=== PATIENT | male | born 1965 | race Caucasian/White ===

== ENCOUNTER 2017-02-10 15:34 | Emergency (ER) | payer OTHER ==
[~2017-02-10] VITALS: Ht 170.2 cm; Wt 117.3 kg
[2017-02-10] MEDS ORDERED: ALOG25TA PO (15:52)
[2017-02-10] MEDS ORDERED: CITA20TA4 PO (15:52)
[2017-02-10] MEDS ORDERED: ATOR80TA59 PO (15:52)
[2017-02-10] MEDS ORDERED: METF10004 PO (15:52)
[2017-02-10] MEDS ORDERED: GLYB5TA PO (15:52)
[2017-02-10] MEDS ORDERED: METO1TAB32 PO (15:52)
[2017-02-10] MEDS ORDERED: D 50CAP PO (15:52)
[2017-02-10] MEDS ORDERED: TOUJ1.2I SQ (15:52)
[2017-02-10] MEDS ORDERED: ROLLMIS2 XX (16:56)
[2017-02-10 17:21] VITALS: BP 147/85
--- NOTE | 2017-02-11 07:48 | REP ---
REASON: Right hip pain. COMPARISON: 01/26/2012. FINDINGS: The joint space is symmetric and relatively well maintained. There is no acute fracture or dislocation. No change from the prior exam. AP PELVIS: REASON: Pain. A single AP view of the pelvis was performed. The hip joint spaces are symmetric and relatively well maintained. There is no acute fracture or destructive osseous lesion. Signed by Leobardo Cruz DO 02/11/2017 08:56 A
--- NOTE | 2017-02-11 07:49 | REP ---
REASON: Knee pain. FINDINGS: The compartments are symmetric and relatively well maintained. There is no acute fracture or destructive osseous lesion. No significant change from 02/04/2010. Signed by Leobardo Cruz DO 02/11/2017 08:56 A
== END 2017-02-10 17:23 | disposition home or self-care (01) ==
LOC: M ED 15:34 → EDBD 15:34 → M ED 17:23
DX: S80.01XA Contusion of right knee, initial encounter (principal); S70.01XA Contusion of right hip, initial encounter; R26.9 Unspecified abnormalities of gait and mobility; W00.0XXA Fall on same level due to ice and snow, initial encounter; Y92.009 Unspecified place in unspecified non-institutional (private) residence as the place of occurrence of the external cause; Y93.01 Activity, walking, marching and hiking; Y99.8 Other external cause status; E11.9 Type 2 diabetes mellitus without complications; I10 Essential (primary) hypertension; M54.9 Dorsalgia, unspecified; G89.29 Other chronic pain; F17.210 Nicotine dependence, cigarettes, uncomplicated; M19.90 Unspecified osteoarthritis, unspecified site; Z79.4 Long term (current) use of insulin; Z79.899 Other long term (current) drug therapy; Z79.84 Long term (current) use of oral hypoglycemic drugs

== ENCOUNTER → 2018-12-17 | Outpatient (REF) | payer OTHER, MEDICAID ==
[~2018-12-17] MED LIST: ALOG25TA PO; ATOR80TA59 PO; CITA20TA6 PO; D 50CAP PO; GLYB5TA PO; METF10004 PO; METO1TAB32 PO; ROLLMIS2 XX; TOUJ1.2I SQ
[2018-12-17 17:58] LABS: BASO # 0.1 10^3/uL (0.0-0.2); BASO % 0.9 % (0.0-1.0); EOS # 0.2 10^3/uL (0.0-0.5); EOS % 2.9 % (0.0-3.0); HEMATOCRIT 45.3 % (42.0-52.0); HEMOGLOBIN 15.2 g/dl (13.5-17.5); LYMPH # 2.6 10^3/uL (1.5-5.0); LYMPH % 34.8 % (24.0-44.0); MEAN CORPUSCULAR HEMOGLOBIN 29.5 pg (27.0-33.0); MEAN CORPUSCULAR HGB CONC 33.6 g/dl (32.0-36.5); MONO # 0.7 10^3/uL (0.0-0.8); MONO % 9.6 % (0.0-5.0); NEUTROPHILS # 3.9 10^3/uL (1.5-8.5); NEUTROPHILS % 51.4 % (36.0-66.0); PLATELET COUNT, AUTOMATED 191 10^3/uL (150-450); RED BLOOD COUNT 5.15 10^6/uL (4.30-6.10); WHITE BLOOD COUNT 7.6 10^3/uL (4.0-10.0)
[2018-12-17 18:04] LABS: ALBUMIN 4.1 GM/DL (3.2-5.2); ALT/SGPT 44 U/L (12-78); BILIRUBIN,TOTAL 0.6 MG/DL (0.2-1.0); BLOOD UREA NITROGEN 17 MG/DL (7-18); CALCIUM LEVEL 9.8 MG/DL (8.5-10.1); CARBON DIOXIDE LEVEL 28 MEQ/L (21-32); CHLORIDE LEVEL 99 MEQ/L (98-107); CHOLESTEROL LEVEL 155 MG/DL (<200); CHOLESTEROL RISK RATIO 3.974 (<5); CREATININE FOR GFR 0.99 MG/DL (0.70-1.30); FREE T4 1.08 NG/DL (0.76-1.46); GLOMERULAR FILTRATION RATE > 60.0 (>56); GLUCOSE, FASTING 314 MG/DL (70-100); HDL CHOLESTEROL 39 MG/DL (>40); LDL CHOLESTEROL 70 MG/DL (<100); NON-HDL-C 116 MG/DL; POTASSIUM SERUM 4.3 MEQ/L (3.5-5.1); SODIUM LEVEL 136 MEQ/L (136-145); TOTAL 25(OH) VITAMIN D 30.2 NG/ML (30.0-100.0); TOTAL PROTEIN 7.8 GM/DL (6.4-8.2); TRIGLYCERIDES LEVEL 232 MG/DL (<150)
[2018-12-17 18:05] LABS: HEMOGLOBIN A1c 10.8 %
== END ==
LOC: M LAB REF 16:35
PROVIDERS: ATTEND Nurse Practitioner Family
DX: Z00.01 Encounter for general adult medical examination with abnormal findings (principal)

== ENCOUNTER → 2019-04-08 | Outpatient (REF) | payer OTHER, MEDICAID ==
[2019-04-08 19:09] LABS: ALBUMIN 4.7 GM/DL (3.2-5.2); ALT/SGPT 37 U/L (12-78); BLOOD UREA NITROGEN 15 MG/DL (7-18); CALCIUM LEVEL 9.4 MG/DL (8.5-10.1); CARBON DIOXIDE LEVEL 30 MEQ/L (21-32); CHLORIDE LEVEL 102 MEQ/L (98-107); CHOLESTEROL LEVEL 87 MG/DL (<200); CHOLESTEROL RISK RATIO 2.718 (<5); GLOMERULAR FILTRATION RATE > 60.0 (>56); GLUCOSE, FASTING 81 MG/DL (70-100); HDL CHOLESTEROL 32 MG/DL (>40); LDL CHOLESTEROL 35 MG/DL (<100); NON-HDL-C 55 MG/DL; POTASSIUM SERUM 4.1 MEQ/L (3.5-5.1); SODIUM LEVEL 140 MEQ/L (136-145); TOTAL PROTEIN 8.2 GM/DL (6.4-8.2); TRIGLYCERIDES LEVEL 101 MG/DL (<150)
[2019-04-08 19:27] LABS: HEMOGLOBIN A1c 10.7 %
== END ==
LOC: M LAB REF 17:49
PROVIDERS: ATTEND Family Medicine
DX: E11.9 Type 2 diabetes mellitus without complications (principal)

== ENCOUNTER → 2019-05-12 | Outpatient (CLI) | payer OTHER, MEDICAID ==
--- NOTE | 2019-05-12 19:12 | REPPI ---
Lumbar spine seven views including lateral views were in flexion and extension: Comparison is 08/29/2010. There are anterior osteophytes at every lumbar level. These osteophytes bridging at L2-3, L3-4 and L5 S1. This has progressed. Findings are compatible with multilevel degenerative disc disease. There is no spondylolysis. There is no spondylolisthesis. There is no listhesis on the flexion or extension views. The pedicles and facets are unremarkable. The sacroiliac articulations are unremarkable. Impression: Multilevel degenerative disc disease. No spondylolysis or spondylolisthesis including flexion and extension views. Electronically Signed by Ford Esquivel MD 05/12/2019 07:03 P
== END ==
LOC: M PLAIMG 10:17
PROVIDERS: ATTEND Family Medicine
DX: M54.5 Low back pain (principal)

== ENCOUNTER → 2019-08-21 | Outpatient (REF) | payer OTHER, MEDICAID ==
[2019-08-21 12:02] LABS: BASO # 0.1 10^3/uL (0.0-0.2); BASO % 0.6 % (0.0-1.0); EOS # 0.2 10^3/uL (0.0-0.5); EOS % 1.7 % (0.0-3.0); HEMATOCRIT 47.5 % (42.0-52.0); HEMOGLOBIN 15.2 g/dl (13.5-17.5); LYMPH # 4.4 10^3/uL (1.5-5.0); LYMPH % 32.9 % (24.0-44.0); MEAN CORPUSCULAR HEMOGLOBIN 28.2 pg (27.0-33.0); MEAN CORPUSCULAR VOLUME 88.1 fl (80.0-96.0); MONO # 1.1 10^3/uL (0.0-0.8); MONO % 8.4 % (0.0-5.0); NEUTROPHILS # 7.5 10^3/uL (1.5-8.5); NEUTROPHILS % 55.9 % (36.0-66.0); PLATELET COUNT, AUTOMATED 246 10^3/uL (150-450); RED BLOOD COUNT 5.39 10^6/uL (4.30-6.10); WHITE BLOOD COUNT 13.5 10^3/uL (4.0-10.0)
[2019-08-21 12:56] LABS: HEMOGLOBIN A1c 9.1 %
[2019-08-21 13:17] LABS: ALBUMIN 4.2 GM/DL (3.2-5.2); ALT/SGPT 39 U/L (12-78); BILIRUBIN,TOTAL 0.8 MG/DL (0.2-1.0); BLOOD UREA NITROGEN 23 MG/DL (7-18); CALCIUM LEVEL 9.4 MG/DL (8.5-10.1); CARBON DIOXIDE LEVEL 28 MEQ/L (21-32); CHLORIDE LEVEL 102 MEQ/L (98-107); CHOLESTEROL LEVEL 178 MG/DL (<200); CHOLESTEROL RISK RATIO 3.787 (<5); CREATININE FOR GFR 0.96 MG/DL (0.70-1.30); GLOMERULAR FILTRATION RATE > 60.0 (>56); GLUCOSE, FASTING 61 MG/DL (70-100); HDL CHOLESTEROL 47 MG/DL (>40); LDL CHOLESTEROL 101 MG/DL (<100); NON-HDL-C 131 MG/DL; POTASSIUM SERUM 3.7 MEQ/L (3.5-5.1); SODIUM LEVEL 138 MEQ/L (136-145); TOTAL PROTEIN 7.7 GM/DL (6.4-8.2); TRIGLYCERIDES LEVEL 152 MG/DL (<150)
[2019-08-22 18:23] LABS: TOTAL 25(OH) VITAMIN D 32.3 NG/ML (30.0-100.0)
== END ==
LOC: M LAB REF 11:15
PROVIDERS: ATTEND Family Medicine
DX: E11.65 Type 2 diabetes mellitus with hyperglycemia (principal)

== ENCOUNTER → 2019-11-21 | Outpatient (CLI) | payer OTHER, MEDICAID ==
[~2019-11-21] MED LIST changes: +ASPI81TA26 PO; +BASA100I SQ; +CHOL50003 PO; +CYCL-707 PO; +FLOM0.4C39 PO; +LEVO750T13 PO; +LISI40TA PO; +MELO15TA28 PO; +METO1TAB33 PO; +PERCOCET PO; +TRAM50TA2 PO; +TRUL0.5I SQ
[2019-11-21 13:57] LABS: ALBUMIN 4.2 GM/DL (3.2-5.2); ALT/SGPT 39 U/L (12-78); BILIRUBIN,TOTAL 0.8 MG/DL (0.2-1.0); BLOOD UREA NITROGEN 19 MG/DL (7-18); CALCIUM LEVEL 9.4 MG/DL (8.5-10.1); CARBON DIOXIDE LEVEL 29 MEQ/L (21-32); CHLORIDE LEVEL 102 MEQ/L (98-107); CHOLESTEROL LEVEL 101 MG/DL (<200); CHOLESTEROL RISK RATIO 2.463 (<5); GLOMERULAR FILTRATION RATE > 60.0 (>56); GLUCOSE, FASTING 138 MG/DL (70-100); HDL CHOLESTEROL 41 MG/DL (>40); LDL CHOLESTEROL 41 MG/DL (<100); NON-HDL-C 60 MG/DL; POTASSIUM SERUM 4.4 MEQ/L (3.5-5.1); SODIUM LEVEL 139 MEQ/L (136-145); TOTAL 25(OH) VITAMIN D 41.3 NG/ML (30.0-100.0); TOTAL PROTEIN 7.5 GM/DL (6.4-8.2); TRIGLYCERIDES LEVEL 97 MG/DL (<150)
[2019-11-21 15:47] LABS: HEMOGLOBIN A1c 9.9 %
== END ==
LOC: M PLALAB 10:32
PROVIDERS: ATTEND Family Medicine Addiction Medicine
DX: E11.65 Type 2 diabetes mellitus with hyperglycemia (principal); E78.5 Hyperlipidemia, unspecified

== ENCOUNTER 2019-12-22 18:14 | Inpatient (IN) | payer OTHER, MEDICAID ==
[~2019-12-22] VITALS: Ht 170.2 cm; Wt 115.0 kg
[~2019-12-22 18:14] MED LIST changes: -ASPI81TA26 PO; -BASA100I SQ; -CHOL50003 PO; -CYCL-707 PO; -FLOM0.4C39 PO; -LEVO750T13 PO; -LISI40TA PO; -MELO15TA28 PO; -METO1TAB33 PO; -PERCOCET PO; -TRAM50TA2 PO; -TRUL0.5I SQ
[2019-12-22] MEDS ORDERED: LISI40TA PO ×2 (18:31→21:33)
[2019-12-22] MEDS ORDERED: CYCL-707 PO ×2 (18:31→21:33)
[2019-12-22] MEDS ORDERED: MELO15TA28 PO ×2 (18:31→21:33)
[2019-12-22] MEDS ORDERED: METO1TAB33 PO ×2 (18:31→21:33)
[2019-12-22] MEDS ORDERED: ASPI81TA26 PO (18:31)
[2019-12-22] MEDS ORDERED: TRAM50TA2 PO ×2 (18:31→21:33)
[2019-12-22] MEDS ORDERED: BASA100I SQ (18:31)
[2019-12-22] MEDS ORDERED: TRUL0.5I SQ (18:31)
[2019-12-22] MEDS ORDERED: ACETAMINOPHEN TAB 650MG DOSE (2X325MG) PO ONE (18:45)
[2019-12-22 19:10] LABS: BASO # 0.1 10^3/uL (0.0-0.2); BASO % 0.5 % (0.0-1.0); EOS % 0.2 % (0.0-3.0); HEMATOCRIT 40.5 % (42.0-52.0); HEMOGLOBIN 13.2 g/dl (13.5-17.5); LYMPH # 1.4 10^3/uL (1.5-5.0); LYMPH % 5.2 % (24.0-44.0); MEAN CORPUSCULAR HEMOGLOBIN 27.7 pg (27.0-33.0); MEAN CORPUSCULAR HGB CONC 32.6 g/dl (32.0-36.5); MEAN CORPUSCULAR VOLUME 84.9 fl (80.0-96.0); MONO # 1.9 10^3/uL (0.0-0.8); MONO % 7.1 % (0.0-5.0); NEUTROPHILS # 22.6 10^3/uL (1.5-8.5); NEUTROPHILS % 85.3 % (36.0-66.0); PLATELET COUNT, AUTOMATED 267 10^3/uL (150-450); RED BLOOD COUNT 4.77 10^6/uL (4.30-6.10); WHITE BLOOD COUNT 26.5 10^3/uL (4.0-10.0)
[2019-12-22 19:47] LABS: ERYTHROCYTE SEDIMENTATION RATE 66 mm/hr (0-20)
--- NOTE | 2019-12-22 20:20 | REPVR ---
PROCEDURE INFORMATION: Exam: XR Chest, 1 View Exam date and time: 12/22/2019 7:14 PM Age: 54 years old Clinical indication: Fever TECHNIQUE: Imaging protocol: XR of the chest Views: 1 view. COMPARISON: No relevant prior studies available. FINDINGS: Lungs: There is severe elevation of the right hemidiaphragm to the level of the infrahilar region. This may be secondary to paralysis of the right hemidiaphragm. Surgical clips are noted right upper quadrant probably at the gallbladder fossa. There is no evidence of localized infiltrate. AP and lateral view of the chest should be considered to better evaluate the right lung base. Pleural space: Unremarkable. No pleural effusion. No pneumothorax. Heart/Mediastinum: The heart is normal in size. Bones/joints: There is osteophyte formation of the thoracic spine. IMPRESSION: 1. Clear appearing lungs. 2. Severe elevation of the right hemidiaphragm possibly chronic. Suggest PA and lateral view of the chest for clarification. Electronically signed by: Stanford Hughes On 12/22/2019 20:20:37 PM
--- NOTE | 2019-12-22 20:25 | REPVR ---
PROCEDURE INFORMATION: Exam: XR Right Foot Exam date and time: 12/22/2019 7:14 PM Age: 54 years old Clinical indication: Pain; Foot; Right; Additional info: Fever TECHNIQUE: Imaging protocol: XR Right foot. Views: 1 or 2 views. COMPARISON: No relevant prior studies available. FINDINGS: Bones/joints: There is no evidence of fracture or bone loss. Moderate calcaneal spurs are identified. Soft tissues: There is severe soft tissue swelling dorsal aspect of the foot with a large amount of subcutaneous air. The subcutaneous air would be suspicious for infection with gas-forming organism. Prominent vascular calcification is identified. IMPRESSION: Severe soft tissue swelling and subcutaneous air at the dorsal aspect of the foot especially at the 4th and 5th metatarsals. This is highly suspicious for infection with gas-forming organism. Electronically signed by: Stanford Hughes On 12/22/2019 20:25:05 PM
[2019-12-22] MEDS ORDERED: ERTAPENEM SODIUM 1 GM in NS MINI-BAG PLUS 50 ML IV ONE (20:45)
[2019-12-22] MEDS ORDERED: CHOL50003 PO (21:33)
[2019-12-22] MEDS ORDERED: CYCLOBENZAPRINE 10MG TABLET PO PRN (23:15)
[2019-12-22] MEDS ORDERED: DEXTROSE 50% 50 ML SYRINGE IV PRN (23:15)
[2019-12-22] MEDS ORDERED: GLUCAGON INJ 1MG VIAL SC PRN (23:15)
[2019-12-22] MEDS ORDERED: GLUCOSE 4GM CHEW TABLET PO PRN (23:15)
--- NOTE | 2019-12-22 23:19 | HPEPDOC ---
General Date of Admission 12/22/19 Date of Service: Dec 22, 2019 Chief Complaint The patient is a 54-year-old male admitted with a reason for visit of Right Foot Pain. History of Present Illness Patient is 54 years old male with past history of type 2 diabetes, hypertension presented to the hospital with right foot pain. Patient stated that for past 5-6 days he has been having swollen right foot with increased redness and pain. Patient stated that he hit his right foot against the door around 6 days ago and after that he started having these symptoms. In ER patient was found to have leukocytosis of 26.5, hemoglobin 13.2, lactic acid 2.2, CRP 28.9, sedimentation rate 66. Foot x-ray showed Severe soft tissue swelling and subcutaneous air at the dorsal aspect of the foot especially at the 4th and 5th metatarsals. This is highly suspicious for infection with gas-forming organism Home Medications Scheduled Alogliptin Benzoate (Alogliptin) 25 Mg Tab, 25 MG PO DAILY, (Reported) Aspirin (Aspirin EC) 81 Mg Tablet.dr, 1 TAB PO DAILY, (Reported) Atorvastatin Calcium (Atorvastatin Calcium) 80 Mg Tab, 80 MG PO DAILY, (Reported) Cholecalciferol (Vitamin D3) (Vitamin D3) 125 Mcg Capsule, 125 MCG PO DAILY, (Reported) Citalopram Hydrobromide (Citalopram HBr) 20 Mg Tab, 20 MG PO DAILY, (Reported) Dulaglutide (Trulicity) 1.5 Mg/0.5 Ml Pen.injctr, 1.5 MG SQ 1XWK, (Reported) TAKES ON SUNDAY Insulin Glargine,Hum.rec.anlog (Basaglar Kwikpen U-100) 100 Unit/1 Ml Insuln.pen, 100 UNITS SQ DAILY, (Reported) Lisinopril (Lisinopril) 40 Mg Tablet, 40 MG PO DAILY, (Reported) Meloxicam (Meloxicam) 15 Mg Tablet, 15 MG PO DAILY, (Reported) Metformin HCl (Metformin HCl) 1,000 Mg Tab, 1,000 MG PO BID, (Reported) Metoprolol Succinate (Metoprolol Succinate) 100 Mg Tab.er.24h, 100 MG PO DAILY, (Reported) Scheduled PRN Cyclobenzaprine HCl (Cyclobenzaprine HCl) 10 Mg Tablet, 10 MG PO TID PRN for MUSCLE SPASMS, (Reported) Tramadol HCl (Tramadol HCl) 50 Mg Tablet, 50 MG PO Q4H PRN for PAIN, (Reported) Allergies Coded Allergies: No Known Allergies (Unverified , 02/10/17) Past Medical History Medical History Hypertension, type 2 diabetes Family History Father from colon cancer, mother from brain cancer Social History * Smoker: Denies Alcohol: Denies Drugs: denies A-FIB/CHADSVASC A-FIB History Current/History of A-Fib/PAF?: No Current PO Anticoag Therapy: No Review of Systems Constitutional: Denies: Chills, Fever Eyes: Denies: Pain ENT: Denies: Head Aches, Ear Pain Skin: Reports: Lesions, Breakdown Pulmonary: Denies: Dyspnea, Cough Gastrointestinal: Denies: Nausea, Vomiting Genitourinary: Denies: Dysuria, Frequency Hematologic: Denies: Bruising Endocrine: Denies: Polydipsia, Polyphagia Musculoskeletal: Denies: Neck Pain Neurological: Denies: Weakness Psych: Reports: Mood Normal Physical Examination General Exam: Positive: Alert, Cooperative Eye Exam: Positive: PERRLA ENT Exam: Positive: Atraumatic, Other ENT Neck Exam: Positive: Supple; Negative: JVD Chest Exam: Positive: Clear to auscultation Heart Exam: Positive: Rate Normal Telemetry: Positive: No significant arrhythmia Abdomen Exam: Positive: Normal bowel sounds Extremity Exam: Positive: Tenderness (right foot), Swelling (right foot), Other (there is small noninfected wound on the lateral plantar surface of the right foot around 1-2 cm. On the dorsal part of the right foot skin abrasion around 5- 7 cm. Right foot swollen with erythema) Skin Exam: Positive: Breakdown Neuro Exam: Positive: Normal Gait, Cranial Nerves 3-12 NL Psych Exam: Positive: Mental status NL Vital Signs Vital Signs Date Time Temp Pulse Resp B/P (MAP) Pulse Ox O2 Delivery O2 Flow Rate FiO2 12/22/19 21:23 99.6 100 20 131/71 (91) 96 Room Air Laboratory Data Labs 24H Laboratory Tests 2 12/22/19 18:37: Immature Granulocyte % (Auto) 1.7, Neutrophils (%) (Auto) 85.3H, Lymphocytes (%) (Auto) 5.2L, Monocytes (%) (Auto) 7.1H, Eosinophils (%) (Auto) 0.2, Basophils (%) (Auto) 0.5, Neutrophils # (Auto) 22.6H, Lymphocytes # (Auto) 1.4L, Monocytes # (Auto) 1.9H, Eosinophils # (Auto) 0.0, Basophils # (Auto) 0.1, Nucleated Red Blood Cells % (auto) 0.0, Erythrocyte Sedimentation Rate 66H, Lactic Acid Level 2.2*H, C-Reactive Protein, Quantitative 28.90H 12/22/19 18:58: POC Glucose (Misc Panel) 160H, POC Sodium (Misc Panel) 132L, POC Potassium (Misc Panel) 3.6, POC Chloride (Misc Panel) 92L, POC Total CO2 (Misc Panel) 25.0, POC Blood Urea Nitrogen (Misc Panel 33H, POC Ionized Calcium (Misc Panel) 4.3L, POC Creatinine (Misc Panel) 1.4H, POC Hematocrit (Misc Panel) 44.0 CBC/BMP Laboratory Tests 12/22/19 18:37 Microbiology Microbiology 12/22/19 Blood Culture, Received Pending 12/22/19 Blood Culture, Received Pending Assessment/Plan Patient is 54 years old male with past history of type 2 diabetes, hypertension presented to the hospital with right foot pain. Patient stated that for past 5-6 days he has been having swollen right foot with increased redness and pain. Patient stated that he hit his right foot against the door around 6 days ago and after that he started having these symptoms. In ER patient was found to have leukocytosis of 26.5, hemoglobin 13.2, lactic acid 2.2, CRP 28.9, sedimentation rate 66. Foot x-ray showed Severe soft tissue swelling and subcutaneous air at the dorsal aspect of the foot especially at the 4th and 5th metatarsals. 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
[2019-12-22] MEDS ORDERED: VANCOMYCIN HCL 1,000 MG, VIAL MATE ADAPTER 1 EACH in D5W 250 ML IV ONE (23:30)
[2019-12-22] MEDS: HumaLOG INSULIN (NovoLOG) PER UNIT SC SCH (23:48)
[2019-12-23] VITALS (13 sets, daily range): BP systolic 94–155; BP diastolic 50–87
[2019-12-23] MEDS: NS 1,000 ML IV SCH ×3 (01:33→19:50)
[2019-12-23] MEDS: LEVEMIR (INSULIN DETEMIR) 1 UNITS/0.01ML SC SCH ×2 (01:33→08:04)
[2019-12-23] MEDS: ACETAMINOPHEN TAB 650MG DOSE (2X325MG) PO PRN (01:39)
[2019-12-23] MEDS: traMADol 50 MG TAB PO PRN (01:40)
[2019-12-23] MEDS ORDERED: VANCOMYCIN HCL 1,000 MG, VIAL MATE ADAPTER 1 EACH in D5W 250 ML IV SCH (02:00)
[2019-12-23] MEDS: CEFEPIME HCL 2 GM in D5W 50 ML IV SCH ×2 (05:55→19:50)
[2019-12-23 06:17] LABS: HEMATOCRIT 35.6 % (42.0-52.0); HEMOGLOBIN 11.9 g/dl (13.5-17.5); MEAN CORPUSCULAR HEMOGLOBIN 27.9 pg (27.0-33.0); MEAN CORPUSCULAR HGB CONC 33.4 g/dl (32.0-36.5); MEAN CORPUSCULAR VOLUME 83.4 fl (80.0-96.0); PLATELET COUNT, AUTOMATED 243 10^3/uL (150-450); RED BLOOD COUNT 4.27 10^6/uL (4.30-6.10); WHITE BLOOD COUNT 20.8 10^3/uL (4.0-10.0)
[2019-12-23 06:34] LABS: BLOOD UREA NITROGEN 38 MG/DL (7-18); CALCIUM LEVEL 8.9 MG/DL (8.5-10.1); CARBON DIOXIDE LEVEL 27 MEQ/L (21-32); CHLORIDE LEVEL 95 MEQ/L (98-107); CREATININE FOR GFR 1.17 MG/DL (0.70-1.30); GLOMERULAR FILTRATION RATE > 60.0 (>56); GLUCOSE, FASTING 158 MG/DL (70-100); MAGNESIUM LEVEL 1.4 MG/DL (1.8-2.4); POTASSIUM SERUM 3.1 MEQ/L (3.5-5.1); SODIUM LEVEL 129 MEQ/L (136-145)
[2019-12-23] MEDS ORDERED: NS 500 ML IV ONE (07:30)
[2019-12-23] MEDS ORDERED: POTASSIUM CHLORIDE 10 MEQ SR TABLET PO ONE (07:45)
[2019-12-23] MEDS: MAG SULF 1GM/100ML (MAG RUN) 1 GM in IV 1 EA IV SCH ×4 (08:18→11:00)
[2019-12-23] MEDS: HumaLOG INSULIN (NovoLOG) PER UNIT SC SCH ×2 (08:18→12:00)
[2019-12-23] MEDS: MELOXICAM (MOBIC) 7.5 MG TAB PO SCH (08:19)
[2019-12-23] MEDS: ATORVASTATIN 20 MG TAB PO SCH (08:19)
[2019-12-23] MEDS: CitaloPRAM (CeleXA) 20 MG TAB PO SCH (08:19)
[2019-12-23] MEDS: ASPIRIN 81 MG ENTERIC TAB PO SCH (08:19)
--- NOTE | 2019-12-23 08:25 | ECGEPIP ---
- ED Test Date: 2019-12-22 Pat Name: NADIA PERDOMO Department: Room: [place] [address] Gender: Male Pan Devulcanizer: BARBARA : 1965 Requested By: Pollo Banks Order Number: [id number] Reading MD: Pollo Jane Measurements Intervals [place] Rate: 106 P: 67 WI: 128 QRS: 13 QRSD: 100 T: 77 QT: 344 QTc: 459 Interpretive Statements SINUS TACHYCARDIA POOR R WAVE PROGRESSION NSTTW ABNORMALITY(S) NO PRIORS FOR COMPARISON Electronically Signed on 12-23-2019 8:25:17 EDT by Pollo Jane
[2019-12-23] MEDS ORDERED: METOPROLOL SUCC (TopROL XL) 100MG *XL* TAB PO SCH (09:00)
[2019-12-23] MEDS ORDERED: lisinopriL 40 MG TAB PO SCH (09:00)
--- NOTE | 2019-12-23 10:59 | REPVR ---
PROCEDURE INFORMATION: Exam: MR Right Lower Extremity Other Than Joint Without Contrast; Foot Exam date and time: 12/23/2019 10:40 AM Age: 54 years old Clinical indication: Pain; Foot and other: Osteomyelitis of right foot TECHNIQUE: Imaging protocol: MR of the Right lower extremity without contrast. Exam focused on the foot. COMPARISON: CR Foot, Ap, Lat RIGHT 12/22/2019 7:08 PM FINDINGS: Limitations: Mild motion on some sequences. Bones and cartilage: There is no significant marrow edema, osseous erosion or cortical destruction to indicate osteomyelitis. There are again 1st through 5th hammertoe deformities. Joint spaces: There are very small effusions of the metatarsophalangeal joints. LIGAMENTS: Lisfranc ligament: Unremarkable. No evidence of tear. TENDONS: Flexor tendons of foot: Small fluid is present in the 5th flexor digitorum tendon sheath at the level of the metatarsal distally. The flexor tendons themselves are intact, and there is no other significant peritendinous fluid. Tibialis posterior tendon: Unremarkable as visualized. Peroneal tendons: Unremarkable as visualized. Extensor tendons of foot: Unremarkable. No evidence of tear. Tibialis anterior tendon: Unremarkable as visualized. Tarsal canal (Sinus tarsi): Unremarkable. Muscles: Moderate edema involves much of the plantar and interosseous musculature of the foot. Soft tissues: Moderate subcutaneous edema is present about much of the foot. There is some thin curvilinear fluid in the deep soft tissues over the plantar aspect of the 1st metatarsal neck and head, potentially a small abscess. There is a plantar soft tissue ulceration at the level of the 5th metatarsal head, extending to the bone. Plantar fascia: Unremarkable as visualized. IMPRESSION: 1. Moderate subcutaneous edema about much of the foot, could reflect cellulitis. 2. Thin curvilinear fluid in the deep soft tissues over the plantar aspect of the 1st metatarsal neck and head, potentially a small abscess. 3. Plantar soft tissue ulceration at the level of the 5th metatarsal head, extending to the bone. 4. Moderate edema of much of the plantar and interosseous musculature of the foot, could be reactive or related to myositis. 5. Small fluid in the 5th flexor digitorum tendon sheath at the level of the metatarsal distally, suggesting mild tenosynovitis. 6. No evidence for osteomyelitis. 7. 1st through 5th hammertoe deformities with very small nonspecific effusions of the metatarsophalangeal joints. Electronically signed by: Dayne Frye On 12/23/2019 10:59:45 AM
[2019-12-23] MEDS: VANCOMYCIN HCL 1,000 MG, VIAL MATE ADAPTER 1 EACH in D5W 250 ML IV SCH ×2 (12:11→21:32)
--- NOTE | 2019-12-23 14:20 | CR ---
DATE OF CONSULTATION: 12/23/2019 REASON FOR CONSULTATION: Right foot infection. HISTORY OF PRESENT ILLNESS: This patient is a pleasant 54-year-old male who was admitted December 21 due to right foot infection. He states this has been present about 5-6 days. He believes he may have stepped on something and has noticed greatly increasing redness and pain. MEDICAL HISTORY: Hypertension, diabetes and hyperlipidemia. FAMILY HISTORY: Includes colon cancer and brain cancer. SOCIAL HISTORY: Denies smoking, alcohol or other drug use. ALLERGIES: NO KNOWN DRUG ALLERGIES. LABORATORY DATA: Reviewed. White blood cell count on admission 26.5, today is 20.8, ESR on admission 66, CRP 28.9, lactic acid 2.2. Wound cultures are pending. Blood cultures positive for gram positive cocci in clusters. IMAGING DATA: X-rays were taken which show soft tissue subcutaneous air around the 4th and 5th metatarsals. MRI was performed which shows subcutaneous edema potentially an abscess around the plantar 1st metatarsal, ulceration extending to the bone around the 5th metatarsal head and general edema along the plantar musculature. REVIEW OF SYSTEMS: Include positive for fever. He denies nausea or vomiting. PHYSICAL EXAMINATION: Vitals are reviewed. Temperature was positive on admission, 101, current temperature 98.7. Lower extremity examination: There is significant erythema, edema and tissue necrosis to the right dorsal foot, pedal pulses are nonpalpable. The 5th toe is fully gangrenous without capillary refill. There is ulceration on the plantar aspect of the 5th metatarsal head with necrotic tissue. 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 PLAN: The patient is to go to the OR today for 5th toe and ray amputation, incision and drainage. He is to be NPO, COVID test ordered, continue empiric antibiotics. Will take additional cultures in the OR. [facility] MED[facility] CENTERIzaiah
[2019-12-23] MEDS ORDERED: LIDOCAINE 1% SDV 30ML VIAL As Ordered ONE (15:16)
[2019-12-23] MEDS ORDERED: BUPIVACAINE HCL 0.5% 30 ML VIAL As Ordered ONE (15:16)
[2019-12-23] MEDS ORDERED: propofoL 500 MG/50 ML VIAL As Ordered ONE (17:05)
[2019-12-23] MEDS ORDERED: MIDAZOLAM INJ 2MG/2ML VIAL (J2250 PER 1MG) As Ordered ONE (17:06)
[2019-12-23] MEDS ORDERED: fentaNYL 100 MCG/2 ML INJECTION (J3010) As Ordered ONE (17:21)
[2019-12-23] MEDS: fentaNYL 100 MCG/2 ML INJECTION (J3010) IV PRN ×4 (17:25→17:40)
[2019-12-23] MEDS ORDERED: PERCOCET 5MG/325MG TAB As Ordered ONE ×2 (17:29→17:59)
[2019-12-23] MEDS: PERCOCET 5MG/325MG TAB PO PRN ×3 (17:30→22:19)
[2019-12-23] MEDS ORDERED: LR 1,000 ML IV SCH (17:45)
[2019-12-23] MEDS ORDERED: ONDANSETRON 4MG/2ML VIAL IV PRN (17:45)
--- NOTE | 2019-12-23 19:13 | IPNPDOC ---
Subjective Date Seen The patient was seen on 12/23/19. Subjective Chief Complaint/HPI Mr. Sanchez is a 54 year old male with DM2 and HTN who presents here for right foot pain found to have right foot cellulitis with gas. Overnight, he had a fever of 100.6. This morning, he was still having pain from the foot. Denies dyspnea, chest pain, abdominal pain, or dysuria. Constitutional: Reports: Fever Pulmonary: Denies: Dyspnea Cardiovascular: Denies: Chest Pain Gastrointestinal: Denies: Abdominal Pain Genitourinary: Denies: Dysuria Musculoskeletal: Reports: Foot Pain (right) Objective Physical Examination General Exam: Positive: Alert, Cooperative Eye Exam: Positive: PERRLA ENT Exam: Positive: Atraumatic, Other ENT Neck Exam: Positive: Supple; Negative: JVD Chest Exam: Positive: Clear to auscultation Heart Exam: Positive: Rate Normal Telemetry: Positive: No significant arrhythmia Abdomen Exam: Positive: Normal bowel sounds Extremity Exam: Positive: Tenderness (right foot), Swelling (right foot), Other (there is small noninfected wound on the lateral plantar surface of the right foot around 1-2 cm. On the dorsal part of the right foot skin abrasion around 5- 7 cm. Right foot swollen with erythema) Skin Exam: Positive: Breakdown Neuro Exam: Positive: Normal Gait, Cranial Nerves 3-12 NL Psych Exam: Positive: Mental status NL Assessment /Plan Assessment Mr. Sanchez is a 54 year old male with DM2 here with sepsis 2/2 right foot cellulitis with gas demonstrated on XR. This morning, podiatry was consulted. Recommendations appreciated. Planning for debridement today. Continue with broad spectrum antibiotics. Pending culture results. Plan/VTE VTE Prophylaxis Ordered?: Yes Plan 1. Sepsis secondary to right foot infection -3/4 SIRS criteria (Fever, leukocytosis, and tachycardia) -On IV fluids and antibiotics 2. Right foot cellulitis with gas -Seen on XR -Podiatry consulted. Recommendations appreciated. -Going to debridement today. 12/23/2019 -Pending cultures -Continue broad spectrum antibiotics 3. DM -Carb consistent diet -Continue with levemir and sliding scale insulin -Levemir was decreased today due to NPO status for surgery. Can increase Levemir tomorrow. 4. HTN -Continue Lisinopril and Toprol XL 5. Dyslipidemia -Continue statin 6. Anxiety/Depression -continue citalopram 7. DVT ppx -Just had right foot surgery. Compression stocking on left foot. Will need to touch base with podiatry when to start chemical prophylaxis. VS, I&O, 24H, Fishbone Vital Signs/I&O Vital Signs Date Time Temp Pulse Resp B/P (MAP) Pulse Ox O2 Delivery O2 Flow Rate FiO2 12/23/19 18:30 98.6 92 18 116/72 (87) 90 Room Air 12/23/19 17:12 100 I&O- Last 24 Hours up to 6 AM 12/23/19 06:00 Intake Total 290 ml Output Total 0 ml Balance 290 ml Laboratory Data 24H LABS Laboratory Tests 2 12/22/19 23:45: Bedside Glucose (Misc Panel) 166H 12/23/19 01:06: Lactic Acid Followup at 4 Hours 1.7 12/23/19 02:08: Methicillin-Resist S.aureus DNA PCR NOT DETECTED 12/23/19 05:41: Nucleated Red Blood Cells % (auto) 0.0, Anion Gap 7L, Glomerular Filtration Rate > 60.0, Calcium Level 8.9, Magnesium Level 1.4L 12/23/19 07:45: Bedside Glucose (Misc Panel) 121H 12/23/19 11:40: Coronavirus (COVID-19)(PCR) NEGATIVE 12/23/19 11:59: Bedside Glucose (Misc Panel) 81 12/23/19 15:19: Bedside Glucose (Misc Panel) 112H 12/23/19 17:17: Bedside Glucose (Misc Panel) 95 CBC/BMP Laboratory Tests 12/23/19 05:41 Microbiology Microbiology 12/23/19 Gram Stain, Received Pending 12/23/19 Wound Culture, Received Pending 12/23/19 Anaerobic Culture, Received Pending 12/23/19 Wound Culture, Received Pending 12/22/19 Blood Culture, Received Pending 12/22/19 Blood Culture - Preliminary, Resulted NARCISA SMITH DO Dec 23, 2019 19:13
[2019-12-23] MEDS: TAMSULOSIN 0.4 MG CAP PO SCH (21:32)
[2019-12-24] VITALS (8 sets, daily range): BP systolic 117–131; BP diastolic 73–87; O2SAT 94–97
[2019-12-24] MEDS ORDERED: MAGNESIUM SULFATE 1GM/100ML D5W BAG (10MG/ML) As Ordered ONE ×2 (00:12→01:19)
[2019-12-24] MEDS: MAG SULF 1GM/100ML (MAG RUN) 1 GM in IV 1 EA IV SCH ×2 (00:16→01:21)
[2019-12-24] MEDS: NS 1,000 ML IV SCH ×2 (01:38→12:15)
[2019-12-24] MEDS: VANCOMYCIN HCL 1,000 MG, VIAL MATE ADAPTER 1 EACH in D5W 250 ML IV SCH (04:52)
[2019-12-24] MEDS: CEFEPIME HCL 2 GM in D5W 50 ML IV SCH ×2 (06:00→17:44)
[2019-12-24 06:13] LABS: HEMATOCRIT 36.9 % (42.0-52.0); HEMOGLOBIN 12.1 g/dl (13.5-17.5); MEAN CORPUSCULAR HEMOGLOBIN 28.1 pg (27.0-33.0); MEAN CORPUSCULAR HGB CONC 32.8 g/dl (32.0-36.5); MEAN CORPUSCULAR VOLUME 85.8 fl (80.0-96.0); PLATELET COUNT, AUTOMATED 249 10^3/uL (150-450); WHITE BLOOD COUNT 17.2 10^3/uL (4.0-10.0)
[2019-12-24 06:41] LABS: BLOOD UREA NITROGEN 26 MG/DL (7-18); CALCIUM LEVEL 8.3 MG/DL (8.5-10.1); CARBON DIOXIDE LEVEL 29 MEQ/L (21-32); CHLORIDE LEVEL 97 MEQ/L (98-107); CREATININE FOR GFR 0.98 MG/DL (0.70-1.30); GLOMERULAR FILTRATION RATE > 60.0 (>56); GLUCOSE, FASTING 219 MG/DL (70-100); POTASSIUM SERUM 3.8 MEQ/L (3.5-5.1); SODIUM LEVEL 133 MEQ/L (136-145)
[2019-12-24] MEDS: PERCOCET 5MG/325MG TAB PO PRN ×2 (06:53→17:44)
--- NOTE | 2019-12-24 09:19 | REPVR ---
PROCEDURE INFORMATION: Exam: US Duplex Lower Extremity Arteries Or Arterial Bypass Grafts Exam date and time: 12/24/2019 8:13 AM Age: 54 years old Clinical indication: Screening exam; Diabetic foot infection; Prior surgery; Surgery date: Post-operative (0-2 days); Surgery type: RT foot surgery; Additional info: Arterial TECHNIQUE: Imaging protocol: Real-time ultrasound scan of the arteries of the bilateral lower extremities with 2-D schmitt scale, color Doppler flow and spectral waveform analysis. Images documented and saved. COMPARISON: MRI FOOT WITHOUT CONTRAST RIGHT 12/23/2019 9:54 AM FINDINGS: Right external iliac artery: 135.7 cm/sec, monophasic. Right common femoral artery: 142.8 cm/sec, monophasic. Right profunda femoris artery: Right proximal profunda femoris artery: 78.3 cm/sec, monophasic/biphasic. Right superficial femoral artery: Proximal SFA 95.2 cm/sec, monophasic. Mid SFA 74.7 cm/sec, monophasic. Distal SFA 71.5 cm/sec, monophasic. Right popliteal artery: Ppopliteal 89.6 cm/sec, monophasic. Right calf/foot arteries: Tibioperoneal trunk 113.2 cm/sec, monophasic. Proximal MIRELLA 41.9 cm/sec, monophasic. Proximal CASH MANAGEMENT ASSOCIATE 44.0 cm/sec, monophasic. Right ankle brachial index could not be obtained. Distal bandaging limits further assessment. Left external iliac artery: 121.6 cm/sec, biphasic/triphasic. Left common femoral artery: 88.6 cm/sec, biphasic/triphasic. Left profunda femoris artery: Left proximal profunda femoris artery: 60.8 cm/sec, triphasic. Left superficial femoral artery: Proximal SFA 108.8 cm/sec, triphasic. Mid SFA 113.2 cm/sec, triphasic. Distal SFA 79.8 cm/sec thick, biphasic. Left popliteal artery: Popliteal 42.1 cm/sec, biphasic. Left calf/foot arteries: Tibioperoneal trunk 70.4 cm/sec, biphasic. Proximal MIRELLA 55.7 cm/sec, biphasic. Distal MIRELLA 68.4 cm/sec, biphasic. Proximal CASH MANAGEMENT ASSOCIATE 32.5 cm/sec, biphasic. Distal CASH MANAGEMENT ASSOCIATE 76.8 cm/sec, biphasic/triphasic. The left ankle brachial index 1.33 (MIRELLA), 1.29 (DPA). IMPRESSION: 1. Monophasic waveforms throughout the right lower extremity, proximal aortoiliac disease not excluded. 2. Accelerated velocity distal left posterior tibial artery, significant stenosis not excluded. Electronically signed by: Kobe Zarate On 12/24/2019 09:19:38 AM
--- NOTE | 2019-12-24 09:27 | RO ---
DATE OF OPERATION: 12/23/2019 PREOPERATIVE DIAGNOSIS: Right foot infection and gangrene. POSTOPERATIVE DIAGNOSIS: Right foot infection and gangrene. PROCEDURE: Right foot fifth toe and metatarsal amputation incision and drainage. SURGEON: Bernardo Rousseau DPM. CITY ADMINISTRATOR: None. ANESTHESIA: Monitored anesthesia care. PREOPERATIVE INJECTION: 20 mL of a one-to-one mixture of 1% lidocaine plain and 0.5% Marcaine plain. ESTIMATED BLOOD LOSS: Minimal. MATERIALS: None. SPECIMENS: Right fifth toe and metatarsal head. COMPLICATIONS: None. CONDITION: Stable. INDICATIONS: Jose L Sanchez is a 54-year-old diabetic male who was admitted to the hospital with a right foot infection. He had x-ray and MRI findings consistent with gas gangrene with necrotic appearance to his foot, particularly the lateral aspect and fifth toe. Decision was made to bring him to the operating room for amputation, incision and drainage. The patient's side and site were identified and marked in the preoperative holding area. Consent was reviewed and obtained. All risks, complications and alternatives to the procedure were explained to the patient in detail and all questions were answered. DESCRIPTION OF PROCEDURE: The patient was brought to the operating room and placed on the operating room table in the supine position. Monitored anesthesia care was delivered by the anesthesia team. Preoperative injection of 20 mL of a one-to-one mixture of 1% lidocaine plain and 0.5% Marcaine plain were injected in the right foot. The right foot was prepped and draped in normal sterile fashion. A tourniquet was applied to the right ankle and inflated at 250 mmHg. The fifth toe was fully gangrenous in appearance. This was disarticulated at the metatarsophalangeal joint. There was significant necrotic tissue surrounding the toe extending past the metatarsal head both dorsally and plantarly with purulent drainage around the plantar wound. Cultures for aerobic and anaerobic were taken of the fluid. Necrotic tissue was debrided and so the fifth metatarsal bone was identified and this was excised along the shaft with a sagittal saw. Further necrotic tissue was debrided, particularly on the dorsal surface where a large skin flap was nonviable. This was removed with a #10 blade in excisional fashion. Once no further significant necrotic tissue was identified, the area was irrigated with normal saline through pulse lavage. Tourniquet was deflated. Hemostasis obtained with pressure. Sterile dressings and gauze were applied. The patient was brought to PACU with vital signs stable and neurovascular status intact. He will be readmitted to the floor for continued antibiotics and we will follow. MINDI
[2019-12-24] MEDS: MELOXICAM (MOBIC) 7.5 MG TAB PO SCH (09:33)
[2019-12-24] MEDS: HumaLOG INSULIN (NovoLOG) PER UNIT SC SCH ×4 (09:33→21:55)
[2019-12-24] MEDS: ASPIRIN 81 MG ENTERIC TAB PO SCH (09:33)
[2019-12-24] MEDS: ATORVASTATIN 20 MG TAB PO SCH (09:34)
[2019-12-24] MEDS: CitaloPRAM (CeleXA) 20 MG TAB PO SCH (09:34)
[2019-12-24] MEDS ORDERED: LIDOCAINE 1% MDV 20ML VIAL As Ordered ONE (10:26)
[2019-12-24] MEDS: MORPHINE 2 MG/ML 1ML VIAL (J2270) IV PRN (12:16)
--- NOTE | 2019-12-24 13:42 | CR.PDOC ---
General Date of Consultation: Dec 24, [address] Kohler REASON FOR CONSULTATION/CHIEF COMPLAINT: PAD HISTORY OF PRESENT ILLNESS: The patient is a 54-year-old male admitted 12/22/19 with right foot pain and swelling with increased redness and pain found to have gangrene of the right fifth toe status post right fifth toe and metatarsal amputation as per Dr. Rousseau 12/23/19. Vascular surgery was consulted regarding PAD. ALLERGIES: Please see below. HOME MEDICATIONS: Please see below. PAST MEDICAL HISTORY: PAST SURGICAL HISTORY: IDDM Hypertension Dyslipidemia FAMILY HISTORY: Father , colon cancer. Mother , brain cancer. SOCIAL HISTORY: Nonsmoker REVIEW OF SYSTEMS: As noted in HPI otherwise 11 point review of system unremarkable. PHYSICAL EXAMINATION: VITAL SIGNS: Please see below. GENERAL APPEARANCE: Sitting up in bed eating lunch, NAD HEENT: MMM RESPIRATORY: CTA CARDIOVASCULAR: RRR ABDOMEN: soft, NT EXTREMITIES: Right foot with surgical bandage intact. NEUROLOGICAL: Alert and oriented PSYCHIATRIC: Pleasant and cooperative Bilateral lower extremity arterial ultrasound Exam date and time: 12/24/2019 8:13 AM Age: 54 years old Clinical indication: Screening exam; Diabetic foot infection; Prior surgery; Surgery date: Post-operative (0-2 days); Surgery type: RT foot surgery; Additional info: Arterial TECHNIQUE: Imaging protocol: Real-time ultrasound scan of the arteries of the bilateral lower extremities with 2-D schmitt scale, color Doppler flow and spectral waveform analysis. Images documented and saved. COMPARISON: MRI FOOT WITHOUT CONTRAST RIGHT 12/23/2019 9:54 AM FINDINGS: Right external iliac artery: 135.7 cm/sec, monophasic. Right common femoral artery: 142.8 cm/sec, monophasic. Right profunda femoris artery: Right proximal profunda femoris artery: 78.3 cm/sec, monophasic/biphasic. Right superficial femoral artery: Proximal SFA 95.2 cm/sec, monophasic. Mid SFA 74.7 cm/sec, monophasic. Distal SFA 71.5 cm/sec, monophasic. Right popliteal artery: Ppopliteal 89.6 cm/sec, monophasic. Right calf/foot arteries: Tibioperoneal trunk 113.2 cm/sec, monophasic. Proximal MIRELLA 41.9 cm/sec, monophasic. Proximal DINING SERVER 44.0 cm/sec, monophasic. Right ankle brachial index could not be obtained. Distal bandaging limits further assessment. Left external iliac artery: 121.6 cm/sec, biphasic/triphasic. Left common femoral artery: 88.6 cm/sec, biphasic/triphasic. Left profunda femoris artery: Left proximal profunda femoris artery: 60.8 cm/sec, triphasic. Left superficial femoral artery: Proximal SFA 108.8 cm/sec, triphasic. Mid SFA 113.2 cm/sec, triphasic. Distal SFA 79.8 cm/sec thick, biphasic. Left popliteal artery: Popliteal 42.1 cm/sec, biphasic. Left calf/foot arteries: Tibioperoneal trunk 70.4 cm/sec, biphasic. Proximal MIRELLA 55.7 cm/sec, biphasic. Distal MIRELLA 68.4 cm/sec, biphasic. Proximal DINING SERVER 32.5 cm/sec, biphasic. Distal DINING SERVER 76.8 cm/sec, biphasic/triphasic. The left ankle brachial index 1.33 (MIRELLA), 1.29 (DPA). IMPRESSION: 1. Monophasic waveforms throughout the right lower extremity, proximal aortoiliac disease not excluded. 2. Accelerated velocity distal left posterior tibial artery, significant stenosis not excluded. Electronically signed by: Kobe Zarate On 12/24/2019 09:19:38 ASSESSMENT/PLAN: Atherosclerosis [place] vessels lower extremity status post right fifth toe and metatarsal amputation. Continue Wound care as per Dr. Rousseau. IV antibiotics as per hospitalist. Pain control as per hospitalist. Continue aspirin 81mg/statin. Arterial ultrasound results are reviewed by Dr. Kohler, right lower extremity with diffusely monophasic flow, suggestive of possible inflow disease. Plan is to proceed with right lower extremity arteriogram as per Dr. Kohler tentatively 12/26/19. The procedure, risks, benefits and alternatives are reviewed and discussed with the patient, all questions are answered. Informed consent is obtained and placed with the chart. Serum creatinine is noted to be 0.98, GFR greater than 60. Vital Signs/I&O Vital Signs Date Time Temp Pulse Resp B/P (MAP) Pulse Ox O2 Delivery O2 Flow Rate FiO2 12/24/19 12:26 17 12/24/19 11:10 90 94 Room Air 12/24/19 10:18 98.6 12/24/19 10:00 130/81 (97) 12/24/19 06:00 3.0 12/23/19 17:12 100 I&O- Last 24 Hours up to 6 AM 12/24/19 06:00 Intake Total 3750 ml Output Total 2055 ml Balance 1695 ml Laboratory Data Labs 24H Laboratory Tests 2 12/23/19 15:19: Bedside Glucose (Misc Panel) 112H 12/23/19 17:17: Bedside Glucose (Misc Panel) 95 12/23/19 20:27: Bedside Glucose (Misc Panel) 144H 12/24/19 05:37: Nucleated Red Blood Cells % (auto) 0.0, Anion Gap 7L, Glomerular Filtration Rate > 60.0, Calcium Level 8.3L, C-Reactive Protein, Quantitative 19.40H 12/24/19 11:33: Bedside Glucose (Misc Panel) 271H 12/24/19 11:41: Vancomycin Level Trough 24.9H CBC/BMP Laboratory Tests 12/24/19 05:37 Microbiology Microbiology 12/23/19 Gram Stain - Final, Resulted 12/23/19 Wound Culture - Preliminary, Resulted Strep Agalactiae Group B 12/23/19 Anaerobic Culture, Resulted Pending 12/23/19 Wound Culture - Preliminary, Resulted Strep Agalactiae Group B 12/22/19 Blood Culture - Preliminary, Resulted No growth after 24 hours . All specim... 12/22/19 Blood Culture - Preliminary, Resulted Allergies Coded Allergies: No Known Allergies (Unverified , 02/10/17) Home Medications Scheduled Alogliptin Benzoate (Alogliptin) 25 Mg Tab, 25 MG PO DAILY, (Reported) Aspirin (Aspirin EC) 81 Mg Tablet.dr, 1 TAB PO DAILY, (Reported) Atorvastatin Calcium (Atorvastatin Calcium) 80 Mg Tab, 80 MG PO DAILY, (Reported) Cholecalciferol (Vitamin D3) (Vitamin D3) 125 Mcg Capsule, 125 MCG PO DAILY, (Reported) Citalopram Hydrobromide (Citalopram HBr) 20 Mg Tab, 20 MG PO DAILY, (Reported) Dulaglutide (Trulicity) 1.5 Mg/0.5 Ml Pen.injctr, 1.5 MG SQ 1XWK, (Reported) TAKES ON SUNDAY Insulin Glargine,Hum.rec.anlog (Basaglar Kwikpen U-100) 100 Unit/1 Ml Insuln.pen, 100 UNITS SQ DAILY, (Reported) Lisinopril (Lisinopril) 40 Mg Tablet, 40 MG PO DAILY, (Reported) Meloxicam (Meloxicam) 15 Mg Tablet, 15 MG PO DAILY, (Reported) Metformin HCl (Metformin HCl) 1,000 Mg Tab, 1,000 MG PO BID, (Reported) Metoprolol Succinate (Metoprolol Succinate) 100 Mg Tab.er.24h, 100 MG PO DAILY, (Reported) Scheduled PRN Cyclobenzaprine HCl (Cyclobenzaprine HCl) 10 Mg Tablet, 10 MG PO TID PRN for MUSCLE SPASMS, (Reported) Tramadol HCl (Tramadol HCl) 50 Mg Tablet, 50 MG PO Q4H PRN for PAIN, (Reported) Radha Atkinson Dec 24, 2019 13:42
--- NOTE | 2019-12-24 13:42 | IPN ---
DATE: 12/24/2019 Patient is seen and examined at bedside postoperatively. He states he has some pain. Rates it about a 6/10, improved with the current pain medication. Vital signs are reviewed. Maximum temperature is 99, presently 98.6. Presently he is at 94% on room air. Labs are reviewed. White blood cell count is 17.2. CRP is 19.4. Operative cultures preliminary growing group B streptococcus. Other cultures are pending. Pathology is pending. Arterial ultrasound reviewed. Monophasic waveforms throughout the right lower extremity with accelerated velocity to the distal posterior tibial artery. Lower extremity examination: Erythema and edema are improved. The wound bed is without significant necrotic tissue or purulence. ASSESSMENT: A 54-year-old diabetic male, status post right 5th toe and ray amputation, incision and drainage due to gangrene. PLAN: Continue antibiotics. Await operative cultures results. A consult to vascular surgery as been placed for further evaluation, potentially for angiogram if indicated. Wound care orders are written. Will follow. MINDI
--- NOTE | 2019-12-24 14:03 | REP ---
PROCEDURE NAME: PICC LINE INSERTION W/SITERITE SEDATION: None CLINICAL INFORMATION: Need IV antibiotics, unable to get peripheral, double lumen PHYSICIAN: Nereyda Ellis PROCEDURE DESCRIPTION: The procedure was performed by MARIELY Medina, under the direct supervision of Dr. Benson. The risks and benefits of the procedure were explained to the patient and an informed consent was obtained both verbally and written. Directly prior to the start of the procedure a formal time-out was completed in the procedure room. The left brachial vein was localized using ultrasound guidance. The skin was prepped and draped in sterile fashion. One mL of 1% lidocaine 10 mg/mL was used as a local anesthetic. Using ultrasound guidance the left brachial vein was cannulated, and a 0.018 guidewire was inserted and advanced to the level of SVC using fluoroscopic guidance. The needle was removed and a 5.5 Thai dilator and peel-away sheath was inserted over the guidewire. A 5.5 Thai dual lumen catheter was cut to a length of 45 cm. The dilator was removed and the catheter was inserted over the guidewire with the tip ending at the level of the SVC. The peel-away sheath was removed and the catheter was flushed with heparinized saline as per hospital protocol. The catheter was affixed to the skin and a sterile dressing was applied. The patient tolerated the procedure well and there were no immediate complications. ESTIMATED BLOOD LOSS: Less than 5 mL COMPLICATIONS: None CONCLUSION: Successful PICC line insertion into the left brachial vein 0.2 minutes of fluoroscopy time was utilized for this procedure. Some fluoroscopic images are performed with last image hold technology. These images require no additional radiation. <Electronically signed by Nereyda Ellis > 12/24/19 [id number] <Electronically signed by Ford Benson > 12/24/19 [id number]
[2019-12-24] MEDS: SODIUM CHLORIDE 0.9% INJ 10 ML SYR IV SCH (17:44)
--- NOTE | 2019-12-24 20:13 | IPNPDOC ---
Subjective Date Seen The patient was seen on 12/24/19. Subjective Chief Complaint/HPI Mr. Sanchez is a 54 year old male with DM2 and HTN who presents here for right foot pain found to have right foot cellulitis with gangrene. he had Right 5th toe amputation and debridement on 12/24/2019. Today is POD#1. This morning, he feels about the same. Denies fever, chest pain, abdominal pain, or dysuria. Podiatry consulted vascular surgery for right lower extremity arteriogram which has been scheduled from 12/26/2019. Constitutional: Denies: Fever Pulmonary: Denies: Dyspnea Cardiovascular: Denies: Chest Pain Gastrointestinal: Denies: Abdominal Pain Genitourinary: Denies: Dysuria Musculoskeletal: Reports: Foot Pain (right) Objective Physical Examination General Exam: Positive: Alert, Cooperative Eye Exam: Positive: PERRLA ENT Exam: Positive: Atraumatic, Other ENT Neck Exam: Positive: Supple; Negative: JVD Chest Exam: Positive: Clear to auscultation Heart Exam: Positive: Rate Normal Telemetry: Positive: No significant arrhythmia Abdomen Exam: Positive: Normal bowel sounds Extremity Exam: Positive: Tenderness (right foot), Swelling (right foot), Other (there is small noninfected wound on the lateral plantar surface of the right foot around 1-2 cm. On the dorsal part of the right foot skin abrasion around 5- 7 cm. Right foot swollen with erythema) Skin Exam: Positive: Breakdown Neuro Exam: Positive: Normal Gait, Cranial Nerves 3-12 NL Psych Exam: Positive: Mental status NL Assessment /Plan Assessment Mr. Sanchez is a 54 year old male with DM2 here with sepsis 2/2 right foot cellulitis with with gangrene. On 12/23/2019, he had 5th toe amputation and debridement by podiatry. Podiatry consulted vascular surgery for arteriogram of the right leg which have been scheduled from 12/26/2019. Pending culture results. Plan/VTE VTE Prophylaxis Ordered?: Yes Plan 1. Sepsis secondary to right foot infection -3/4 SIRS criteria (Fever, leukocytosis, and tachycardia) -On IV fluids and antibiotics 2. Right foot cellulitis with gangrene -Seen on XR -Podiatry consulted. Recommendations appreciated. -Right 5th toe amputation and debridement on 12/23/2019 -Cultures grew strep agalactiae group B. Pending final culture results -Discontinued vancomycin. Continue on Cefepime for the time being. -Vascular surgery consulted for arteriogram. Scheduled for 12/26/2019 3. DM -Carb consistent diet -Restarting sliding scale insulin -Restarting Levemir today 4. HTN -Continue Lisinopril and Toprol XL 5. Dyslipidemia -Continue statin 6. Anxiety/Depression -continue citalopram 7. DVT ppx -Just had right foot surgery. Compression stocking on left foot. Will need to touch base with podiatry when to start chemical prophylaxis. Dispo: Pending arteriogram on 12/26/2019 and final culture results VS, I&O, 24H, Fishbone Vital Signs/I&O Vital Signs Date Time Temp Pulse Resp B/P (MAP) Pulse Ox O2 Delivery O2 Flow Rate FiO2 12/24/19 18:14 15 12/24/19 14:00 97.8 90 121/78 (92) 89 Room Air 12/24/19 06:00 3.0 12/23/19 17:12 100 I&O- Last 24 Hours up to 6 AM 12/24/19 06:00 Intake Total 3750 ml Output Total 2055 ml Balance 1695 ml Laboratory Data 24H LABS Laboratory Tests 2 12/23/19 20:27: Bedside Glucose (Misc Panel) 144H 12/24/19 05:37: Nucleated Red Blood Cells % (auto) 0.0, Anion Gap 7L, Glomerular Filtration Rate > 60.0, Calcium Level 8.3L, C-Reactive Protein, Quantitative 19.40H 12/24/19 11:33: Bedside Glucose (Misc Panel) 271H 12/24/19 11:41: Vancomycin Level Trough 24.9H 12/24/19 16:31: Bedside Glucose (Misc Panel) 315H CBC/BMP Laboratory Tests 12/24/19 05:37 Microbiology Microbiology 12/23/19 Gram Stain - Final, Resulted 12/23/19 Wound Culture - Preliminary, Resulted Strep Agalactiae Group B 12/23/19 Anaerobic Culture, Resulted Pending 12/23/19 Wound Culture - Preliminary, Resulted Strep Agalactiae Group B 12/22/19 Blood Culture - Preliminary, Resulted No Growth after 48 hours. All Specime... 12/22/19 Blood Culture - Preliminary, Resulted NARCISA SMITH DO Dec 24, 2019 20:13
[2019-12-24] MEDS: LEVEMIR (INSULIN DETEMIR) 1 UNITS/0.01ML SC SCH (21:56)
[2019-12-24] MEDS: TAMSULOSIN 0.4 MG CAP PO SCH (21:56)
[2019-12-25 06:00] VITALS: BP 132/87
[2019-12-25] MEDS: SODIUM CHLORIDE 0.9% INJ 10 ML SYR IV SCH ×2 (06:04→18:34)
[2019-12-25] MEDS: CEFEPIME HCL 2 GM in D5W 50 ML IV SCH ×2 (06:04→18:34)
[2019-12-25 06:11] LABS: MEAN CORPUSCULAR HEMOGLOBIN 27.5 pg (27.0-33.0); MEAN CORPUSCULAR HGB CONC 32.4 g/dl (32.0-36.5); PLATELET COUNT, AUTOMATED 253 10^3/uL (150-450); WHITE BLOOD COUNT 14.5 10^3/uL (4.0-10.0)
[2019-12-25 06:56] LABS: BLOOD UREA NITROGEN 20 MG/DL (7-18); CALCIUM LEVEL 7.8 MG/DL (8.5-10.1); CARBON DIOXIDE LEVEL 28 MEQ/L (21-32); CHLORIDE LEVEL 100 MEQ/L (98-107); CREATININE FOR GFR 0.92 MG/DL (0.70-1.30); GLOMERULAR FILTRATION RATE > 60.0 (>56); GLUCOSE, FASTING 248 MG/DL (70-100); POTASSIUM SERUM 4.1 MEQ/L (3.5-5.1); SODIUM LEVEL 135 MEQ/L (136-145)
[2019-12-25] MEDS: SODIUM CHLORIDE 0.9% INJ 10 ML SYR IV PRN (07:27)
[2019-12-25] MEDS ORDERED: MIRALAX *UNIT DOSE* 17GM PACKET PO PRN (07:30)
[2019-12-25] MEDS: LEVEMIR (INSULIN DETEMIR) 1 UNITS/0.01ML SC SCH ×2 (08:37→21:23)
[2019-12-25] MEDS: HumaLOG INSULIN (NovoLOG) PER UNIT SC SCH ×4 (08:37→21:23)
[2019-12-25] MEDS: DOCUSATE SODIUM 100 MG CAP PO SCH ×2 (08:37→21:23)
[2019-12-25] MEDS: ASPIRIN 81 MG ENTERIC TAB PO SCH (08:38)
[2019-12-25] MEDS: MELOXICAM (MOBIC) 7.5 MG TAB PO SCH (08:38)
[2019-12-25] MEDS: ATORVASTATIN 20 MG TAB PO SCH (08:38)
[2019-12-25] MEDS: CitaloPRAM (CeleXA) 20 MG TAB PO SCH (08:38)
[2019-12-25] MEDS: PERCOCET 5MG/325MG TAB PO PRN ×2 (12:54→21:24)
[2019-12-25 14:00] VITALS: BP 139/87
[2019-12-25 14:15] VITALS: BP 134/83
--- NOTE | 2019-12-25 15:12 | IPN ---
DATE: 12/25/2019 Patient seen and examined. He denies overnight complaints. Vital signs are reviewed. He has remained afebrile. Labs are reviewed. White cell count is improved to 14.5. CRP is 15.9. Final cultures are group B streptococcus. Lower extremity examination: There remains erythema and edema to the right foot. No further significant purulence or necrotic or malodor is noted from the wound. 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 PLAN: He is scheduled for angiogram tomorrow with Dr. Kohler. For the time being will continue local wound care. He may require further incision and drainage. Will re-evaluate this weekend. If he is doing well, we will plan for consultation with Dr. Massey for telehealth wound care evaluation. Ultimately he will be following up with Dr. Massey for this wound. [facility]
[2019-12-25 20:08] VITALS: BP 141/71
[2019-12-25 21:00] VITALS: O2SAT 98
--- NOTE | 2019-12-25 21:02 | IPNPDOC ---
Subjective Date Seen The patient was seen on 12/25/19. Subjective Chief Complaint/HPI Mr. Sanchez is a 54 year old male with DM2 and HTN who presents here for right foot pain found to have right foot cellulitis with gangrene. He had Right 5th toe amputation and debridement on 12/24/2019. Today is POD#2. No events overnight, denies fever, chest pain, abdominal pain, or dysuria. Plan for angiogram tomorrow with vascular surgery Constitutional: Denies: Fever Pulmonary: Denies: Dyspnea Cardiovascular: Denies: Chest Pain Gastrointestinal: Denies: Abdominal Pain Genitourinary: Denies: Dysuria Objective Physical Examination General Exam: Positive: Alert, Cooperative Eye Exam: Positive: PERRLA ENT Exam: Positive: Atraumatic, Other ENT Neck Exam: Positive: Supple; Negative: JVD Chest Exam: Positive: Clear to auscultation Heart Exam: Positive: Rate Normal Telemetry: Positive: No significant arrhythmia Abdomen Exam: Positive: Normal bowel sounds Extremity Exam: Positive: Tenderness (right foot), Swelling (right foot), Other (there is small noninfected wound on the lateral plantar surface of the right foot around 1-2 cm. On the dorsal part of the right foot skin abrasion around 5- 7 cm. Right foot swollen with erythema) Skin Exam: Positive: Breakdown Neuro Exam: Positive: Normal Gait, Cranial Nerves 3-12 NL Psych Exam: Positive: Mental status NL Assessment /Plan Assessment Mr. Sanchez is a 54 year old male with DM2 here with sepsis 2/2 right foot cellulitis with with gangrene. On 12/23/2019, he had 5th toe amputation and debridement by podiatry. Podiatry consulted vascular surgery for arteriogram of the right leg which have been scheduled from 12/26/2019. Cultures grew Strep Ag alactiae Group B. Plan/VTE VTE Prophylaxis Ordered?: Yes Plan 1. Sepsis secondary to right foot infection -3/4 SIRS criteria (Fever, leukocytosis, and tachycardia) -On IV fluids and antibiotics -Resolved 2. Right foot cellulitis with gangrene -Seen on XR -Podiatry consulted. Recommendations appreciated. -Right 5th toe amputation and debridement on 12/23/2019 -Cultures grew strep agalactiae group B. -Discontinued vancomycin and Cefepime. On Levaquin -Vascular surgery consulted for arteriogram. Scheduled for 12/26/2019 3. DM -Carb consistent diet -Restarting sliding scale insulin -Levemir today 4. HTN -Continue Lisinopril and Toprol XL 5. Dyslipidemia -Continue statin 6. Anxiety/Depression -continue citalopram 7. DVT ppx -Just had right foot surgery. Compression stocking on left foot Dispo: Pending arteriogram on 12/26/2019. Podiatry to re-evaluate this weekend. If improving, Podiatry plans to consult wound care, Dr. Massey VS, I&O, 24H, Lance Vital Signs/I&O Vital Signs Date Time Temp Pulse Resp B/P (MAP) Pulse Ox O2 Delivery O2 Flow Rate FiO2 12/25/19 20:08 97.9 84 18 141/71 (94) 94 Room Air 12/25/19 06:00 3.0 12/25/19 03:00 24 I&O- Last 24 Hours up to 6 AM 12/25/19 06:00 Intake Total 2784 ml Output Total 1700 ml Balance 1084 ml Laboratory Data 24H LABS Laboratory Tests 2 12/24/19 21:20: Bedside Glucose (Misc Panel) 268H 12/25/19 06:00: Nucleated Red Blood Cells % (auto) 0.0, Anion Gap 7L, Glomerular Filtration Rate > 60.0, Calcium Level 7.8L, C-Reactive Protein, Quantitative 15.90H 12/25/19 07:48: Lab Scanned Report Miscellaneous Lab 12/25/19 11:31: Bedside Glucose (Misc Panel) 289H 12/25/19 17:02: Bedside Glucose (Misc Panel) 312H 12/25/19 20:10: Bedside Glucose (Misc Panel) 334H CBC/BMP Laboratory Tests 12/25/19 06:00 Microbiology Microbiology 12/23/19 Gram Stain - Final, Complete 12/23/19 Wound Culture - Final, Complete Strep Agalactiae Group B 12/23/19 Anaerobic Culture - Final, Complete 12/23/19 Wound Culture - Final, Complete Strep Agalactiae Group B 12/22/19 Blood Culture - Preliminary, Resulted No Growth after 72 hours. All specime... 12/22/19 Blood Culture - Preliminary, Resulted NARCISA SMITH DO Dec 25, 2019 21:02
[2019-12-25] MEDS: TAMSULOSIN 0.4 MG CAP PO SCH (21:23)
[2019-12-26] MEDS: LevoFLOXacin IV 750 MG in IV 1 EA IV SCH (05:53)
[2019-12-26 06:02] VITALS: BP 145/87
[2019-12-26 06:17] LABS: HEMATOCRIT 33.5 % (42.0-52.0); MEAN CORPUSCULAR HEMOGLOBIN 28.3 pg (27.0-33.0); MEAN CORPUSCULAR HGB CONC 32.8 g/dl (32.0-36.5); MEAN CORPUSCULAR VOLUME 86.1 fl (80.0-96.0); PLATELET COUNT, AUTOMATED 261 10^3/uL (150-450); RED BLOOD COUNT 3.89 10^6/uL (4.30-6.10); WHITE BLOOD COUNT 14.4 10^3/uL (4.0-10.0)
[2019-12-26 06:44] LABS: BLOOD UREA NITROGEN 18 MG/DL (7-18); CALCIUM LEVEL 8.4 MG/DL (8.5-10.1); CARBON DIOXIDE LEVEL 29 MEQ/L (21-32); CHLORIDE LEVEL 101 MEQ/L (98-107); CREATININE FOR GFR 0.81 MG/DL (0.70-1.30); GLOMERULAR FILTRATION RATE > 60.0 (>56); GLUCOSE, FASTING 144 MG/DL (70-100); POTASSIUM SERUM 3.9 MEQ/L (3.5-5.1); SODIUM LEVEL 137 MEQ/L (136-145)
[2019-12-26] MEDS: HumaLOG INSULIN (NovoLOG) PER UNIT SC SCH ×4 (07:30→20:58)
[2019-12-26] MEDS: SODIUM CHLORIDE 0.9% INJ 10 ML SYR IV SCH ×2 (08:42→17:51)
[2019-12-26] MEDS: LEVEMIR (INSULIN DETEMIR) 1 UNITS/0.01ML SC SCH ×2 (08:42→20:57)
[2019-12-26] MEDS: ASPIRIN 81 MG ENTERIC TAB PO SCH (08:42)
[2019-12-26] MEDS: DOCUSATE SODIUM 100 MG CAP PO SCH ×2 (08:43→20:57)
[2019-12-26] MEDS: MELOXICAM (MOBIC) 7.5 MG TAB PO SCH (08:43)
[2019-12-26] MEDS: CitaloPRAM (CeleXA) 20 MG TAB PO SCH (08:43)
[2019-12-26] MEDS: ATORVASTATIN 20 MG TAB PO SCH (08:43)
[2019-12-26] MEDS ORDERED: LIDOCAINE 1% MDV 20ML VIAL As Ordered ONE (13:03)
[2019-12-26] MEDS ORDERED: ISOVUE-300 61% 50ML VIAL As Ordered ONE (13:03)
[2019-12-26] MEDS ORDERED: MIDAZOLAM INJ 2MG/2ML VIAL (J2250 PER 1MG) As Ordered ONE (13:45)
[2019-12-26] MEDS ORDERED: fentaNYL 100 MCG/2 ML INJECTION (J3010) As Ordered ONE (13:45)
--- NOTE | 2019-12-26 15:26 | ROOPDOC ---
[facility] Report Of Operation Report of Operation DATE OF PROCEDURE: 12/26/19 PREPROCEDURE DIAGNOSES: Atherosclerosis in the [place] arteries with nonhealing ulceration other part right foot POSTPROCEDURE DIAGNOSES: Nonhealing ulceration other part right foot PROCEDURE: 1. Ultrasound-guided access left common femoral artery 2. Aortoiliofemoral arteriogram 3. Selection right superficial femoral artery and right lower extremity runoff 4. Mynx closure left common femoral artery SURGEON: Nichole Kohler MD ANESTHESIA: Local anesthesia 9 mL lidocaine. Moderate intravenous conscious sedation with supervised by Dr. Kohlre. The patient was independently monitored by registered nurse assigned at the Department of radiology using automated blood pressure, EKG, and pulse oximetry. The detailed sedation records presently stored in the hospital information system. The following is a brief sedation record: Start time 14:09, stop time 14:34, Versed 1 mg IV, fentanyl 25 g IV. CONTRAST: 20 mL Isovue-300 INDICATION FOR PROCEDURE: This a very pleasant 54-year-old gentleman with a diabetic foot ulcer status post surgical intervention with Dr. Rousseau earlier this week, and an arterial duplex was performed but suggested the patient has a mild to moderate arterial disease which could be contributing to poor wound healing. Over the last day, the wound edges were looking a little bit dusky and there was concern for worsening ischemia, although the changes could also be due to ongoing infection or pressure. Sometimes in diabetics we find that the tibial disease is more pronounced than is indicated by the arterial duplex, and with a chance for limb loss, we like to be fairly certain that all flow-limiting stenoses are addressed if possible with endovascular and/or open revascularization. Risks benefits and alternatives to an arteriogram and potential intervention were explained to the patient he was agreeable to proceed. Informed consent was obtained. INTERPRETATION: 1. The distal aorta, common iliac arteries, hypogastric's, external iliac arteries are all widely patent. 2. The right common femoral arteries widely patent with excellent flow into widely patent profunda and superficial femoral artery which front-office without stenosis through the popliteal artery and then there is 3 vessel runoff to the foot. The peroneal artery is diminutive but is patent all the way to the ankle. The anterior tibial posterior tibial arteries are patent all the way with good pedal circulation around the entire foot. The flow to the foot is rapid. REPORT OF OPERATION: Patient was brought to the angiographic suite in stable condition. His bilateral groins were prepped and draped in a sterile fashion. A timeout was performed. Sedation was administered without complication. Local anesthesia was administered to the skin and subcutaneous tissue over the left common femoral artery. A microneedle was used to access the artery under ultrasound guidance. A wire was passed through this access the needle was removed. A 4 Fijian sheath was placed and flushed with saline. A Glidewire and flushing catheter were advanced in the distal aorta. Aortoiliofemoral arthrograms were performed. Please see interpretation above. We went up and over the bifurcation with a Glidewire in the catheter and selected the right superficial femoral artery. Runoff of the right lower extremity was performed. Please see interpretation above. We change the sheath over the wire for a 5 [place]ian sheath and flushed the sheath with saline. Mynx closure device was deployed with good hemostasis. Pressure was held for 5 minutes and sterile dressings were applied. The patient was taken to recovery in stable condition. ESTIMATED BLOOD LOSS: Approximately 5 mL. COMPLICATIONS: None. PLAN: Okay to resume diet and medications and orders per primary team. The patient will be on bedrest until 7:30 PM tonight, and then light activity as tolerated the next 2 days. Based on findings in the arteriogram today, he should have more than adequate blood flow to heal his right foot, but will also need the other tenants of wound healing, including tight glucose control, high- protein diet, offloading, careful wound care and debridement if necessary, treatment of infection if present, and ongoing monitoring by our podiatry colleagues. No further vascular intervention required at this time. We appreciate the opportunity to participate in the care of this patient. NICHOLE KOHLER MD Dec 26, 2019 15:26
[2019-12-26 16:21] VITALS: BP 143/93
[2019-12-26 17:36] VITALS: BP 143/91
[2019-12-26] MEDS: PERCOCET 5MG/325MG TAB PO PRN (17:51)
[2019-12-26 18:29] VITALS: BP 143/90
--- NOTE | 2019-12-26 19:06 | IPNPDOC ---
Subjective Date Seen The patient was seen on 12/26/19. Subjective Chief Complaint/HPI Mr. Sanchez is a 54 year old male with DM2 and HTN who presents here for right foot pain found to have right foot cellulitis with gangrene. He had Right 5th toe amputation and debridement on 12/24/2019. Today is POD#3. No events overnight, denies fever, chest pain, abdominal pain, or dysuria. Plan for angiogram today with vascular surgery. Constitutional: Denies: Fever Cardiovascular: Denies: Chest Pain Gastrointestinal: Denies: Abdominal Pain Genitourinary: Denies: Dysuria Objective Physical Examination General Exam: Positive: Alert, Cooperative Eye Exam: Positive: PERRLA ENT Exam: Positive: Atraumatic, Other ENT Neck Exam: Positive: Supple; Negative: JVD Chest Exam: Positive: Clear to auscultation Heart Exam: Positive: Rate Normal Telemetry: Positive: No significant arrhythmia Abdomen Exam: Positive: Normal bowel sounds Extremity Exam: Positive: Tenderness (right foot), Swelling (right foot), Other (there is small noninfected wound on the lateral plantar surface of the right foot around 1-2 cm. On the dorsal part of the right foot skin abrasion around 5- 7 cm. Right foot swollen with erythema) Skin Exam: Positive: Breakdown Neuro Exam: Positive: Normal Gait, Cranial Nerves 3-12 NL Psych Exam: Positive: Mental status NL Assessment /Plan Assessment Mr. Sanchez is a 54 year old male with DM2 here with sepsis 2/2 right foot cellulitis with with gangrene. On 12/23/2019, he had 5th toe amputation and debridement by podiatry. Podiatry consulted vascular surgery for arteriogram of the right leg which have been scheduled from 12/26/2019. Cultures grew Strep Agalactiae Group B. Podiatry to re-evaluate foot over the weekend. Plan/VTE VTE Prophylaxis Ordered?: Yes Plan 1. Sepsis secondary to right foot infection -3/4 SIRS criteria (Fever, leukocytosis, and tachycardia) -On IV fluids and antibiotics -Resolved 2. Right foot cellulitis with gangrene -Seen on XR -Podiatry consulted. Recommendations appreciated. -Right 5th toe amputation and debridement on 12/23/2019 -Cultures grew strep agalactiae group B. -Discontinued vancomycin and Cefepime. On Levaquin -Vascular surgery consulted for arteriogram. Scheduled for 12/26/2019 3. DM -Carb consistent diet -Restarting sliding scale insulin -Levemir today 4. HTN -Continue Lisinopril and Toprol XL 5. Dyslipidemia -Continue statin 6. Anxiety/Depression -continue citalopram 7. DVT ppx -Just had right foot surgery. Compression stocking on left foot Dispo: Pending arteriogram on 12/26/2019. Podiatry to re-evaluate this weekend. If improving, Podiatry plans to consult wound care, Dr. Massey VS, I&O, 24H, Lance Vital Signs/I&O Vital Signs Date Time Temp Pulse Resp B/P (MAP) Pulse Ox O2 Delivery O2 Flow Rate FiO2 12/26/19 18:29 99.0 93 20 143/90 (107) 94 Room Air 12/26/19 14:35 2 12/25/19 03:00 24 I&O- Last 24 Hours up to 6 AM 12/26/19 06:00 Intake Total 1275 ml Output Total 2745 ml Balance -1470 ml Laboratory Data 24H LABS Laboratory Tests 2 12/25/19 20:10: Bedside Glucose (Misc Panel) 334H 12/26/19 05:28: Nucleated Red Blood Cells % (auto) 0.1H, Anion Gap 7L, Glomerular Filtration Rate > 60.0, Calcium Level 8.4L, C-Reactive Protein, Quantitative 13.30H 12/26/19 11:46: Bedside Glucose (Misc Panel) 144H 12/26/19 16:47: Bedside Glucose (Misc Panel) 101 CBC/BMP Laboratory Tests 12/26/19 05:28 Microbiology Microbiology 12/23/19 Gram Stain - Final, Complete 12/23/19 Wound Culture - Final, Complete Strep Agalactiae Group B 12/23/19 Anaerobic Culture - Final, Complete 12/23/19 Wound Culture - Final, Complete Strep Agalactiae Group B 12/22/19 Blood Culture - Preliminary, Resulted No Growth after 72 hours. All specime... 12/22/19 Blood Culture - Final, Complete Staphylococcus Hominis Ssp Gladis NARCISA SMITH DO Dec 26, 2019 19:05
[2019-12-26 19:55] VITALS: BP 141/89
[2019-12-26] MEDS: TAMSULOSIN 0.4 MG CAP PO SCH (20:58)
[2019-12-26 21:00] VITALS: O2SAT 92
[2019-12-27 04:00] VITALS: BP 139/87
[2019-12-27] MEDS: LevoFLOXacin IV 750 MG in IV 1 EA IV SCH (05:58)
[2019-12-27] MEDS: SODIUM CHLORIDE 0.9% INJ 10 ML SYR IV SCH ×2 (06:10→17:58)
[2019-12-27 06:30] LABS: HEMATOCRIT 33.4 % (42.0-52.0); HEMOGLOBIN 10.8 g/dl (13.5-17.5); MEAN CORPUSCULAR HEMOGLOBIN 27.9 pg (27.0-33.0); MEAN CORPUSCULAR HGB CONC 32.3 g/dl (32.0-36.5); MEAN CORPUSCULAR VOLUME 86.3 fl (80.0-96.0); PLATELET COUNT, AUTOMATED 276 10^3/uL (150-450); RED BLOOD COUNT 3.87 10^6/uL (4.30-6.10); WHITE BLOOD COUNT 11.3 10^3/uL (4.0-10.0)
[2019-12-27 06:49] LABS: BLOOD UREA NITROGEN 16 MG/DL (7-18); CALCIUM LEVEL 8.7 MG/DL (8.5-10.1); CARBON DIOXIDE LEVEL 32 MEQ/L (21-32); CHLORIDE LEVEL 101 MEQ/L (98-107); GLOMERULAR FILTRATION RATE > 60.0 (>56); GLUCOSE, FASTING 254 MG/DL (70-100); POTASSIUM SERUM 3.9 MEQ/L (3.5-5.1); SODIUM LEVEL 135 MEQ/L (136-145)
[2019-12-27] MEDS: DOCUSATE SODIUM 100 MG CAP PO SCH ×2 (08:07→21:24)
[2019-12-27] MEDS: CitaloPRAM (CeleXA) 20 MG TAB PO SCH (08:07)
[2019-12-27] MEDS: MELOXICAM (MOBIC) 7.5 MG TAB PO SCH (08:07)
[2019-12-27] MEDS: ATORVASTATIN 20 MG TAB PO SCH (08:07)
[2019-12-27] MEDS: ASPIRIN 81 MG ENTERIC TAB PO SCH (08:07)
[2019-12-27] MEDS: HumaLOG INSULIN (NovoLOG) PER UNIT SC SCH ×4 (08:07→21:00)
[2019-12-27] MEDS: LEVEMIR (INSULIN DETEMIR) 1 UNITS/0.01ML SC SCH ×2 (08:08→21:24)
[2019-12-27 09:00] VITALS: O2SAT 94
[2019-12-27] MEDS: PERCOCET 5MG/325MG TAB PO PRN ×3 (13:24→21:25)
[2019-12-27 14:20] VITALS: BP 140/87
--- NOTE | 2019-12-27 14:46 | IPNPDOC ---
Date Seen The patient was seen on 12/27/19. Progress Note Patient seen and examined status post arteriogram right lower extremity yesterday. No hematoma left groin. Right lower extremity warm well perfused. No intervention needed due to widely patent blood flow from aorta to toes. Continue with wound care, and current high-protein diet, encourage offloading left foot, and the patient has more than adequate blood flow for any further surgical intervention or debridements per podiatry. Follow-up with vascular on an as- needed basis. We appreciate the opportunity to participate in the care of this patient. VS, I&O, 24H, Fishbone Vital Signs/I&O Vital Signs Date Time Temp Pulse Resp B/P (MAP) Pulse Ox O2 Delivery O2 Flow Rate FiO2 12/27/19 14:01 17 12/27/19 09:00 94 Room Air 12/27/19 04:00 98.3 81 139/87 (104) 12/27/19 03:00 3.0 24 I&O- Last 24 Hours up to 6 AM 12/27/19 05:59 Intake Total 970 ml Output Total 1545 ml Balance -575 ml Laboratory Data 24H LABS Laboratory Tests 2 12/26/19 16:47: Bedside Glucose (Misc Panel) 101 12/26/19 19:58: Bedside Glucose (Misc Panel) 125H 12/27/19 06:13: Nucleated Red Blood Cells % (auto) 0.0, Anion Gap 2L, Glomerular Filtration Rate > 60.0, Calcium Level 8.7, C-Reactive Protein, Quantitative 11.20H 12/27/19 11:47: Bedside Glucose (Misc Panel) 216H CBC/BMP Laboratory Tests 12/27/19 06:13 Microbiology Microbiology 12/23/19 Gram Stain - Final, Complete 12/23/19 Wound Culture - Final, Complete Strep Agalactiae Group B 12/23/19 Anaerobic Culture - Final, Complete 12/23/19 Wound Culture - Final, Complete Strep Agalactiae Group B 12/22/19 Blood Culture - Preliminary, Resulted No Growth after 72 hours. All specime... 12/22/19 Blood Culture - Final, Complete Staphylococcus Hominis Ssp Gladis NICHOLE HUMPHREY MD Dec 27, 2019 14:46
--- NOTE | 2019-12-27 19:47 | IPNPDOC ---
Subjective Date Seen The patient was seen on 12/27/19. Subjective Chief Complaint/HPI Mr. Sanchez is a 54 year old male with DM2 and HTN who presents here for right foot pain found to have right foot cellulitis with gangrene. He had Right 5th toe amputation and debridement on 12/24/2019. Today is POD#4. No events overnight, denies fever, chest pain, abdominal pain, or dysuria. Constitutional: Denies: Fever Cardiovascular: Denies: Chest Pain Gastrointestinal: Denies: Abdominal Pain Genitourinary: Denies: Dysuria Objective Physical Examination General Exam: Positive: Alert, Cooperative Eye Exam: Positive: PERRLA ENT Exam: Positive: Atraumatic, Other ENT Neck Exam: Positive: Supple; Negative: JVD Chest Exam: Positive: Clear to auscultation Heart Exam: Positive: Rate Normal Telemetry: Positive: No significant arrhythmia Abdomen Exam: Positive: Normal bowel sounds Extremity Exam: Positive: Tenderness (right foot), Swelling (right foot), Other (there is small noninfected wound on the lateral plantar surface of the right foot around 1-2 cm. On the dorsal part of the right foot skin abrasion around 5- 7 cm. Right foot swollen with erythema) Skin Exam: Positive: Breakdown Neuro Exam: Positive: Normal Gait, Cranial Nerves 3-12 NL Psych Exam: Positive: Mental status NL Assessment /Plan Assessment Mr. Sanchez is a 54 year old male with DM2 here with sepsis 2/2 right foot cellulitis with with gangrene. On 12/23/2019, he had 5th toe amputation and debridement by podiatry. Podiatry consulted vascular surgery for arteriogram of the right leg which have been scheduled from 12/26/2019. Cultures grew Strep A galactiae Group B. Podiatry to re-evaluate foot over the weekend. Plan/VTE VTE Prophylaxis Ordered?: Yes Plan 1. Sepsis secondary to right foot infection -3/4 SIRS criteria (Fever, leukocytosis, and tachycardia) -On IV fluids and antibiotics -Resolved 2. Right foot cellulitis with gangrene -Seen on XR -Podiatry consulted. Recommendations appreciated. -Right 5th toe amputation and debridement on 12/23/2019 -Cultures grew strep agalactiae group B. -Discontinued vancomycin and Cefepime. On Levaquin -Vascular surgery consulted for arteriogram. Scheduled for 12/26/2019 3. DM -Carb consistent diet -Restarting sliding scale insulin -Continue Levemir 4. HTN -Continue Lisinopril and Toprol XL 5. Dyslipidemia -Continue statin 6. Anxiety/Depression -continue citalopram 7. DVT ppx -Just had right foot surgery. Compression stocking on left foot VS, I&O, 24H, Fishbone Vital Signs/I&O Vital Signs Date Time Temp Pulse Resp B/P (MAP) Pulse Ox O2 Delivery O2 Flow Rate FiO2 12/27/19 18:27 17 12/27/19 14:20 98.5 86 140/87 (104) 94 Room Air 12/27/19 03:00 3.0 24 I&O- Last 24 Hours up to 6 AM 12/27/19 06:00 Intake Total 1090 ml Output Total 1025 ml Balance 65 ml Laboratory Data 24H LABS Laboratory Tests 2 12/26/19 19:58: Bedside Glucose (Misc Panel) 125H 12/27/19 06:13: Nucleated Red Blood Cells % (auto) 0.0, Anion Gap 2L, Glomerular Filtration Rate > 60.0, Calcium Level 8.7, C-Reactive Protein, Quantitative 11.20H 12/27/19 11:47: Bedside Glucose (Misc Panel) 216H 12/27/19 17:26: Bedside Glucose (Misc Panel) 181H CBC/BMP Laboratory Tests 12/27/19 06:13 Microbiology Microbiology 12/23/19 Gram Stain - Final, Complete 12/23/19 Wound Culture - Final, Complete Strep Agalactiae Group B 12/23/19 Anaerobic Culture - Final, Complete 12/23/19 Wound Culture - Final, Complete Strep Agalactiae Group B 12/22/19 Blood Culture - Final, Complete NO GROWTH AFTER 5 DAYS 12/22/19 Blood Culture - Final, Complete Staphylococcus Hominis Ssp Gladis NARCISA SMITH DO Dec 27, 2019 19:47
[2019-12-27] MEDS: TAMSULOSIN 0.4 MG CAP PO SCH (21:24)
[2019-12-27 22:00] VITALS: BP 135/86
[2019-12-27 22:19] VITALS: O2SAT 93
[2019-12-28] VITALS (10 sets, daily range): BP systolic 91–174; BP diastolic 62–95; O2SAT 93–96
[2019-12-28] MEDS: LevoFLOXacin IV 750 MG in IV 1 EA IV SCH (05:15)
[2019-12-28 05:44] LABS: HEMATOCRIT 33.8 % (42.0-52.0); HEMOGLOBIN 10.5 g/dl (13.5-17.5); MEAN CORPUSCULAR HEMOGLOBIN 27.1 pg (27.0-33.0); MEAN CORPUSCULAR HGB CONC 31.1 g/dl (32.0-36.5); MEAN CORPUSCULAR VOLUME 87.3 fl (80.0-96.0); PLATELET COUNT, AUTOMATED 266 10^3/uL (150-450); RED BLOOD COUNT 3.87 10^6/uL (4.30-6.10); WHITE BLOOD COUNT 9.9 10^3/uL (4.0-10.0)
[2019-12-28 06:18] LABS: BLOOD UREA NITROGEN 18 MG/DL (7-18); C REACTIVE PROTEIN QUANTITATIV 6.49 MG/DL (0.00-0.30); CALCIUM LEVEL 8.6 MG/DL (8.5-10.1); CARBON DIOXIDE LEVEL 34 MEQ/L (21-32); CHLORIDE LEVEL 101 MEQ/L (98-107); CREATININE FOR GFR 0.92 MG/DL (0.70-1.30); GLOMERULAR FILTRATION RATE > 60.0 (>56); GLUCOSE, FASTING 201 MG/DL (70-100); POTASSIUM SERUM 3.9 MEQ/L (3.5-5.1); SODIUM LEVEL 138 MEQ/L (136-145)
[2019-12-28] MEDS: SODIUM CHLORIDE 0.9% INJ 10 ML SYR IV SCH ×2 (06:54→16:56)
[2019-12-28] MEDS: HumaLOG INSULIN (NovoLOG) PER UNIT SC SCH ×4 (08:30→21:00)
[2019-12-28] MEDS: DOCUSATE SODIUM 100 MG CAP PO SCH ×2 (08:30→21:20)
[2019-12-28] MEDS: ATORVASTATIN 20 MG TAB PO SCH (08:30)
[2019-12-28] MEDS: LEVEMIR (INSULIN DETEMIR) 1 UNITS/0.01ML SC SCH ×2 (08:30→21:21)
[2019-12-28] MEDS: MELOXICAM (MOBIC) 7.5 MG TAB PO SCH (08:30)
[2019-12-28] MEDS: ASPIRIN 81 MG ENTERIC TAB PO SCH (08:30)
[2019-12-28] MEDS: PERCOCET 5MG/325MG TAB PO PRN (08:31)
[2019-12-28] MEDS: CitaloPRAM (CeleXA) 20 MG TAB PO SCH (08:31)
[2019-12-28] MEDS ORDERED: BUPIVACAINE HCL 0.5% 10ML VIAL As Ordered ONE (12:12)
[2019-12-28] MEDS ORDERED: LIDOCAINE 1% MDV 20ML VIAL As Ordered ONE (12:12)
[2019-12-28] MEDS ORDERED: propofoL 200 MG/20 ML VIAL As Ordered ONE (13:07)
[2019-12-28] MEDS ORDERED: MIDAZOLAM INJ 2MG/2ML VIAL (J2250 PER 1MG) As Ordered ONE (13:07)
[2019-12-28] MEDS ORDERED: ONDANSETRON 4MG/2ML VIAL As Ordered ONE (13:07)
[2019-12-28] MEDS ORDERED: fentaNYL 100 MCG/2 ML INJECTION (J3010) As Ordered ONE (13:07)
[2019-12-28] MEDS ORDERED: LIDOCAINE 2% 100MG/5ML SDV (FOR ANES.) As Ordered ONE (13:07)
[2019-12-28] MEDS ORDERED: oxyCODONE 5MG TAB As Ordered ONE (13:33)
[2019-12-28] MEDS ORDERED: LR 1,000 ML IV SCH (13:45)
[2019-12-28] MEDS ORDERED: oxyCODONE 5MG TAB PO PRN (13:45)
[2019-12-28] MEDS ORDERED: ONDANSETRON 4MG/2ML VIAL IV PRN (13:45)
[2019-12-28] MEDS ORDERED: NS 500 ML IV ONE (17:00)
[2019-12-28 17:11] LABS: HEMATOCRIT 34.7 % (42.0-52.0); MEAN CORPUSCULAR HEMOGLOBIN 28.1 pg (27.0-33.0); MEAN CORPUSCULAR HGB CONC 31.7 g/dl (32.0-36.5); MEAN CORPUSCULAR VOLUME 88.5 fl (80.0-96.0); PLATELET COUNT, AUTOMATED 265 10^3/uL (150-450); RED BLOOD COUNT 3.92 10^6/uL (4.30-6.10); WHITE BLOOD COUNT 11.6 10^3/uL (4.0-10.0)
[2019-12-28] MEDS: NS 1,000 ML IV SCH (17:43)
--- NOTE | 2019-12-28 19:35 | IPNPDOC ---
Subjective Date Seen The patient was seen on 12/28/19. Subjective Chief Complaint/HPI Mr. Sanchez is a 54 year old male with DM2 and HTN who presents here for right foot pain found to have right foot cellulitis with gangrene. He had Right 5th toe amputation and debridement on 12/24/2019 and second debridement on 12/28/2019. He was seen in the afternoon, denies any fever, chest pain, abdominal pain, or dysuria. Constitutional: Denies: Fever Cardiovascular: Denies: Chest Pain Gastrointestinal: Denies: Abdominal Pain Genitourinary: Denies: Dysuria Objective Physical Examination General Exam: Positive: Alert, Cooperative Eye Exam: Positive: PERRLA ENT Exam: Positive: Atraumatic, Other ENT Neck Exam: Positive: Supple; Negative: JVD Chest Exam: Positive: Clear to auscultation Heart Exam: Positive: Rate Normal Telemetry: Positive: No significant arrhythmia Abdomen Exam: Positive: Normal bowel sounds Extremity Exam: Positive: Tenderness (right foot), Swelling (right foot), Other (there is small noninfected wound on the lateral plantar surface of the right foot around 1-2 cm. On the dorsal part of the right foot skin abrasion around 5- 7 cm. Right foot swollen with erythema) Skin Exam: Positive: Breakdown Neuro Exam: Positive: Normal Gait, Cranial Nerves 3-12 NL Psych Exam: Positive: Mental status NL Assessment /Plan Assessment Mr. Sanchez is a 54 year old male with DM2 here with sepsis 2/2 right foot cellulitis with with gangrene. On 12/23/2019, he had 5th toe amputation and debridement by podiatry. Podiatry consulted vascular surgery for arteriogram of the right leg which was done on 12/26/2019. Adequate blood flow for more surgical intervention or debridements. Second debridement on 12/28/2019. Cultures grew Strep Agalactiae Group B. Plan/VTE VTE Prophylaxis Ordered?: Yes Plan 1. Sepsis secondary to right foot infection -3/4 SIRS criteria (Fever, leukocytosis, and tachycardia) -On IV fluids and antibiotics -Resolved 2. Right foot cellulitis with gangrene -Seen on XR -Podiatry consulted. Recommendations appreciated. -Right 5th toe amputation and debridement on 12/23/2019 -Cultures grew strep agalactiae group B. -Discontinued vancomycin and Cefepime. On Levaquin -Vascular surgery consulted for arteriogram which was done on 12/26/2019. Adequate blood flow for more debridement/surgery -Podiatry further debrided on 12/28/2019 3. DM -Carb consistent diet -Restarting sliding scale insulin -Continue Levemir 4. HTN -Continue Lisinopril and Toprol XL 5. Dyslipidemia -Continue statin 6. Anxiety/Depression -continue citalopram 7. DVT ppx -Just had right foot surgery. Compression stocking on left foot VS, [facility]&O, [facility] Vital Signs/I&O Vital Signs Date Time Temp Pulse Resp B/P (MAP) Pulse Ox O2 Delivery O2 Flow Rate FiO2 12/28/19 18:15 98.4 80 18 106/66 (79) 94 Room Air 12/28/19 06:00 3.0 12/27/19 22:19 24 I&O- Last 24 Hours up to 6 AM 12/28/19 06:00 Intake Total 1260 ml Output Total 1505 ml Balance -245 ml Laboratory Data 24H LABS Laboratory Tests 2 12/27/19 19:45: Bedside Glucose (Misc Panel) 177H 12/28/19 05:13: Nucleated Red Blood Cells % (auto) 0.0, Anion Gap 3L, Glomerular Filtration Rate > 60.0, Calcium Level 8.6, C-Reactive Protein, Quantitative 6.49H 12/28/19 11:07: Bedside Glucose (Misc Panel) 150H 12/28/19 13:16: Bedside Glucose (Misc Panel) 111H 12/28/19 16:47: Bedside Glucose (Misc Panel) 188H 12/28/19 17:07: Nucleated Red Blood Cells % (auto) 0.0 12/28/19 18:21: Urine Color YELLOW, Urine Appearance TURBIDH, Urine pH 5.0, Urine Specific [address] 1.032, Urine Protein 2+H, Urine Glucose (UA) NEGATIVE, Urine Ketones NEGATIVE, Urine Blood 3+H, Urine Nitrite NEGATIVE, Urine Bilirubin NEGATIVE, Urine Urobilinogen 0.2, Urine Leukocyte Esterase NEGATIVE, Urine WBC (Auto) 7H, Urine RBC (Auto) TNTCH, Urine Hyaline Casts (Auto) 0, Urine Bacteria (Auto) NEGATIVE, Urine Squamous Epithelial Cells 1, Urine Uric Acid Crystals (Auto) LARGE, Urine Mucus (Auto) SMALL, Urine Sperm (Auto) CBC/BMP Laboratory Tests 12/28/19 05:13 12/28/19 17:07 Microbiology Microbiology 12/23/19 Gram Stain - Final, Complete 12/23/19 Wound Culture - Final, Complete Strep Agalactiae Group B 12/23/19 Anaerobic Culture - Final, Complete 12/23/19 Wound Culture - Final, Complete Strep Agalactiae Group B 12/22/19 Blood Culture - Final, Complete NO GROWTH AFTER 5 DAYS 12/22/19 Blood Culture - Final, Complete Staphylococcus Hominis Ssp Gladis NARCISA SMITH DO Dec 28, 2019 19:35
[2019-12-28] MEDS: TAMSULOSIN 0.4 MG CAP PO SCH (21:20)
[2019-12-28] MEDS: traMADol 50 MG TAB PO PRN (21:21)
[2019-12-29 02:00] VITALS: BP 141/82
[2019-12-29] MEDS: LevoFLOXacin IV 750 MG in IV 1 EA IV SCH (05:28)
[2019-12-29] MEDS: SODIUM CHLORIDE 0.9% INJ 10 ML SYR IV SCH ×2 (05:28→17:48)
[2019-12-29] MEDS: NS 1,000 ML IV SCH ×2 (05:28→22:00)
[2019-12-29 05:46] LABS: HEMATOCRIT 31.9 % (42.0-52.0); HEMOGLOBIN 9.9 g/dl (13.5-17.5); MEAN CORPUSCULAR HEMOGLOBIN 27.3 pg (27.0-33.0); MEAN CORPUSCULAR VOLUME 88.1 fl (80.0-96.0); PLATELET COUNT, AUTOMATED 271 10^3/uL (150-450); RED BLOOD COUNT 3.62 10^6/uL (4.30-6.10); WHITE BLOOD COUNT 13.3 10^3/uL (4.0-10.0)
[2019-12-29 06:00] VITALS: BP 145/81
[2019-12-29 06:24] LABS: BLOOD UREA NITROGEN 19 MG/DL (7-18); CALCIUM LEVEL 7.8 MG/DL (8.5-10.1); CARBON DIOXIDE LEVEL 31 MEQ/L (21-32); CHLORIDE LEVEL 102 MEQ/L (98-107); CREATININE FOR GFR 0.77 MG/DL (0.70-1.30); GLOMERULAR FILTRATION RATE > 60.0 (>56); GLUCOSE, FASTING 189 MG/DL (70-100); POTASSIUM SERUM 4.7 MEQ/L (3.5-5.1); SODIUM LEVEL 137 MEQ/L (136-145)
--- NOTE | 2019-12-29 07:50 | RO ---
DATE OF OPERATION: 12/28/2019 PREOPERATIVE DIAGNOSIS: Right foot ulcer infection. POSTOPERATIVE DIAGNOSIS: Right foot ulcer infection. PROCEDURE: Right foot incision and drainage/wound debridement including subcutaneous tissue. ANESTHESIA: Monitored anesthesia care. PREOPERATIVE INJECTION: 20 mL of 1:1 mixture of 1% Lidocaine plain and 0.5% Marcaine plain. ESTIMATED BLOOD LOSS: 10 mL. MATERIALS: None. COMPLICATIONS: None. SPECIMENS: Necrotic tissue, right foot. INDICATIONS FOR PROCEDURE: Jose L Sanchez is a 54-year-old male who underwent right fifth ray amputation, incision, and drainage. He had improvement of his infection and wound, but there was some continued necrotic tissue and some purulent tissue. The decision was made to bring him to the operating room for debridement, incision, and drainage. The patients side and site were identified and marked in the preoperative holding area. Consent was reviewed and obtained. All risks, complications, and alternatives to the procedure were explained to the patient in detail and all questions were answered. DESCRIPTION OF PROCEDURE: The patient was brought to the operating room and placed on a stretcher in the supine position. Monitored anesthesia care was delivered by the anesthesia team. Preoperative injection of 20 mL of 1:1 mix of 1% Lidocaine plain and 0.5% Marcaine plain was injected into the right foot. The right foot was prepped and draped in a normal sterile fashion. A tourniquet was applied, but was not used during the procedure. The wound was inspected. There was some necrotic tissue along the periphery of the wound. This was debrided with a #10 blade. There was some purulence stemming along the sulcus of the toes. Two stab incisions at the interspaces of toes three and four, two and three were made, and some purulent tissue was expressed. This area was irrigated with copious normal saline solution. No further purulent drainage was noted. Some necrotic tissue was sent for pathology. Saline gauze dressings were applied. The patient was brought to the post anesthesia care unit (PACU) with vital signs stable and neurovascular status intact. He will require further antibiotics and wound care. We will follow. MINDI
[2019-12-29] MEDS: HumaLOG INSULIN (NovoLOG) PER UNIT SC SCH ×4 (08:35→21:00)
[2019-12-29] MEDS: ATORVASTATIN 20 MG TAB PO SCH (08:35)
[2019-12-29] MEDS: MELOXICAM (MOBIC) 7.5 MG TAB PO SCH (08:36)
[2019-12-29] MEDS: CitaloPRAM (CeleXA) 20 MG TAB PO SCH (08:36)
[2019-12-29] MEDS: DOCUSATE SODIUM 100 MG CAP PO SCH ×2 (08:36→21:18)
[2019-12-29] MEDS: ASPIRIN 81 MG ENTERIC TAB PO SCH (08:36)
[2019-12-29 09:44] VITALS: O2SAT 96
[2019-12-29] MEDS: LEVEMIR (INSULIN DETEMIR) 1 UNITS/0.01ML SC SCH ×2 (10:22→21:18)
[2019-12-29] MEDS: PERCOCET 5MG/325MG TAB PO PRN ×2 (10:43→17:49)
--- NOTE | 2019-12-29 10:51 | IPN ---
DATE: 12/26/2019 SUBJECTIVE: The patient is seen and examined. Denies new complaints. He states he did well with his angiogram. Denies other symptoms. He states his pain is about the same. PHYSICAL EXAMINATION: Vitals are reviewed. He has remained afebrile. Labs are reviewed. White blood cell count is 14.4, CRP 13.3. Lower extremity examination: Erythema and edema are slightly improved. There remains some necrotic tissue within the wound. No further purulence. 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 PLAN: Continue current wound care. Continue antibiotics. We will follow. MINDI
[2019-12-29 13:16] LABS: HEMATOCRIT 35.8 % (42.0-52.0); HEMOGLOBIN 11.2 g/dl (13.5-17.5); MEAN CORPUSCULAR HEMOGLOBIN 27.4 pg (27.0-33.0); MEAN CORPUSCULAR HGB CONC 31.3 g/dl (32.0-36.5); MEAN CORPUSCULAR VOLUME 87.5 fl (80.0-96.0); PLATELET COUNT, AUTOMATED 288 10^3/uL (150-450); RED BLOOD COUNT 4.09 10^6/uL (4.30-6.10); WHITE BLOOD COUNT 12.5 10^3/uL (4.0-10.0)
[2019-12-29] MEDS: MORPHINE 2 MG/ML 1ML VIAL (J2270) IV PRN (13:21)
[2019-12-29 14:00] VITALS: BP 126/74
--- NOTE | 2019-12-29 19:36 | IPNPDOC ---
Subjective Date Seen The patient was seen on 12/29/19. Subjective Chief Complaint/HPI Mr. Sanchez is a 54 year old male with DM2 and HTN who presents here for right foot pain found to have right foot cellulitis with gangrene. He had Right 5th toe amputation and debridement on 12/24/2019 and second debridement on 12/28/2019. He denies any fever/chills, chest pain, dyspnea, abdominal pain, or dysuria. Objective Physical Examination General Exam: Positive: Alert, Cooperative Eye Exam: Positive: PERRLA ENT Exam: Positive: Atraumatic, Other ENT Neck Exam: Positive: Supple; Negative: JVD Chest Exam: Positive: Clear to auscultation Heart Exam: Positive: Rate Normal Telemetry: Positive: No significant arrhythmia Abdomen Exam: Positive: Normal bowel sounds Extremity Exam: Positive: Tenderness (right foot), Swelling (right foot), Other (there is small noninfected wound on the lateral plantar surface of the right foot around 1-2 cm. On the dorsal part of the right foot skin abrasion around 5- 7 cm. Right foot swollen with erythema) Skin Exam: Positive: Breakdown Neuro Exam: Positive: Normal Gait, Cranial Nerves 3-12 NL Psych Exam: Positive: Mental status NL Assessment /Plan Assessment Mr. Sanchez is a 54 year old male with DM2 here with sepsis 2/2 right foot cellulitis with with gangrene. On 12/23/2019, he had 5th toe amputation and debridement by podiatry. Podiatry consulted vascular surgery for arteriogram of the right leg which was done on 12/26/2019. Adequate blood flow for more surgica l intervention or debridements. Second debridement on 12/28/2019. Cultures grew Strep Agalactiae Group B on Levaquin for coverage Plan/VTE VTE Prophylaxis Ordered?: Yes Plan 1. Sepsis secondary to right foot infection -3/4 SIRS criteria (Fever, leukocytosis, and tachycardia) -On IV fluids and antibiotics -Resolved 2. Right foot cellulitis with gangrene -Seen on XR -Podiatry consulted. Recommendations appreciated. -Right 5th toe amputation and debridement on 12/23/2019 -Cultures grew strep agalactiae group B. -Discontinued vancomycin and Cefepime. On Levaquin -Vascular surgery consulted for arteriogram which was done on 12/26/2019. A dequate blood flow for more debridement/surgery -Podiatry further debrided on 12/28/2019 3. DM -Carb consistent diet -Restarting sliding scale insulin -Continue Levemir 4. HTN -Continue Lisinopril and Toprol XL 5. Dyslipidemia -Continue statin 6. Anxiety/Depression -continue citalopram 7. DVT ppx -Just had right foot surgery. Compression stocking on left foot Dispo: Patient may need rehab, PT/OT has been ordered VS, I&O, 24H, Fishbone Vital Signs/I&O Vital Signs Date Time Temp Pulse Resp B/P (MAP) Pulse Ox O2 Delivery O2 Flow Rate FiO2 12/29/19 18:19 19 12/29/19 14:00 98.2 73 126/74 (91) 94 Room Air 12/28/19 06:00 3.0 12/27/19 22:19 24 I&O- Last 24 Hours up to 6 AM 12/29/19 06:00 Intake Total 2630 ml Output Total 560 ml Balance 2070 ml Laboratory Data 24H LABS Laboratory Tests 2 12/28/19 19:48: Bedside Glucose (Misc Panel) 198H 12/29/19 05:36: Nucleated Red Blood Cells % (auto) 0.0, Anion Gap 4L, Glomerular Filtration Rate > 60.0, Calcium Level 7.8L 12/29/19 11:34: Bedside Glucose (Misc Panel) 218H 12/29/19 12:56: Nucleated Red Blood Cells % (auto) 0.0 12/29/19 16:40: Bedside Glucose (Misc Panel) 197H CBC/BMP Laboratory Tests 12/29/19 05:36 12/29/19 12:56 Microbiology Microbiology 12/23/19 Gram Stain - Final, Complete 12/23/19 Wound Culture - Final, Complete Strep Agalactiae Group B 12/23/19 Anaerobic Culture - Final, Complete 12/23/19 Wound Culture - Final, Complete Strep Agalactiae Group B 12/22/19 Blood Culture - Final, Complete NO GROWTH AFTER 5 DAYS 12/22/19 Blood Culture - Final, Complete Staphylococcus Hominis Ssp Gladis NARCISA SMITH DO Dec 29, 2019 19:36
[2019-12-29] MEDS: TAMSULOSIN 0.4 MG CAP PO SCH (21:18)
[2019-12-29 22:00] VITALS: BP 105/62
[2019-12-30 06:00] VITALS: BP 141/72
[2019-12-30] MEDS: SODIUM CHLORIDE 0.9% INJ 10 ML SYR IV SCH ×2 (06:00→18:26)
[2019-12-30] MEDS: LevoFLOXacin IV 750 MG in IV 1 EA IV SCH (06:03)
[2019-12-30 06:21] LABS: HEMATOCRIT 30.4 % (42.0-52.0); HEMOGLOBIN 9.7 g/dl (13.5-17.5); MEAN CORPUSCULAR HGB CONC 31.9 g/dl (32.0-36.5); MEAN CORPUSCULAR VOLUME 87.6 fl (80.0-96.0); PLATELET COUNT, AUTOMATED 259 10^3/uL (150-450); RED BLOOD COUNT 3.47 10^6/uL (4.30-6.10)
[2019-12-30 06:45] LABS: BLOOD UREA NITROGEN 21 MG/DL (7-18); CALCIUM LEVEL 8.3 MG/DL (8.5-10.1); CARBON DIOXIDE LEVEL 32 MEQ/L (21-32); CHLORIDE LEVEL 104 MEQ/L (98-107); CREATININE FOR GFR 0.72 MG/DL (0.70-1.30); GLOMERULAR FILTRATION RATE > 60.0 (>56); GLUCOSE, FASTING 242 MG/DL (70-100); POTASSIUM SERUM 4.5 MEQ/L (3.5-5.1); SODIUM LEVEL 138 MEQ/L (136-145)
[2019-12-30] MEDS ORDERED: KETOROLAC 30 MG/ML 1ML VIAL IV ONE (07:30)
[2019-12-30] MEDS ORDERED: PERCOCET 5MG/325MG TAB PO ONE (07:30)
[2019-12-30] MEDS ORDERED: MORPHINE 2 MG/ML 1ML VIAL (J2270) IV ONE (07:30)
--- NOTE | 2019-12-30 07:32 | IPNPDOC ---
Date Seen The patient was seen on 12/30/19. Progress Note SUBJECTIVE: c/o 7/10 pain in right foot . per RN , desaturates to <70% RA at night when pt sleeps, given ventimask overnight. no c/o fever, chills, or cough. OBJECTIVE VITALS: SEE BELOW GEN: no distress HEENT: no JVD, ventimask, no respiratory distress LUNGS: CTAB no wheezing or rales. HEART: S1S2 RRR ABD: obese soft NT ND EXT: right foot bandaged. SKIN: warm dry pink in color, well perfused. PROBLEMS: Nocturnal Hypoxia Right foot cellulitis with gangrene DM,uncontrolled HTN Dyslipidemia Anxiety/Depression Obesity BMI 39.1 PLAN: Defer to Dr. Rousseau if further debridement is necessary. change to po levaquin. ARU screen. Activity per podiatry. no further inpt vascular surgery rec ommendations. one time percocet and morphine for pain. r/o ANANYA w outpt sleep study. nighttime o2 as needed. check nocturnal pulse ox. adjust long acting insulin for better glycemic control. VS, I&O, 24H, Fishbone Vital Signs/I&O Vital Signs Date Time Temp Pulse Resp B/P (MAP) Pulse Ox O2 Delivery O2 Flow Rate FiO2 12/30/19 06:00 98.7 71 15 141/72 (95) 98 Venturi Mask 4.0 12/27/19 22:19 24 I&O- Last 24 Hours up to 6 AM 12/30/19 06:00 Intake Total 1440 ml Output Total 2325 ml Balance -885 ml Laboratory Data 24H LABS Laboratory Tests 2 12/29/19 11:34: Bedside Glucose (Misc Panel) 218H 12/29/19 12:56: Nucleated Red Blood Cells % (auto) 0.0 12/29/19 16:40: Bedside Glucose (Misc Panel) 197H 12/29/19 20:12: Bedside Glucose (Misc Panel) 206H 12/30/19 06:02: Nucleated Red Blood Cells % (auto) 0.0, Anion Gap 2L, Glomerular Filtration Rate > 60.0, Calcium Level 8.3L CBC/BMP Laboratory Tests 12/29/19 12:56 12/30/19 06:02 Microbiology Microbiology 12/23/19 Gram Stain - Final, Complete 12/23/19 Wound Culture - Final, Complete Strep Agalactiae Group B 12/23/19 Anaerobic Culture - Final, Complete 12/23/19 Wound Culture - Final, Complete Strep Agalactiae Group B 12/22/19 Blood Culture - Final, Complete NO GROWTH AFTER 5 DAYS 12/22/19 Blood Culture - Final, Complete Staphylococcus Hominis Ssp Gladis SWATHI GRIMES MD Dec 30, 2019 07:26
[2019-12-30] MEDS: ASPIRIN 81 MG ENTERIC TAB PO SCH (08:22)
[2019-12-30] MEDS: CitaloPRAM (CeleXA) 20 MG TAB PO SCH (08:22)
[2019-12-30] MEDS: ATORVASTATIN 20 MG TAB PO SCH (08:22)
[2019-12-30] MEDS: MELOXICAM (MOBIC) 7.5 MG TAB PO SCH (08:22)
[2019-12-30] MEDS: DOCUSATE SODIUM 100 MG CAP PO SCH ×2 (08:22→20:57)
[2019-12-30] MEDS: HumaLOG INSULIN (NovoLOG) PER UNIT SC SCH ×4 (08:23→20:58)
[2019-12-30] MEDS: LEVEMIR (INSULIN DETEMIR) 1 UNITS/0.01ML SC SCH ×2 (08:23→20:57)
[2019-12-30] MEDS: MORPHINE 2 MG/ML 1ML VIAL (J2270) IV PRN ×2 (11:34→17:40)
[2019-12-30] MEDS: NS 1,000 ML IV SCH ×2 (12:59→23:05)
[2019-12-30] MEDS ORDERED: amLODIPine 10 MG TAB PO ONE (14:00)
[2019-12-30] MEDS ORDERED: cloNIDine 0.2 MG TAB PO ONE (15:00)
[2019-12-30] MEDS ORDERED: cloNIDine 0.1 MG TAB PO ONE (16:00)
[2019-12-30] MEDS: SANTYL OINT 30GM TOP SCH (17:40)
[2019-12-30] MEDS: TAMSULOSIN 0.4 MG CAP PO SCH (20:57)
[2019-12-30 22:00] VITALS: BP_SYST 115; BP_SYST 127; BP_DIAS 66; BP_DIAS 68
[2019-12-30 22:41] VITALS: O2SAT 94
[2019-12-31] MEDS: NS 1,000 ML IV SCH ×2 (02:28→15:04)
[2019-12-31] MEDS: PERCOCET 5MG/325MG TAB PO PRN (05:18)
[2019-12-31] MEDS: LevoFLOXacin 750 MG TABLET PO SCH (05:18)
[2019-12-31] MEDS: SODIUM CHLORIDE 0.9% INJ 10 ML SYR IV SCH ×2 (05:18→18:36)
[2019-12-31 05:39] LABS: HEMOGLOBIN 9.8 g/dl (13.5-17.5); MEAN CORPUSCULAR HEMOGLOBIN 27.6 pg (27.0-33.0); MEAN CORPUSCULAR HGB CONC 31.6 g/dl (32.0-36.5); MEAN CORPUSCULAR VOLUME 87.3 fl (80.0-96.0); PLATELET COUNT, AUTOMATED 297 10^3/uL (150-450); RED BLOOD COUNT 3.55 10^6/uL (4.30-6.10); WHITE BLOOD COUNT 10.5 10^3/uL (4.0-10.0)
[2019-12-31 06:00] VITALS: BP 155/83
[2019-12-31 06:01] LABS: BLOOD UREA NITROGEN 19 MG/DL (7-18); CALCIUM LEVEL 8.5 MG/DL (8.5-10.1); CARBON DIOXIDE LEVEL 31 MEQ/L (21-32); CHLORIDE LEVEL 102 MEQ/L (98-107); GLOMERULAR FILTRATION RATE > 60.0 (>56); GLUCOSE, FASTING 295 MG/DL (70-100); POTASSIUM SERUM 4.7 MEQ/L (3.5-5.1); SODIUM LEVEL 138 MEQ/L (136-145)
--- NOTE | 2019-12-31 07:28 | IPNPDOC ---
Date Seen The patient was seen on 12/31/19. Progress Note SUBJECTIVE: denies polyphagia, polyuria, wt loss, and remains with uncontrolled glucose despite increasing levemir to 32 units sq bid and insulin sliding scale with coverage. no fever or chills. still c/o right foot pain6/10 pain scale not alleviated by current pain meds. no diarrhea despite being on abx. OBJECTIVE VITALS: SEE BELOW GEN: no distress no cyanosis. speaks in full sentences HEENT: no JVD, ventimask, no respiratory distress LUNGS: CTAB no wheezing or rales. HEART: S1S2 RRR nondisplaced PMI ABD: obese soft NT ND no HSM EXT: right foot bandaged. no edema SKIN: warm dry pink in color, well perfused. PROBLEMS: Nocturnal Hypoxia Right foot cellulitis with gangrene Uncontrolled pain due to Cellulitis DM,uncontrolled HTN Dyslipidemia Anxiety/Depression Obesity BMI 39.1 PLAN: prn IV pain meds for breakthrough pain. increased levemir to 35 units sq bid with sliding scale. 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 continue abx for now. ARU screen.activity per podiatry. dvt prophylaxis. VS, I&O, 24H, Fishbone Vital Signs/I&O Vital Signs Date Time Temp Pulse Resp B/P (MAP) Pulse Ox O2 Delivery O2 Flow Rate FiO2 12/31/19 06:23 16 12/30/19 23:28 4.0 12/30/19 22:41 94 Venturi Mask 12/30/19 22:00 98.6 67 127/66 (86) 12/27/19 22:19 24 I&O- Last 24 Hours up to 6 AM 12/31/19 06:00 Intake Total 900 ml Output Total 1900 ml Balance -1000 ml Laboratory Data 24H LABS Laboratory Tests 2 12/30/19 11:17: Bedside Glucose (Misc Panel) 260H 12/30/19 18:11: Bedside Glucose (Misc Panel) 253H 12/30/19 20:49: Bedside Glucose (Misc Panel) 249H 12/31/19 05:17: Nucleated Red Blood Cells % (auto) 0.0, Anion Gap 5L, Glomerular Filtration Rate > 60.0, Calcium Level 8.5, C-Reactive Protein, Quantitative 4.30H CBC/BMP Laboratory Tests 12/31/19 05:17 Microbiology Microbiology 12/23/19 Gram Stain - Final, Complete 12/23/19 Wound Culture - Final, Complete Strep Agalactiae Group B 12/23/19 Anaerobic Culture - Final, Complete 12/23/19 Wound Culture - Final, Complete Strep Agalactiae Group B 12/22/19 Blood Culture - Final, Complete NO GROWTH AFTER 5 DAYS 12/22/19 Blood Culture - Final, Complete Staphylococcus Hominis Ssp Gladis SWATHI GRIMES MD Dec 31, 2019 07:28
--- NOTE | 2019-12-31 07:41 | CR ---
ADVANCED WOUND CARE CONSULTATION VIA TELEMEDICINE DATE OF CONSULTATION: 12/30/2019 REQUESTING PHYSICIAN: Dr. Rousseau REASON FOR CONSULTATION: Right diabetic foot wound HISTORY OF PRESENT ILLNESS: The patient presented with gas gangrene and an ischemic, necrotic right fifth toe. This has been amputated along with extensive debridement of the dorsal aspect of his right foot. When seen today, the patient has an 8.0 cm by 7.5 cm wound with a wound depth of 0.6 cm. There is some granulation tissue present with exposed fascia and early exposed tendon noted. The drainage is moderate serosanguinous without odor and there is no purulent or advanced necrotic tissue visualized. The patient is on Levaquin and is undergoing dressing changes. WOUND CARE RECOMMENDATIONS: 1. The patients wound should be cleansed with Vashe wound cleanser for 10 minutes utilizing soaked 4 by 4 gauze sponges. This is then to be removed and Hydrofera Blue Transfer should be applied followed by an Extrasorbs dressing. These are to be changed on a daily basis. 2. Heel flow boot is mandatory to prevent the tissue injuries involving the heel. 3. The patient has had an arterial ultrasound which shows diffuse vascular disease and has been investigated for the distal aorta and bilateral pelvic runoff by Dr. Connors.. 4. The patient's last hemoglobin A1c was 9.9 and his chem-BG tests are running in the mid 200s. This is high and unacceptable for good wound healing. Diabetic control should be aimed at 180 or less on the glucose to expedite wound healing. When the patient has been discharged, if requested, we will be glad to see him in our Wound Center for further follow up. MINDI
--- NOTE | 2019-12-31 07:42 | IPN ---
DATE: 12/30/2019 SUBJECTIVE: Patient seen and examined at bedside. States he is having pain in his right foot at the wound site. Denies other complaints. PHYSICAL EXAMINATION: Vitals are reviewed. He has remained afebrile. Extremity examination: Erythema and edema is improved. There is no further purulence noted to the wound. There is some necrotic and slough within the wound bed. LABORATORY DATA: Labs are reviewed. White cell count is improved to 10; hemoglobin was 9.7. Final cultures are Group B Strep. ASSESSMENT: 54-year-old diabetic male with gas gangrene status post right foot incision and drainage and fifth ray amputation. PLAN: Continue antibiotics. Presently he is on Levaquin. We will order an Advanced Wound Care Consult with Dr. Massey. Presently he has Vashe and Hydrofera Blue ordered. We will add Santyl today. He should have follow up with Dr. Massey outpatient. If wound continues to improve and no further infection is noted we will plan for discharge with follow up at the Wound Care Center. MINDI
[2019-12-31] MEDS ORDERED: LEVEMIR (INSULIN DETEMIR) 1 UNITS/0.01ML SC ONE (08:00)
[2019-12-31] MEDS: DOCUSATE SODIUM 100 MG CAP PO SCH ×2 (08:43→20:53)
[2019-12-31] MEDS: ASPIRIN 81 MG ENTERIC TAB PO SCH (08:43)
[2019-12-31] MEDS: ATORVASTATIN 20 MG TAB PO SCH (08:43)
[2019-12-31] MEDS: CitaloPRAM (CeleXA) 20 MG TAB PO SCH (08:44)
[2019-12-31] MEDS: MELOXICAM (MOBIC) 7.5 MG TAB PO SCH (08:44)
[2019-12-31] MEDS: HumaLOG INSULIN (NovoLOG) PER UNIT SC SCH ×4 (08:45→20:54)
[2019-12-31] MEDS: SANTYL OINT 30GM TOP SCH (11:06)
[2019-12-31] MEDS: MORPHINE 2 MG/ML 1ML VIAL (J2270) IV PRN ×2 (11:06→18:36)
[2019-12-31 14:00] VITALS: BP 119/69
[2019-12-31] MEDS: TAMSULOSIN 0.4 MG CAP PO SCH (20:53)
[2019-12-31] MEDS: traMADol 50 MG TAB PO PRN (20:53)
[2019-12-31 21:00] VITALS: O2SAT 95
[2019-12-31] MEDS ORDERED: LEVEMIR (INSULIN DETEMIR) 1 UNITS/0.01ML SC SCH (21:00)
[2019-12-31 22:00] VITALS: BP 121/69
[2020-01-01] MEDS: NS 1,000 ML IV SCH ×2 (03:30→15:05)
[2020-01-01] MEDS: PERCOCET 5MG/325MG TAB PO PRN (03:49)
[2020-01-01] MEDS: LevoFLOXacin 750 MG TABLET PO SCH (05:45)
[2020-01-01] MEDS: traMADol 50 MG TAB PO PRN ×2 (05:45→20:09)
[2020-01-01] MEDS: SODIUM CHLORIDE 0.9% INJ 10 ML SYR IV SCH ×2 (05:46→17:08)
[2020-01-01 06:00] VITALS: BP 170/89
[2020-01-01 06:07] LABS: HEMATOCRIT 31.6 % (42.0-52.0); HEMOGLOBIN 10.1 g/dl (13.5-17.5); MEAN CORPUSCULAR HEMOGLOBIN 27.9 pg (27.0-33.0); MEAN CORPUSCULAR VOLUME 87.3 fl (80.0-96.0); PLATELET COUNT, AUTOMATED 309 10^3/uL (150-450); RED BLOOD COUNT 3.62 10^6/uL (4.30-6.10); WHITE BLOOD COUNT 10.6 10^3/uL (4.0-10.0)
[2020-01-01 06:37] LABS: BLOOD UREA NITROGEN 21 MG/DL (7-18); C REACTIVE PROTEIN QUANTITATIV 2.49 MG/DL (0.00-0.30); CALCIUM LEVEL 8.4 MG/DL (8.5-10.1); CARBON DIOXIDE LEVEL 33 MEQ/L (21-32); CHLORIDE LEVEL 104 MEQ/L (98-107); CREATININE FOR GFR 0.75 MG/DL (0.70-1.30); GLOMERULAR FILTRATION RATE > 60.0 (>56); GLUCOSE, FASTING 229 MG/DL (70-100); POTASSIUM SERUM 4.6 MEQ/L (3.5-5.1); SODIUM LEVEL 138 MEQ/L (136-145)
--- NOTE | 2020-01-01 07:40 | IPNPDOC ---
Date Seen The patient was seen on 01/01/20. Progress Note SUBJECTIVE: awaiting rehab availability. no other acute medical issues. denies fever chills. pain is controlled. no new complaints. OBJECTIVE VITALS: SEE BELOW GEN: no distress no cyanosis. speaks in full sentences. arousable from sleep. AAOx 3 HEENT: no JVD, dry mucus membranes LUNGS: CTAB no wheezing or rales. HEART: S1S2 RRR nondisplaced PMI ABD: obese soft NT ND no HSM EXT: right foot bandaged. no edema SKIN: warm dry pink in color, well perfused. PROBLEMS: Nocturnal Hypoxia Right foot cellulitis with gangrene Uncontrolled pain due to Cellulitis DM,uncontrolled HTN Dyslipidemia Anxiety/Depression Obesity BMI 39.1 PLAN: no changes in med mgt. no acute medical concerns needing adjustment of meds. awaiting rehab bed. VS, I&O, 24H, Fishbone Vital Signs/I&O Vital Signs Date Time Temp Pulse Resp B/P (MAP) Pulse Ox O2 Delivery O2 Flow Rate FiO2 01/01/20 06:15 18 01/01/20 06:00 97.5 67 170/89 (116) 98 Venturi Mask 4.0 12/27/19 22:19 24 I&O- Last 24 Hours up to 6 AM 01/01/20 06:00 Intake Total 1450 ml Output Total 3100 ml Balance -1650 ml Laboratory Data 24H LABS Laboratory Tests 2 12/31/19 11:27: Bedside Glucose (Misc Panel) 313H 12/31/19 16:30: Bedside Glucose (Misc Panel) 304H 12/31/19 20:04: Bedside Glucose (Misc Panel) 290H 01/01/20 05:54: Nucleated Red Blood Cells % (auto) 0.0, Anion Gap 1L, Glomerular Filtration Rate > 60.0, Calcium Level 8.4L, C-Reactive Protein, Quantitative 2.49H CBC/BMP Laboratory Tests 01/01/20 05:54 Microbiology Microbiology 12/23/19 Gram Stain - Final, Complete 12/23/19 Wound Culture - Final, Complete Strep Agalactiae Group B 12/23/19 Anaerobic Culture - Final, Complete 12/23/19 Wound Culture - Final, Complete Strep Agalactiae Group B 12/22/19 Blood Culture - Final, Complete NO GROWTH AFTER 5 DAYS 12/22/19 Blood Culture - Final, Complete Staphylococcus Hominis Ssp Gladis SWATHI GRIMES MD Jan 01, 2020 07:40
[2020-01-01] MEDS ORDERED: LEVO750T13 PO (07:44)
[2020-01-01] MEDS ORDERED: PERCOCET PO (07:44)
[2020-01-01] MEDS: DOCUSATE SODIUM 100 MG CAP PO SCH ×2 (08:18→20:07)
[2020-01-01] MEDS: ATORVASTATIN 20 MG TAB PO SCH (08:18)
[2020-01-01] MEDS: MELOXICAM (MOBIC) 7.5 MG TAB PO SCH (08:18)
[2020-01-01] MEDS: SANTYL OINT 30GM TOP SCH (08:18)
[2020-01-01] MEDS: CitaloPRAM (CeleXA) 20 MG TAB PO SCH (08:18)
[2020-01-01] MEDS: ASPIRIN 81 MG ENTERIC TAB PO SCH (08:18)
[2020-01-01] MEDS: HumaLOG INSULIN (NovoLOG) PER UNIT SC SCH ×4 (08:18→20:08)
[2020-01-01] MEDS ORDERED: LEVEMIR (INSULIN DETEMIR) 1 UNITS/0.01ML SC SCH (09:00)
--- NOTE | 2020-01-01 10:00 | NOCOX ---
DATE: 12/31/2019 REFERRING PHYSICIAN: Solomon Chung DO Nocturnal recording oximetry was performed initially on room air. Baseline saturation was 97%. Saturations fell to 60%. Oxygen was applied at 2 L/min. Throughout the remaining portion of the study, saturations remained as low as 60% and there was a variable pattern. IMPRESSION: Abnormal nocturnal oximetry with variable desaturations to 60%, not improved with supplemental oxygen. Pattern suggesting either Figueroa-Rosas respirations or obstructive sleep apnea syndrome. MTDD
[2020-01-01] MEDS ORDERED: LEVEMIR (INSULIN DETEMIR) 1 UNITS/0.01ML SC ONE (12:15)
[2020-01-01 14:00] VITALS: BP 118/64
--- NOTE | 2020-01-01 14:41 | IPN ---
DATE: 01/01/2020 Patient seen and examined at bedside. He denies new complaints. States he has some pain in his foot but is unchanged and is controlled by his current medications. Vital signs are reviewed. He has remained afebrile. Labs are reviewed. White blood cell count is 10.6. CRP is 2.49. Lower extremity examination: Erythema and edema are essentially resolved. Wound base is inspected. It is now largely granular. There is some patchy necrotic tissue. No further purulence is noted. ASSESSMENT: A 54-year-old diabetic male with gas gangrene, status post 5th ray amputation and aggressive debridement. PLAN: Patient is okay to be discharged to a rehabilitation facility. I recommend that he have 6 weeks antibiotic coverage. Presently he is on Levaquin by mouth. This is appropriate given the culture results. He should have followup with Dr. Massey and myself on an outpatient basis. MINDI
[2020-01-01 19:55] VITALS: BP 146/82
[2020-01-01] MEDS: TAMSULOSIN 0.4 MG CAP PO SCH (20:07)
[2020-01-01] MEDS: LEVEMIR (INSULIN DETEMIR) 1 UNITS/0.01ML SC SCH (20:08)
[2020-01-02] MEDS: LevoFLOXacin 750 MG TABLET PO SCH (05:20)
[2020-01-02] MEDS: NS 1,000 ML IV SCH ×2 (05:20→17:52)
[2020-01-02] MEDS: SODIUM CHLORIDE 0.9% INJ 10 ML SYR IV SCH ×2 (05:21→17:51)
[2020-01-02] MEDS: SODIUM CHLORIDE 0.9% INJ 10 ML SYR IV PRN (05:22)
[2020-01-02] MEDS: traMADol 50 MG TAB PO PRN ×2 (05:38→18:38)
[2020-01-02 05:44] LABS: HEMATOCRIT 31.6 % (42.0-52.0); HEMOGLOBIN 10.3 g/dl (13.5-17.5); MEAN CORPUSCULAR HEMOGLOBIN 28.3 pg (27.0-33.0); MEAN CORPUSCULAR HGB CONC 32.6 g/dl (32.0-36.5); MEAN CORPUSCULAR VOLUME 86.8 fl (80.0-96.0); PLATELET COUNT, AUTOMATED 317 10^3/uL (150-450); RED BLOOD COUNT 3.64 10^6/uL (4.30-6.10); WHITE BLOOD COUNT 11.5 10^3/uL (4.0-10.0)
[2020-01-02 06:01] VITALS: BP 147/88
[2020-01-02 06:14] LABS: BLOOD UREA NITROGEN 22 MG/DL (7-18); CALCIUM LEVEL 8.3 MG/DL (8.5-10.1); CARBON DIOXIDE LEVEL 33 MEQ/L (21-32); CHLORIDE LEVEL 101 MEQ/L (98-107); CREATININE FOR GFR 0.88 MG/DL (0.70-1.30); GLOMERULAR FILTRATION RATE > 60.0 (>56); GLUCOSE, FASTING 268 MG/DL (70-100); POTASSIUM SERUM 4.7 MEQ/L (3.5-5.1); SODIUM LEVEL 138 MEQ/L (136-145)
--- NOTE | 2020-01-02 07:20 | IPNPDOC ---
Date Seen The patient was seen on 01/02/20. Progress Note SUBJECTIVE: desat when he sleeps. nocturnal ox: severe ANANYA with o2 sat 60's at night with no improvement with oxygen. no c/o pain. per podiatry, 6wks total abx. awaiting rehab bed. no c/o sob, cp, fever, chills OBJECTIVE VITALS: SEE BELOW GEN: no cyanosis. speaks in full sentences. AAOx 3 HEENT: No cervical LADno JVD, dry mucus membranes LUNGS: AEBE CTAB no wheezing or rales. HEART:no murmurs/rubs S1S2 RRR nondisplaced PMI ABD: obese soft NT ND no HSM no CVAT EXT: right foot bandaged. no edema SKIN: warm dry pink in color, well perfused. PROBLEMS: Right foot cellulitis with gangrene Severe ANANYA with nocturnal hypoxia DM,uncontrolled HTN Dyslipidemia Anxiety/Depression Obesity BMI 39.1 PLAN: per pulm,severe nocturnal hypoxia, needs CPAP and immediate sleep study at discharge. continue pulse ox at night, 6wks total abx, awaiting rehab bed, and [facility] as outpt for wound care. [facility] Vital Signs Date Time Temp Pulse Resp B/P (MAP) Pulse Ox O2 Delivery O2 Flow Rate FiO2 01/02/20 06:01 97.2 65 18 147/88 (107) 93 Ventilator 2.0 12/27/19 22:19 24 I&O- Last 24 Hours up to 6 AM 01/02/20 06:00 Intake Total 2120 ml Output Total 1400 ml Balance 720 ml Laboratory Data 24H LABS Laboratory Tests 2 01/01/20 11:53: Bedside Glucose (Misc Panel) 251H 01/01/20 16:34: Bedside Glucose (Misc Panel) 271H 01/01/20 19:58: Bedside Glucose (Misc Panel) 284H 01/02/20 05:31: Nucleated Red Blood Cells % (auto) 0.0, Anion Gap 4L, Glomerular Filtration Rate > 60.0, Calcium Level 8.3L CBC/BMP Laboratory Tests 01/02/20 05:31 Microbiology Microbiology 12/23/19 Gram Stain - Final, Complete 12/23/19 Wound Culture - Final, Complete Strep Agalactiae Group B 12/23/19 Anaerobic Culture - Final, Complete 12/23/19 Wound Culture - Final, Complete Strep Agalactiae Group B SWATHI GRIMES MD Jan 02, 2020 07:20
[2020-01-02] MEDS: LEVEMIR (INSULIN DETEMIR) 1 UNITS/0.01ML SC SCH ×2 (08:48→20:07)
[2020-01-02] MEDS: HumaLOG INSULIN (NovoLOG) PER UNIT SC SCH ×4 (08:48→20:08)
[2020-01-02] MEDS: ATORVASTATIN 20 MG TAB PO SCH (08:49)
[2020-01-02] MEDS: SANTYL OINT 30GM TOP SCH (08:49)
[2020-01-02] MEDS: CitaloPRAM (CeleXA) 20 MG TAB PO SCH (08:49)
[2020-01-02] MEDS: MELOXICAM (MOBIC) 7.5 MG TAB PO SCH (08:49)
[2020-01-02] MEDS: ASPIRIN 81 MG ENTERIC TAB PO SCH (08:49)
[2020-01-02] MEDS: PERCOCET 5MG/325MG TAB PO PRN ×2 (09:08→20:07)
[2020-01-02] MEDS: DOCUSATE SODIUM 100 MG CAP PO SCH ×2 (09:08→20:08)
[2020-01-02 14:00] VITALS: BP 145/89
[2020-01-02] MEDS: TAMSULOSIN 0.4 MG CAP PO SCH (20:07)
[2020-01-02 22:00] VITALS: BP 143/83
[2020-01-03 06:00] VITALS: BP 151/71
[2020-01-03] MEDS: SODIUM CHLORIDE 0.9% INJ 10 ML SYR IV SCH ×2 (06:00→18:08)
[2020-01-03] MEDS: LevoFLOXacin 750 MG TABLET PO SCH (06:03)
[2020-01-03] MEDS: ASPIRIN 81 MG ENTERIC TAB PO SCH (07:52)
[2020-01-03] MEDS: CitaloPRAM (CeleXA) 20 MG TAB PO SCH (07:52)
[2020-01-03] MEDS: ATORVASTATIN 20 MG TAB PO SCH (07:52)
[2020-01-03] MEDS: MELOXICAM (MOBIC) 7.5 MG TAB PO SCH (07:52)
[2020-01-03] MEDS: DOCUSATE SODIUM 100 MG CAP PO SCH ×2 (07:53→20:57)
[2020-01-03] MEDS: HumaLOG INSULIN (NovoLOG) PER UNIT SC SCH ×4 (07:53→20:58)
[2020-01-03] MEDS: SANTYL OINT 30GM TOP SCH (07:53)
[2020-01-03] MEDS: LEVEMIR (INSULIN DETEMIR) 1 UNITS/0.01ML SC SCH ×2 (07:53→20:56)
--- NOTE | 2020-01-03 08:47 | IPNPDOC ---
Date Seen The patient was seen on 01/03/20. Progress Note SUBJECTIVE: no c/o right foot pain, sob, cp, fever, chills. no new issues overnight. still desat on o2 seen on continuous pulse ox, and will need sleep study as outpt OBJECTIVE VITALS: SEE BELOW GEN: AAOx 3 HEENT: No cervical LADno JVD, moist mucus membranes LUNGS: AEBE CTAB no wheezing or rales. HEART:no murmurs/rubs S1S2 RRR nondisplaced PMI ABD: obese soft NT ND no HSM no CVAT EXT: right foot bandaged. no edema SKIN: warm dry pink in color, well perfused. PROBLEMS: Right foot cellulitis with gangrene Severe ANANYA with nocturnal hypoxia DM,improving HTN Dyslipidemia Anxiety/Depression Obesity BMI 39.1 PLAN: awaiting subacute rehab. changed to alc status. pt will need 6wks total abx, and stillerman as outpt for wound care. DM better controlled. continue continuous pulse ox at night due to severe nocturnal hypoxia that does not respond to oxygen. pt will need to be awakened when monitor beeps. VS, I&O, 24H, Fishbone Vital Signs/I&O Vital Signs Date Time Temp Pulse Resp B/P (MAP) Pulse Ox O2 Delivery O2 Flow Rate FiO2 01/03/20 06:00 97.5 74 20 151/71 (97) 96 Venturi Mask 4.0 I&O- Last 24 Hours up to 6 AM 01/03/20 06:00 Intake Total 2640 ml Output Total 5850 ml Balance -3210 ml Laboratory Data 24H LABS Laboratory Tests 2 01/02/20 11:17: Bedside Glucose (Misc Panel) 156H 01/02/20 16:40: Bedside Glucose (Misc Panel) 223H 01/02/20 19:48: Bedside Glucose (Misc Panel) 234H 01/03/20 06:06: Bedside Glucose (Misc Panel) 177H SWATHI GRIMES MD Jan 03, 2020 08:47
[2020-01-03] MEDS: PERCOCET 5MG/325MG TAB PO PRN (12:40)
[2020-01-03] MEDS: ACETAMINOPHEN TAB 650MG DOSE (2X325MG) PO PRN (20:56)
[2020-01-03] MEDS: TAMSULOSIN 0.4 MG CAP PO SCH (20:56)
[2020-01-04 06:00] VITALS: BP 153/78
[2020-01-04] MEDS: SODIUM CHLORIDE 0.9% INJ 10 ML SYR IV SCH ×2 (06:00→18:01)
[2020-01-04] MEDS: LevoFLOXacin 750 MG TABLET PO SCH (06:23)
[2020-01-04] MEDS: PERCOCET 5MG/325MG TAB PO PRN (06:28)
[2020-01-04] MEDS: CitaloPRAM (CeleXA) 20 MG TAB PO SCH (08:16)
[2020-01-04] MEDS: ATORVASTATIN 20 MG TAB PO SCH (08:16)
[2020-01-04] MEDS: ASPIRIN 81 MG ENTERIC TAB PO SCH (08:16)
[2020-01-04] MEDS: HumaLOG INSULIN (NovoLOG) PER UNIT SC SCH ×4 (08:16→20:45)
[2020-01-04] MEDS: MELOXICAM (MOBIC) 7.5 MG TAB PO SCH (08:16)
[2020-01-04] MEDS: LEVEMIR (INSULIN DETEMIR) 1 UNITS/0.01ML SC SCH ×2 (08:18→20:45)
[2020-01-04] MEDS: DOCUSATE SODIUM 100 MG CAP PO SCH ×2 (08:22→20:44)
[2020-01-04] MEDS: SANTYL OINT 30GM TOP SCH (08:22)
[2020-01-04] MEDS: traMADol 50 MG TAB PO PRN (20:43)
[2020-01-04] MEDS: ACETAMINOPHEN TAB 650MG DOSE (2X325MG) PO PRN (20:44)
[2020-01-04] MEDS: TAMSULOSIN 0.4 MG CAP PO SCH (20:44)
[2020-01-04 21:00] VITALS: O2SAT 96
[2020-01-05 06:00] VITALS: BP 150/82
[2020-01-05] MEDS: SODIUM CHLORIDE 0.9% INJ 10 ML SYR IV SCH (06:17)
[2020-01-05] MEDS: LevoFLOXacin 750 MG TABLET PO SCH (06:17)
[2020-01-05 07:01] LABS: HEMATOCRIT 32.4 % (42.0-52.0); HEMOGLOBIN 10.3 g/dl (13.5-17.5); MEAN CORPUSCULAR HEMOGLOBIN 27.4 pg (27.0-33.0); MEAN CORPUSCULAR HGB CONC 31.8 g/dl (32.0-36.5); MEAN CORPUSCULAR VOLUME 86.2 fl (80.0-96.0); PLATELET COUNT, AUTOMATED 348 10^3/uL (150-450); RED BLOOD COUNT 3.76 10^6/uL (4.30-6.10); WHITE BLOOD COUNT 10.6 10^3/uL (4.0-10.0)
[2020-01-05 07:21] LABS: ERYTHROCYTE SEDIMENTATION RATE 50 mm/hr (0-20)
[2020-01-05 07:24] LABS: BLOOD UREA NITROGEN 17 MG/DL (7-18); C REACTIVE PROTEIN QUANTITATIV 0.83 MG/DL (0.00-0.30); CARBON DIOXIDE LEVEL 32 MEQ/L (21-32); CHLORIDE LEVEL 102 MEQ/L (98-107); GLOMERULAR FILTRATION RATE > 60.0 (>56); GLUCOSE, FASTING 164 MG/DL (70-100); POTASSIUM SERUM 4.5 MEQ/L (3.5-5.1); SODIUM LEVEL 138 MEQ/L (136-145)
[2020-01-05] MEDS: HumaLOG INSULIN (NovoLOG) PER UNIT SC SCH ×4 (08:29→21:51)
[2020-01-05] MEDS: DOCUSATE SODIUM 100 MG CAP PO SCH ×2 (08:30→21:50)
[2020-01-05] MEDS: LEVEMIR (INSULIN DETEMIR) 1 UNITS/0.01ML SC SCH ×2 (08:30→21:50)
[2020-01-05] MEDS: ASPIRIN 81 MG ENTERIC TAB PO SCH (08:30)
[2020-01-05] MEDS: CitaloPRAM (CeleXA) 20 MG TAB PO SCH (08:30)
[2020-01-05] MEDS: ATORVASTATIN 20 MG TAB PO SCH (08:30)
[2020-01-05] MEDS: SANTYL OINT 30GM TOP SCH (08:31)
[2020-01-05] MEDS: MELOXICAM (MOBIC) 7.5 MG TAB PO SCH (08:31)
[2020-01-05] MEDS: traMADol 50 MG TAB PO PRN ×2 (08:31→14:51)
--- NOTE | 2020-01-05 08:58 | IPNPDOC ---
Date Seen The patient was seen on 01/05/20. Progress Note SUBJECTIVE: Per Rn, pt needs to awakened >3x at night due to continuous pulse ox detecting o2 sat as low as 29%, not responding to supplemental nutrition. no fever, no c/o pain in foot. no chills. pt needs outpt sleep study and pulm referral for cpap at hospital discharge. he is awaiting placement. no other c/o this morning. no diarrhea despite plans for 6 weeks total of abx. OBJECTIVE VITALS: SEE BELOW GEN: AAOx 3 no respiratory distress or use of acc resp mm HEENT: No cervical LAD no JVD, moist mucus membranes PERRL LUNGS: AEBE CTAB no wheezing or rales. HEART:no murmurs/rubs S1S2 RRR nondisplaced PMI ABD: obese soft NT ND no HSM no CVAT EXT: right foot bandaged. no edema SKIN: warm dry pink in color, well perfused. PROBLEMS: Right foot cellulitis with gangrene Severe ANANYA with nocturnal hypoxia DM,improving HTN Dyslipidemia Anxiety/Depression Obesity BMI 39.1 PLAN: ALC status awaiting subacute rehab placement. continue w continuous pulse ox. needs sleep studyand cpap as outpt. continue weekly cbc esr crp monitoring,a nd to complete a total of 6wks abx. dr lieberman for wound mgt. outpt fu dr neff at hospital discharge. per vascular surgery, no acute needs for revascularization but may fu in the office.increased levemir insulin to 55units sq bid hold for glucose<180 for better glycemic control. VS, I&O, 24H, Fishbone Vital Signs/I&O Vital Signs Date Time Temp Pulse Resp B/P (MAP) Pulse Ox O2 Delivery O2 Flow Rate FiO2 01/05/20 08:31 17 01/05/20 06:00 97.8 78 150/82 (104) 98 Room Air 01/04/20 21:00 4.0 I&O- Last 24 Hours up to 6 AM 01/05/20 06:00 Intake Total 1890 ml Output Total 2800 ml Balance -910 ml Laboratory Data 24H LABS Laboratory Tests 2 01/04/20 11:44: Bedside Glucose (Misc Panel) 286H 01/04/20 16:34: Bedside Glucose (Misc Panel) 267H 01/04/20 20:31: Bedside Glucose (Misc Panel) 287H 01/05/20 06:47: Nucleated Red Blood Cells % (auto) 0.0, Erythrocyte Sedimentation Rate 50H, Anion Gap 4L, Glomerular Filtration Rate > 60.0, Calcium Level 9.0, C-Reactive Protein, Quantitative 0.83H CBC/BMP Laboratory Tests 01/05/20 06:47 SWATHI GRIMES MD Jan 05, 2020 08:58
[2020-01-05 09:00] VITALS: O2SAT 96
[2020-01-05] MEDS: PERCOCET 5MG/325MG TAB PO PRN ×3 (11:02→21:52)
[2020-01-05] MEDS: TAMSULOSIN 0.4 MG CAP PO SCH (21:50)
[2020-01-06 01:22] VITALS: O2SAT 94
[2020-01-06] MEDS: LevoFLOXacin 750 MG TABLET PO SCH (05:07)
[2020-01-06] MEDS: traMADol 50 MG TAB PO PRN ×2 (05:07→11:49)
[2020-01-06 06:57] VITALS: BP 139/74
[2020-01-06] MEDS: LEVEMIR (INSULIN DETEMIR) 1 UNITS/0.01ML SC SCH ×2 (07:41→20:59)
--- NOTE | 2020-01-06 08:02 | IPN ---
DATE: 01/05/2020 SUBJECTIVE: Patient seen and examined at bedside, states he is still having some pain in his foot otherwise doing well. PHYSICAL EXAMINATION: Vitals are reviewed. He has remained afebrile. Lower extremity examination: There is further granulation tissue with minimal necrotic tissue within the wound. LABORATORY DATA: Reviewed. White blood cell count is 10.6, ESR is 50. CRP is 0.83. ASSESSMENT: This is a 4-year-old diabetic male status post fifth ray amputation, incision and drainage. PLAN: Continue current wound care. Await rehab placement. He should have follow up with Dr. Massey and I once discharged. MINDI
[2020-01-06 09:00] VITALS: O2SAT 96
[2020-01-06] MEDS: MELOXICAM (MOBIC) 7.5 MG TAB PO SCH (09:03)
[2020-01-06] MEDS: HumaLOG INSULIN (NovoLOG) PER UNIT SC SCH ×4 (09:03→21:00)
[2020-01-06] MEDS: ASPIRIN 81 MG ENTERIC TAB PO SCH (09:03)
[2020-01-06] MEDS: SANTYL OINT 30GM TOP SCH (09:04)
[2020-01-06] MEDS: CitaloPRAM (CeleXA) 20 MG TAB PO SCH (09:04)
[2020-01-06] MEDS: DOCUSATE SODIUM 100 MG CAP PO SCH ×2 (09:04→20:58)
[2020-01-06] MEDS: ATORVASTATIN 20 MG TAB PO SCH (09:04)
[2020-01-06] MEDS: PERCOCET 5MG/325MG TAB PO PRN ×2 (09:04→17:33)
[2020-01-06 14:00] VITALS: BP 137/77
[2020-01-06] MEDS: TAMSULOSIN 0.4 MG CAP PO SCH (20:58)
[2020-01-06 22:00] VITALS: BP 136/80; O2SAT 94
[2020-01-07 04:20] VITALS: O2SAT 85
[2020-01-07] MEDS: LevoFLOXacin 750 MG TABLET PO SCH (05:36)
[2020-01-07 06:00] VITALS: BP 128/74
[2020-01-07] MEDS: LEVEMIR (INSULIN DETEMIR) 1 UNITS/0.01ML SC SCH ×2 (07:42→21:49)
[2020-01-07] MEDS: ATORVASTATIN 20 MG TAB PO SCH (08:56)
[2020-01-07] MEDS: MELOXICAM (MOBIC) 7.5 MG TAB PO SCH (08:56)
[2020-01-07] MEDS: DOCUSATE SODIUM 100 MG CAP PO SCH ×2 (08:56→21:48)
[2020-01-07] MEDS: ASPIRIN 81 MG ENTERIC TAB PO SCH (08:56)
[2020-01-07] MEDS: CitaloPRAM (CeleXA) 20 MG TAB PO SCH (08:56)
[2020-01-07] MEDS: HumaLOG INSULIN (NovoLOG) PER UNIT SC SCH ×4 (08:56→21:49)
[2020-01-07] MEDS: SANTYL OINT 30GM TOP SCH (08:57)
[2020-01-07] MEDS: PERCOCET 5MG/325MG TAB PO PRN ×2 (08:57→18:02)
[2020-01-07 09:00] VITALS: O2SAT 92
--- NOTE | 2020-01-07 11:04 | IPNPDOC ---
Text Note Date of Service The patient was seen on 01/07/20. NOTE SUBJECTIVE: Patient seen at bedside today, does not offer any complaints. I informed the patient about my call with his insurance company and that we are waiting to get a in network facility for him. [facility] is working on [facility]. He failed trial of void before so still has the david. No fever or chills. PHYSICAL EXAM: VITALS: SEE BELOW GEN: AAOx 3 , laying in bed in no distress. HEENT: NC/AT, moist mucus membranes, anicteric eyes, PERRL Neck: No JVD, No thyromegaly LUNGS: B/L vesicular breath sounds, symmetrical airentry, no wheezing or rales. HEART: no murmurs/rubs S1S2 RRR nondisplaced PMI ABD: obese soft NT ND , normal bowel sounds. EXT: right foot bandaged. no edema bilaterally SKIN: warm dry pink in color, well perfused. Labs and radiology : reviewed Assessment and Plan: Patient is 54 years old male with past history of type 2 diabetes with neuropathy, hypertension, HLD, obesity, presented to the hospital with right foot pain. Patient presented with 5-6 days of swollen right foot with increased redness and pain. Patient stated that he hit his right foot against the door around 6 days prior to admission and after that he started h aving these symptoms. In ER patient was found to have leukocytosis of 26.5, hemoglobin 13.2, lactic acid 2.2, CRP 28.9, sedimentation rate 66. Foot x-ray showed Severe soft tissue swelling and subcutaneous air at the dorsal aspect of the foot especially at the 4th and 5th metatarsals highly suspicious for infection with gas-forming organism. He was admitted for gas gangrene of right foot. Diabetic right foot gas gangrene Right fifth toe with gangrene and osteomyelitis, necrosis of the soft tissues of the dorsum of foot also S/P Right foot fifth toe and metatarsal amputation incision and drainage on 12/22 then again Right foot incision and drainage/wound debridement including subcutaneous tissue on 12/[address] Rousseau Wound culture Strep agalactie On levofloaxin for total of 6 weeks started on 12/25, Estimated end date for t/t 02/05/20 Dr Massey for advanced wound care. pain controled with meloxicam, percocet and tramadol. Severe ANANYA with nocturnal hypoxia from nocturnal oximetry in hospital will need Sleep study after discharge Desaturates to 85% during sleep needing 3 L at night. DM sugars better controlled. Continue Levemir and lispro. Acute urinary retention probably has dm neuropathy failed trial of void continue david continue flomax. HTN continue ASA. Dyslipidemia statin Anxiety/Depression celexa Obesity BMI 39.1 VS,Fishbone, I+O VS, Fishbone, I+O Vital Signs Date Time Temp Pulse Resp B/P (MAP) Pulse Ox O2 Delivery O2 Flow Rate FiO2 01/07/20 09:27 17 01/07/20 06:00 98.2 69 128/74 (92) 96 Venturi Mask 4.0 01/07/20 04:20 23 I&O- Last 24 Hours up to 6 AM 01/07/20 05:59 Intake Total 580 ml Output Total 2900 ml Balance -2320 ml DAQUAN LUCERO MD Jan 07, 2020 10:53
[2020-01-07] MEDS: traMADol 50 MG TAB PO PRN (11:51)
[2020-01-07] MEDS: TAMSULOSIN 0.4 MG CAP PO SCH (21:48)
[2020-01-07] MEDS: ACETAMINOPHEN TAB 650MG DOSE (2X325MG) PO PRN (21:50)
[2020-01-08] MEDS: LevoFLOXacin 750 MG TABLET PO SCH (04:53)
[2020-01-08 06:00] VITALS: BP 142/82
[2020-01-08 07:32] LABS: HEMATOCRIT 34.4 % (42.0-52.0); HEMOGLOBIN 10.8 g/dl (13.5-17.5); MEAN CORPUSCULAR HEMOGLOBIN 27.8 pg (27.0-33.0); MEAN CORPUSCULAR HGB CONC 31.4 g/dl (32.0-36.5); MEAN CORPUSCULAR VOLUME 88.4 fl (80.0-96.0); PLATELET COUNT, AUTOMATED 324 10^3/uL (150-450); RED BLOOD COUNT 3.89 10^6/uL (4.30-6.10)
[2020-01-08 07:57] LABS: BLOOD UREA NITROGEN 28 MG/DL (7-18); CARBON DIOXIDE LEVEL 34 MEQ/L (21-32); CHLORIDE LEVEL 101 MEQ/L (98-107); CREATININE FOR GFR 0.87 MG/DL (0.70-1.30); GLOMERULAR FILTRATION RATE > 60.0 (>56); GLUCOSE, FASTING 169 MG/DL (70-100); POTASSIUM SERUM 4.8 MEQ/L (3.5-5.1); SODIUM LEVEL 138 MEQ/L (136-145)
[2020-01-08] MEDS: LEVEMIR (INSULIN DETEMIR) 1 UNITS/0.01ML SC SCH ×2 (08:12→20:43)
[2020-01-08] MEDS: HumaLOG INSULIN (NovoLOG) PER UNIT SC SCH ×4 (08:13→20:44)
[2020-01-08] MEDS: ASPIRIN 81 MG ENTERIC TAB PO SCH (08:13)
[2020-01-08] MEDS: MELOXICAM (MOBIC) 7.5 MG TAB PO SCH (08:13)
[2020-01-08] MEDS: DOCUSATE SODIUM 100 MG CAP PO SCH ×2 (08:13→20:44)
[2020-01-08] MEDS: PERCOCET 5MG/325MG TAB PO PRN ×3 (08:14→20:44)
[2020-01-08] MEDS: ATORVASTATIN 20 MG TAB PO SCH (08:14)
[2020-01-08] MEDS: SANTYL OINT 30GM TOP SCH (08:14)
[2020-01-08] MEDS: CitaloPRAM (CeleXA) 20 MG TAB PO SCH (08:14)
[2020-01-08 20:12] VITALS: BP 141/81
[2020-01-08] MEDS: TAMSULOSIN 0.4 MG CAP PO SCH (20:44)
[2020-01-08 21:00] VITALS: O2SAT 98
[2020-01-09 06:11] VITALS: BP 164/93
[2020-01-09] MEDS: LevoFLOXacin 750 MG TABLET PO SCH (06:15)
[2020-01-09] MEDS: CitaloPRAM (CeleXA) 20 MG TAB PO SCH (08:44)
[2020-01-09] MEDS: MELOXICAM (MOBIC) 7.5 MG TAB PO SCH (08:44)
[2020-01-09] MEDS: ATORVASTATIN 20 MG TAB PO SCH (08:44)
[2020-01-09] MEDS: ASPIRIN 81 MG ENTERIC TAB PO SCH (08:44)
[2020-01-09] MEDS: LEVEMIR (INSULIN DETEMIR) 1 UNITS/0.01ML SC SCH ×2 (08:45→21:46)
[2020-01-09] MEDS: HumaLOG INSULIN (NovoLOG) PER UNIT SC SCH ×4 (08:45→21:47)
[2020-01-09] MEDS: SANTYL OINT 30GM TOP SCH (08:45)
[2020-01-09] MEDS: DOCUSATE SODIUM 100 MG CAP PO SCH ×2 (08:45→21:47)
[2020-01-09] MEDS ORDERED: METO1TAB33 PO (12:34)
[2020-01-09] MEDS ORDERED: FLOM0.4C39 PO (12:34)
[2020-01-09] MEDS ORDERED: LISI40TA PO (12:34)
[2020-01-09] MEDS: lisinopriL 20 MG TAB PO SCH (12:46)
--- NOTE | 2020-01-09 14:22 | DS.PDOC ---
Discharge Summary General Date of Admission Dec 22, 2019 at 23:12 Date of Discharge 01/10/20 Discharge Summary PROCEDURES PERFORMED DURING STAY: Status post 5th toe and ray amputation 12/22 Incision and drainage 12/27 Lower extremity Angiogram with the following: Ultrasound-guided access left common femoral artery Aortoiliofemoral arteriogram Selection right superficial femoral artery and right lower extremity runoff Mynx closure left common femoral artery DISCHARGE DIAGNOSES: Diabetic Right foot gas gangrene Severe ANANYA with nocturnal hypoxia untreated at this time Acute urinary retention has indwelling david DM with neuropathy Obesity Hypertension HLD Anxiety and depression COMPLICATIONS/CHIEF COMPLAINT: Diabetic Foot Infection, Sepsis. HOSPITAL COURSE: Patient is 54 years old male with past history of type 2 diabetes with neuropathy, hypertension, HLD, obesity, presented to the hospital with right foot pain. Patient presented with 5-6 days of swollen right foot with increased redness and pain. Patient stated that he hit his right foot against the door around 6 days prior to admission and after that he started having these symptoms. In ER patient was found to have leukocytosis of 26.5, hemoglobin 13.2, lactic acid 2.2, CRP 28.9, sedimentation rate 66. Foot x-ray showed Severe soft tissue swelling and subcutaneous air at the dorsal aspect of the foot especially at the 4th and 5th metatarsals highly suspicious for infection with gas-forming organism. He was admitted for gas gangrene of right foot. Diabetic right foot gas gangrene Right fifth toe with gangrene and osteomyelitis, necrosis of the soft tissues of the dorsum of foot also S/P Right foot fifth toe and metatarsal amputation incision and drainage on 12/22 then again Right foot incision and drainage/wound debridement including subcutaneous tissue on 12/[address] Rousseau [facility]. Wound culture Strep agalactie On levofloaxin for total of 6 weeks started on 12/25, Estimated end date for t/t is 02/05/20 Dr Massey for advanced wound care. Pain controlled with meloxicam, percocet and tramadol. follow up with [facility] Had lower extremity arteriogram and the interpretation is 1. The distal aorta, common iliac arteries, hypogastric's, external iliac arteries are all widely patent. 2. The right common femoral arteries widely patent with excellent flow into widely patent profunda and superficial femoral artery which front-office without stenosis through the popliteal artery and then there is 3 vessel runoff to the foot. The peroneal artery is diminutive but is patent all the way to the ankle. The anterior tibial posterior tibial arteries are patent all the way with good pedal circulation around the entire foot. The flow to the foot is rapid. Needs tight sugar control, high protein diet, off loading and intermittent debridement by podiatry, if needed for wound healing. Has adequate blood supply to the foot. Bilateral heel floats. Severe ANANYA with nocturnal hypoxia untreated at this time from nocturnal oximetry in hospital will need Sleep study after discharge Desaturates to 85% during sleep needing 3 L at night. DM with neuropathy sugars better controlled. Continue Levemir and lispro. Acute urinary retention probably has dm neuropathy failed trial of void continue david continue flomax. HTN Had low normal BP initially so Bp meds were held restarted on lisinopril dose reduced from 40 mg to 20 mg restarted on metoprolol succinate lower dose down from 100 mg to 50 mg adjust dose as needed continue ASA Dyslipidemia statin Anxiety/Depression celexa Obesity BMI 39.1 DISCHARGE MEDICATIONS: Please see below. ALLERGIES: Please see below. PHYSICAL EXAMINATION ON DISCHARGE: VITAL SIGNS: Please see below. GEN: AAOx 3 , laying in bed in no distress. HEENT: NC/AT, moist mucus membranes, anicteric eyes, PERRL Neck: No JVD, No thyromegaly LUNGS: B/L vesicular breath sounds, symmetrical airentry, no wheezing or rales. HEART: no murmurs/rubs S1S2 RRR nondisplaced PMI ABD: obese soft NT ND , normal bowel sounds. EXT: right foot wound with granulation tissue with minimal necrotic tissue .No edema bilaterally SKIN: warm dry pink in color, well perfused. LABORATORY DATA: Please see below. ACTIVITY: [As tolerated]. DIET: Carb consistent DISCHARGE PLAN: STR. DISPOSITION: . DISCHARGE INSTRUCTIONS: Follow up with [facility] Follow up with Wound care Will need referral for Sleep study Referral to Urology for Acute on chronic urinary retention DISCHARGE CONDITION: [Stable]. TIME SPENT ON DISCHARGE: 35 minutes. Vital Signs/I&Os Vital Signs Date Time Temp Pulse Resp B/P (MAP) Pulse Ox O2 Delivery O2 Flow Rate FiO2 01/09/20 12:46 157/89 01/09/20 06:11 97.1 74 18 97 Room Air 11/5/20 21:00 3.0 01/08/20 21:00 23 I&O- Last 24 Hours up to 6 AM 01/09/20 06:00 Intake Total 1760 ml Output Total 1450 ml Balance 310 ml Laboratory Data Labs 24H Laboratory Tests 2 01/08/20 16:55: Bedside Glucose (Misc Panel) 217H 01/08/20 20:16: Bedside Glucose (Misc Panel) 212H 01/09/20 06:20: Bedside Glucose (Misc Panel) 173H 01/09/20 11:37: Bedside Glucose (Misc Panel) 252H FSBS Laboratory Tests Test 01/08/20 16:55 01/08/20 20:16 01/09/20 06:20 01/09/20 11:37 Range/Units Bedside Glucose (Misc Panel) 217 212 173 252 70-105 MG/DL Discharge Medications Scheduled Alogliptin Benzoate (Alogliptin) 25 Mg Tab, 25 MG PO DAILY, (Reported) Aspirin (Aspirin EC) 81 Mg Tablet.dr, 1 TAB PO DAILY, (Reported) Atorvastatin Calcium (Atorvastatin Calcium) 80 Mg Tab, 80 MG PO DAILY, (Reported) Cholecalciferol (Vitamin D3) (Vitamin D3) 125 Mcg Capsule, 125 MCG PO DAILY, (Reported) Citalopram Hydrobromide (Citalopram HBr) 20 Mg Tab, 20 MG PO DAILY, (Reported) Dulaglutide (Trulicity) 1.5 Mg/0.5 Ml Pen.injctr, 1.5 MG SQ 1XWK, (Reported) TAKES ON SUNDAY Insulin Glargine,Hum.rec.anlog (Basaglar Kwikpen U-100) 100 Unit/1 Ml Insuln.pen, 100 UNITS SQ DAILY, (Reported) Levofloxacin (Levofloxacin) 750 Mg Tablet, 750 MG PO DAILY@06 Lisinopril (Lisinopril) 40 Mg Tablet, 20 MG PO DAILY Meloxicam (Meloxicam) 15 Mg Tablet, 15 MG PO DAILY, (Reported) Metformin HCl (Metformin HCl) 1,000 Mg Tab, 1,000 MG PO BID, (Reported) Metoprolol Succinate (Metoprolol Succinate) 100 Mg Tab.er.24h, 50 MG PO DAILY Tamsulosin HCl (Flomax) 0.4 Mg Capsule, 0.4 MG PO QHS Scheduled PRN Cyclobenzaprine HCl (Cyclobenzaprine HCl) 10 Mg Tablet, 10 MG PO TID PRN for MUSCLE SPASMS, (Reported) Oxycodone/Acetaminophen (Oxycodone-Acetaminophen 5-325) 1 Each Tablet, 1 TAB PO Q4HP PRN for MODERATE PAIN (PS 5-7) Tramadol HCl (Tramadol HCl) 50 Mg Tablet, 50 MG PO Q4H PRN for PAIN, (Reported) Allergies Coded Allergies: No Known Allergies (Unverified , 02/10/17) DAQUAN LUCERO MD Jan 09, 2020 14:22
[2020-01-09] MEDS: PERCOCET 5MG/325MG TAB PO PRN ×2 (16:01→21:52)
[2020-01-09 19:47] VITALS: BP 130/69
[2020-01-09 21:00] VITALS: O2SAT 95
[2020-01-09] MEDS: TAMSULOSIN 0.4 MG CAP PO SCH (21:47)
[2020-01-10] MEDS: LevoFLOXacin 750 MG TABLET PO SCH (05:26)
[2020-01-10 05:54] VITALS: BP 122/73
[2020-01-10] MEDS: LEVEMIR (INSULIN DETEMIR) 1 UNITS/0.01ML SC SCH (07:43)
[2020-01-10] MEDS: ASPIRIN 81 MG ENTERIC TAB PO SCH (08:12)
[2020-01-10] MEDS: ATORVASTATIN 20 MG TAB PO SCH (08:12)
[2020-01-10] MEDS: HumaLOG INSULIN (NovoLOG) PER UNIT SC SCH (08:12)
[2020-01-10] MEDS: DOCUSATE SODIUM 100 MG CAP PO SCH (08:12)
[2020-01-10] MEDS: MELOXICAM (MOBIC) 7.5 MG TAB PO SCH (08:12)
[2020-01-10 08:13] VITALS: BP 142/90
[2020-01-10] MEDS: lisinopriL 20 MG TAB PO SCH (08:13)
[2020-01-10] MEDS: PERCOCET 5MG/325MG TAB PO PRN (08:13)
[2020-01-10] MEDS: CitaloPRAM (CeleXA) 20 MG TAB PO SCH (08:14)
--- NOTE | 2020-01-10 20:40 | IPNPDOC ---
Subjective Date Seen The patient was seen on 01/10/20. Subjective Chief Complaint/HPI No issues overnight. Patient going to be discharged to [facility] today. Objective Physical Examination General Exam: Positive: Alert, Cooperative, No Acute Distress Eye Exam: Positive: PERRLA, Conjunctiva & lids normal ENT Exam: Positive: Atraumatic, Mucous membr. moist/pink Neck Exam: Positive: Supple; Negative: JVD Chest Exam: Positive: Clear to auscultation, Normal air movement Heart Exam: Positive: Rate Normal, Regular Rhythm, Normal S1, Normal S2; Negative: Murmurs, Rubs Abdomen Exam: Positive: Normal bowel sounds, Soft; Negative: Tenderness, Hepatospenomegaly Extremity Exam: Positive: Other (foot in dressing with bilateral heel float boots. ) Neuro Exam: Positive: Normal Speech, Strength at 5/5 X4 ext, Cranial Nerves 3- 12 NL Psych Exam: Positive: Mental status NL, Memory Intact, Oriented x 3 Assessment /Plan Assessment Patient did well overnight. patient to be discharged to [facility] today. Plan/VTE VTE Prophylaxis Ordered?: Yes VS, I&O, 24H, [facility] Vital Signs/I&O Vital Signs Date Time Temp Pulse Resp B/P (MAP) Pulse Ox O2 Delivery O2 Flow Rate FiO2 01/10/20 08:13 142/90 01/10/20 08:13 19 01/10/20 05:54 96.6 66 94 Room Air 01/09/20 21:00 3.0 23 I&O- Last 24 Hours up to 6 AM 01/10/20 07:00 Intake Total 960 ml Output Total 1750 ml Balance -790 ml Laboratory Data 24H LABS Laboratory Tests 2 01/10/20 06:00: Bedside Glucose (Misc Panel) 140H DAQUAN LUCERO MD Jan 10, 2020 20:40
== END 2020-01-10 09:59 | DRG 710 ==
LOC: M ED 18:14 → M ED INP 23:12 → ENRESERV 23:31 → M MS5PR 12-23 00:42
PROVIDERS: ADMIT Internal Medicine; ATTEND Internal Medicine Nephrology
PROC: 0JBQ0ZZ Excision of Right Foot Subcutaneous Tissue and Fascia, Open Approach (ICD-10-PCS; 2019-12-23)
PROC: 0Y6X0Z0 Detachment at Right 5th Toe, Complete, Open Approach (ICD-10-PCS; principal; 2019-12-23 11:11)
PROC: 02HV33Z Insertion of Infusion Device into Superior Vena Cava, Percutaneous Approach (ICD-10-PCS; 2019-12-24)
PROC: B44FZZZ Ultrasonography of Right Lower Extremity Arteries (ICD-10-PCS; 2019-12-26)
PROC: B440ZZZ Ultrasonography of Abdominal Aorta (ICD-10-PCS; 2019-12-26)
PROC: 0JBQ0ZZ Excision of Right Foot Subcutaneous Tissue and Fascia, Open Approach (ICD-10-PCS; 2019-12-28)
DX: A41.9 Sepsis, unspecified organism (principal); A48.0 Gas gangrene; E11.621 Type 2 diabetes mellitus with foot ulcer; E11.52 Type 2 diabetes mellitus with diabetic peripheral angiopathy with gangrene; E11.628 Type 2 diabetes mellitus with other skin complications; E11.69 Type 2 diabetes mellitus with other specified complication; L97.513 Non-pressure chronic ulcer of other part of right foot with necrosis of muscle; L03.115 Cellulitis of right lower limb; E11.65 Type 2 diabetes mellitus with hyperglycemia; G47.33 Obstructive sleep apnea (adult) (pediatric); I10 Essential (primary) hypertension; Z79.82 Long term (current) use of aspirin; Z79.4 Long term (current) use of insulin; Z79.899 Other long term (current) drug therapy; Z79.1 Long term (current) use of non-steroidal anti-inflammatories (NSAID); E78.5 Hyperlipidemia, unspecified; Z20.828 Contact with and (suspected) exposure to other viral communicable diseases; I70.235 Atherosclerosis of native arteries of right leg with ulceration of other part of foot; F41.9 Anxiety disorder, unspecified; F32.9 Major depressive disorder, single episode, unspecified; E66.9 Obesity, unspecified; Z68.39 Body mass index [BMI] 39.0-39.9, adult; M86.9 Osteomyelitis, unspecified

== ENCOUNTER → 2022-03-08 | Outpatient (REF) | payer OTHER ==
[~2022-03-08] MED LIST changes: +ADME100I SC; +AMOX875T2 PO; +ASPI81TA26 PO; +BASA100I SQ; +CHOL50003 PO; +CYCL-707 PO; +FLOM0.4C39 PO; -GLYB5TA PO; +GLYB5TAB6 PO; +HYDR-3713; +LEVO1TAB40 PO; +LISI10TA22 PO; +LISI40TA4 PO; +MELO15TA28 PO; +METO1TAB33 PO; +PERCOCET PO; +TRAM50TA2 PO; +TRAZ-252 PO; +TRUL0.5I SQ
[2022-03-08 13:36] LABS: HEMOGLOBIN A1c 11.2 % (4.0-6.0)
[2022-03-08 13:40] LABS: ALBUMIN 3.8 G/DL (3.2-5.2); ALKALINE PHOSPHATASE 82 U/L (46-116); ALT/SGPT 30 U/L (7.0-40); AST/SGOT 29 U/L (<34); BILIRUBIN,TOTAL 0.8 MG/DL (0.3-1.2); BLOOD UREA NITROGEN 16 MG/DL (9-23); CALCIUM LEVEL 9.4 MG/DL (8.5-10.1); CARBON DIOXIDE LEVEL 29 MMOL/L (20-31); CHLORIDE LEVEL 98 MMOL/L (98-107); CHOLESTEROL LEVEL 87 MG/DL (<200); CHOLESTEROL RISK RATIO 2.68 (<5); GLOMERULAR FILTRATION RATE > 60.0 (>56); GLUCOSE, FASTING 191 MG/DL (60-100); HDL CHOLESTEROL 32.4 MG/DL (>40); LDL CHOLESTEROL 32.8 MG/DL (<100); NON-HDL-C 55 MG/DL; POTASSIUM SERUM 4.6 MMOL/L (3.5-5.1); SODIUM LEVEL 141 MMOL/L (136-145); TOTAL PROTEIN 6.8 G/DL (5.7-8.2); TRIGLYCERIDES LEVEL 109 MG/DL (<150)
[2022-03-08 13:41] LABS: THYROID STIMULATING HORMONE 3.223 uIU/ML (0.55-4.78)
== END ==
LOC: M LAB REF 12:35
PROVIDERS: ATTEND Family Medicine Addiction Medicine
DX: E11.622 Type 2 diabetes mellitus with other skin ulcer (principal)

== ENCOUNTER → 2022-07-26 | Outpatient (REF) | payer OTHER ==
[2022-07-26 13:29] LABS: THYROID STIMULATING HORMONE 3.932 uIU/ML (0.55-4.78)
[2022-07-26 13:30] LABS: ALBUMIN 3.6 G/DL (3.2-5.2); ALKALINE PHOSPHATASE 70 U/L (46-116); ALT/SGPT 34 U/L (7.0-40); AST/SGOT 27 U/L (<34); BILIRUBIN,TOTAL 0.6 MG/DL (0.3-1.2); BLOOD UREA NITROGEN 15 MG/DL (9-23); CALCIUM LEVEL 8.4 MG/DL (8.5-10.1); CARBON DIOXIDE LEVEL 29 MMOL/L (20-31); CHLORIDE LEVEL 103 MMOL/L (98-107); CHOLESTEROL LEVEL 83 MG/DL (<200); CREATININE FOR GFR 0.74 MG/DL (0.70-1.30); GLOMERULAR FILTRATION RATE > 60.0 (>56); GLUCOSE, FASTING 132 MG/DL (60-100); HDL CHOLESTEROL 34.5 MG/DL (>40); LDL CHOLESTEROL 31.9 MG/DL (<100); NON-HDL-C 48.5 MG/DL; POTASSIUM SERUM 3.4 MMOL/L (3.5-5.1); SODIUM LEVEL 142 MMOL/L (136-145); TOTAL PROTEIN 6.5 G/DL (5.7-8.2); TRIGLYCERIDES LEVEL 83 MG/DL (<150)
[2022-07-26 13:38] LABS: HEMOGLOBIN A1c 13.2 % (4.0-6.0)
== END ==
LOC: M LAB REF 12:26
PROVIDERS: ATTEND Family Medicine Addiction Medicine
DX: E11.65 Type 2 diabetes mellitus with hyperglycemia (principal)

== ENCOUNTER → 2022-09-20 | Outpatient (REF) | payer OTHER ==
[2022-09-20 14:07] LABS: HEMOGLOBIN A1c 12.4 % (4.0-6.0)
[2022-09-20 14:12] LABS: ALBUMIN 4.2 G/DL (3.2-5.2); ALKALINE PHOSPHATASE 93 U/L (46-116); ALT/SGPT 34 U/L (7.0-40); AST/SGOT 17 U/L (<34); BILIRUBIN,TOTAL 0.8 MG/DL (0.3-1.2); BLOOD UREA NITROGEN 14 MG/DL (9-23); CALCIUM LEVEL 9.8 MG/DL (8.5-10.1); CARBON DIOXIDE LEVEL 28 MMOL/L (20-31); CHLORIDE LEVEL 100 MMOL/L (98-107); CHOLESTEROL LEVEL 137 MG/DL (<200); CHOLESTEROL RISK RATIO 3.66 (<5); CREATININE FOR GFR 0.75 MG/DL (0.70-1.30); GLOMERULAR FILTRATION RATE > 60.0 (>56); GLUCOSE, FASTING 279 MG/DL (60-100); HDL CHOLESTEROL 37.4 MG/DL (>40); NON-HDL-C 99.6 MG/DL; POTASSIUM SERUM 4.8 MMOL/L (3.5-5.1); SODIUM LEVEL 138 MMOL/L (136-145); TOTAL PROTEIN 7.4 G/DL (5.7-8.2); TRIGLYCERIDES LEVEL 123 MG/DL (<150)
[2022-09-20 14:15] LABS: THYROID STIMULATING HORMONE 2.149 uIU/ML (0.55-4.78)
== END ==
LOC: M LAB REF 11:32
PROVIDERS: ATTEND Family Medicine Addiction Medicine
DX: E11.69 Type 2 diabetes mellitus with other specified complication (principal)

== ENCOUNTER → 2022-12-26 | Outpatient (REF) | payer OTHER ==
[2022-12-26 13:22] LABS: HEMOGLOBIN A1c 9.8 % (4.0-6.0)
[2022-12-26 13:46] LABS: ALBUMIN 4.2 G/DL (3.2-5.2); ALKALINE PHOSPHATASE 83 U/L (46-116); ALT/SGPT 37 U/L (7.0-40); AST/SGOT 25 U/L (<34); BILIRUBIN,TOTAL 0.9 MG/DL (0.3-1.2); BLOOD UREA NITROGEN 20 MG/DL (9-23); CALCIUM LEVEL 9.5 MG/DL (8.5-10.1); CARBON DIOXIDE LEVEL 30 MMOL/L (20-31); CHLORIDE LEVEL 104 MMOL/L (98-107); CHOLESTEROL LEVEL 99 MG/DL (<200); CHOLESTEROL RISK RATIO 2.71 (<5); CREATININE FOR GFR 0.78 MG/DL (0.70-1.30); GLOMERULAR FILTRATION RATE > 60.0 (>56); GLUCOSE, FASTING 228 MG/DL (60-100); HDL CHOLESTEROL 36.5 MG/DL (>40); LDL CHOLESTEROL 42.3 MG/DL (<100); NON-HDL-C 62.5 MG/DL; POTASSIUM SERUM 4.2 MMOL/L (3.5-5.1); SODIUM LEVEL 141 MMOL/L (136-145); TOTAL PROTEIN 7.3 G/DL (5.7-8.2); TRIGLYCERIDES LEVEL 101 MG/DL (<150)
[2022-12-26 13:47] LABS: THYROID STIMULATING HORMONE 2.534 uIU/ML (0.55-4.78)
== END ==
LOC: M LAB REF 12:21
PROVIDERS: ATTEND Family Medicine Addiction Medicine
DX: E11.65 Type 2 diabetes mellitus with hyperglycemia (principal)

== ENCOUNTER 2023-09-03 20:09 | Inpatient (IN) | payer OTHER ==
[~2023-09-03] VITALS: Ht 170.2 cm; Wt 102.3 kg
[2023-09-04] MEDS: methylPREDNISolone 125MG 2ML VIAL IM ONE (03:56)
[2023-09-04] MEDS: diazePAM 10MG/2ML SYRINGE IM ONE (03:56)
[2023-09-04] MEDS: KETOROLAC 30 MG/ML 1ML VIAL IV ONE (07:33)
[2023-09-04] MEDS ORDERED: HYDR-3713 PO (08:36)
[2023-09-04] MEDS ORDERED: AMLO1TAB25 PO (08:36)
[2023-09-04] MEDS ORDERED: HOME MED LIST COMPLETE! XX SCH (08:40)
[2023-09-04] MEDS ORDERED: ADME100I SC (08:40)
[2023-09-04] MEDS ORDERED: OMEP-173 PO ×2 (08:40)
[2023-09-04] MEDS: ATORVASTATIN 20 MG TAB PO SCH (09:00)
[2023-09-04] MEDS: lisinopriL 40MG TAB PO SCH (09:00)
[2023-09-04] MEDS: OMEPRAZOLE 20MG CAP PO SCH (09:00)
[2023-09-04] MEDS ORDERED: MORPHINE 2 MG/ML 1ML VIAL As Ordered ONE (11:45)
[2023-09-04] MEDS: MORPHINE 2 MG/ML 1ML VIAL IV PRN (13:04)
[2023-09-04 15:14] LABS: BASO % 0.1 % (0.0-1.0); HEMATOCRIT 48.2 % (42.0-52.0); HEMOGLOBIN 16.5 g/dl (13.5-17.5); LYMPH # 1.5 10^3/uL (1.5-5.0); LYMPH % 13.6 % (24.0-44.0); MEAN CORPUSCULAR HEMOGLOBIN 28.8 pg (27.0-33.0); MEAN CORPUSCULAR HGB CONC 34.2 g/dl (32.0-36.5); MEAN CORPUSCULAR VOLUME 84.1 fl (80.0-96.0); MONO # 0.2 10^3/uL (0.0-0.8); MONO % 1.8 % (2.0-8.0); NEUTROPHILS # 9.1 10^3/uL (1.5-8.5); NEUTROPHILS % 83.9 % (36.0-66.0); PLATELET COUNT, AUTOMATED 184 10^3/uL (150-450); RED BLOOD COUNT 5.73 10^6/uL (4.30-6.10); WHITE BLOOD COUNT 10.8 10^3/uL (4.0-10.0)
[2023-09-04 15:27] LABS: INR 1.07; PROTHROMBIN TIME 13.5 SECONDS (12.5-14.5)
[2023-09-04 15:34] LABS: BLOOD UREA NITROGEN 34 MG/DL (9-23); CALCIUM LEVEL 9.1 MG/DL (8.5-10.1); CARBON DIOXIDE LEVEL 22 MMOL/L (20-31); CHLORIDE LEVEL 102 MMOL/L (98-107); CREATININE FOR GFR 1.08 MG/DL (0.70-1.30); GLOMERULAR FILTRATION RATE > 60.0 (>56); GLUCOSE, FASTING 361 MG/DL (60-100); POTASSIUM SERUM 4.7 MMOL/L (3.5-5.1); SODIUM LEVEL 137 MMOL/L (136-145)
[2023-09-04] MEDS ORDERED: GLUCOSE 4 GM CHEW PO PRN (17:00)
[2023-09-04] MEDS ORDERED: DEXTROSE 50% 50ML SYRINGE IV PRN (17:00)
[2023-09-04] MEDS ORDERED: GLUCAGON INJ 1MG VIAL SC PRN (17:00)
[2023-09-04] MEDS: NS 1,000 ML IV ONE (17:25)
[2023-09-04] MEDS: INSULIN LISPRO (NovoLOG) PER UNIT SC SCH ×2 (18:35→20:46)
[2023-09-04] MEDS: ASPIRIN 81MG ENTERIC TABLET PO SCH (18:35)
[2023-09-04 20:30] VITALS: BP 124/67; TEMP 97.4; O2SAT 95
[2023-09-04] MEDS: GABAPENTIN 100 MG CAP PO SCH (20:46)
[2023-09-04] MEDS: traZODone 50 MG TAB PO SCH (20:47)
[2023-09-04] MEDS: LEVEMIR (INSULIN DETEMIR) 1 UNITS/0.01ML SC SCH (20:47)
[2023-09-04 21:14] LABS: BASO % 0.1 % (0.0-1.0); HEMATOCRIT 44.3 % (42.0-52.0); LYMPH # 1.5 10^3/uL (1.5-5.0); LYMPH % 11.5 % (24.0-44.0); MEAN CORPUSCULAR HEMOGLOBIN 28.5 pg (27.0-33.0); MEAN CORPUSCULAR HGB CONC 33.9 g/dl (32.0-36.5); MEAN CORPUSCULAR VOLUME 84.2 fl (80.0-96.0); MONO # 0.9 10^3/uL (0.0-0.8); NEUTROPHILS # 10.6 10^3/uL (1.5-8.5); NEUTROPHILS % 81.1 % (36.0-66.0); PLATELET COUNT, AUTOMATED 190 10^3/uL (150-450); RED BLOOD COUNT 5.26 10^6/uL (4.30-6.10)
[2023-09-04 21:46] LABS: BLOOD UREA NITROGEN 38 MG/DL (9-23); CALCIUM LEVEL 8.6 MG/DL (8.5-10.1); CARBON DIOXIDE LEVEL 26 MMOL/L (20-31); CHLORIDE LEVEL 102 MMOL/L (98-107); CREATININE FOR GFR 1.22 MG/DL (0.70-1.30); GLOMERULAR FILTRATION RATE > 60.0 (>56); GLUCOSE, FASTING 397 MG/DL (60-100); POTASSIUM SERUM 4.3 MMOL/L (3.5-5.1); SODIUM LEVEL 137 MMOL/L (136-145)
[2023-09-04 21:48] LABS: THYROID STIMULATING HORMONE 0.191 uIU/ML (0.55-4.78); VITAMIN B12 LEVEL 266 PG/ML (211-911)
[2023-09-04] MEDS: NYSTATIN 100,000 UNITS/GM TOPICAL PWD 15GM TOP SCH (23:01)
[2023-09-05] VITALS (10 sets, daily range): BP systolic 92–140; BP diastolic 53–73; TEMP 96.8–98.9; O2SAT 91–100
[2023-09-05 06:48] LABS: CHOLESTEROL RISK RATIO 3.72 (<5); LDL CHOLESTEROL 60.4 MG/DL (<100)
[2023-09-05] MEDS: ENOXAPARIN 40MG/0.4ML SYRINGE (J1650 PER 10MG) SC SCH (09:31)
[2023-09-05] MEDS: INSULIN LISPRO (NovoLOG) PER UNIT SC SCH (09:32)
[2023-09-05 11:38] LABS: BASO # 0.1 10^3/uL (0.0-0.2); BASO % 0.4 % (0.0-1.0); EOS # 0.1 10^3/uL (0.0-0.5); EOS % 0.7 % (0.0-3.0); HEMATOCRIT 44.5 % (42.0-52.0); HEMOGLOBIN 15.3 g/dl (13.5-17.5); LYMPH # 2.9 10^3/uL (1.5-5.0); MEAN CORPUSCULAR HEMOGLOBIN 29.3 pg (27.0-33.0); MEAN CORPUSCULAR HGB CONC 34.4 g/dl (32.0-36.5); MEAN CORPUSCULAR VOLUME 85.1 fl (80.0-96.0); MONO % 7.5 % (2.0-8.0); NEUTROPHILS # 9.7 10^3/uL (1.5-8.5); PLATELET COUNT, AUTOMATED 190 10^3/uL (150-450); RED BLOOD COUNT 5.23 10^6/uL (4.30-6.10); WHITE BLOOD COUNT 13.8 10^3/uL (4.0-10.0)
[2023-09-05 12:11] LABS: BLOOD UREA NITROGEN 42 MG/DL (9-23); CALCIUM LEVEL 9.1 MG/DL (8.5-10.1); CARBON DIOXIDE LEVEL 26 MMOL/L (20-31); CHLORIDE LEVEL 104 MMOL/L (98-107); CREATININE FOR GFR 0.88 MG/DL (0.70-1.30); GLOMERULAR FILTRATION RATE > 60.0 (>56); GLUCOSE, FASTING 286 MG/DL (60-100); POTASSIUM SERUM 4.1 MMOL/L (3.5-5.1); SODIUM LEVEL 137 MMOL/L (136-145)
[2023-09-05] MEDS: LEVEMIR (INSULIN DETEMIR) 1 UNITS/0.01ML SC SCH (20:12)
[2023-09-06 04:34] VITALS: BP 112/62; TEMP 97.7; O2SAT 97
[2023-09-06] MEDS: NORCO, ANEXSIA 5/325MG TABLET (HYDROcodone/ACETAMINOPHEN) PO PRN (04:36)
[2023-09-06 07:06] LABS: BASO # 0.1 10^3/uL (0.0-0.2); BASO % 0.5 % (0.0-1.0); EOS # 0.1 10^3/uL (0.0-0.5); EOS % 1.2 % (0.0-3.0); HEMATOCRIT 42.5 % (42.0-52.0); LYMPH # 3.1 10^3/uL (1.5-5.0); LYMPH % 28.7 % (24.0-44.0); MEAN CORPUSCULAR HEMOGLOBIN 28.6 pg (27.0-33.0); MEAN CORPUSCULAR HGB CONC 32.9 g/dl (32.0-36.5); MEAN CORPUSCULAR VOLUME 86.9 fl (80.0-96.0); MONO % 9.2 % (2.0-8.0); NEUTROPHILS # 6.4 10^3/uL (1.5-8.5); PLATELET COUNT, AUTOMATED 166 10^3/uL (150-450); RED BLOOD COUNT 4.89 10^6/uL (4.30-6.10); WHITE BLOOD COUNT 10.6 10^3/uL (4.0-10.0)
[2023-09-06 12:00] VITALS: BP 108/83; TEMP 97.9; O2SAT 95
[2023-09-06] MEDS: INSULIN LISPRO (NovoLOG) PER UNIT SC SCH (12:23)
[2023-09-06 20:50] VITALS: BP 105/61; TEMP 97.3; O2SAT 95
[2023-09-07 03:30] VITALS: BP 106/63; TEMP 97.9; O2SAT 95
[2023-09-07 12:00] VITALS: BP 98/62; TEMP 98.1; O2SAT 95
[2023-09-07] MEDS ORDERED: GABAPENTIN 100 MG CAP PO SCH (16:00)
[2023-09-07] MEDS: GABAPENTIN 300 MG CAP PO SCH (16:30)
[2023-09-07] MEDS: LEVEMIR (INSULIN DETEMIR) 1 UNITS/0.01ML SC SCH (21:27)
[2023-09-07 21:30] VITALS: BP 106/66; TEMP 97.3; O2SAT 97
[2023-09-08 03:00] VITALS: BP 119/77; TEMP 97.5; O2SAT 93
[2023-09-08] MEDS: INSULIN LISPRO (NovoLOG) PER UNIT SC SCH (07:47)
[2023-09-08] MEDS: DOCUSATE SODIUM 100MG CAPSULE PO SCH (09:27)
[2023-09-08] MEDS: MIRALAX *UNIT DOSE* 17GM PACKET PO SCH (09:27)
[2023-09-08 12:00] VITALS: BP 100/72; TEMP 97.9; O2SAT 95
[2023-09-08 20:00] VITALS: BP 101/68; TEMP 97.9; O2SAT 94
[2023-09-09 04:00] VITALS: BP 137/78; TEMP 97.7; O2SAT 96
[2023-09-09] MEDS: SENOKOT S TAB PO SCH (08:22)
[2023-09-09] MEDS: LEVEMIR (INSULIN DETEMIR) 1 UNITS/0.01ML SC SCH (08:24)
[2023-09-09] MEDS: INSULIN LISPRO (NovoLOG) PER UNIT SC SCH (08:25)
[2023-09-09 12:00] VITALS: BP 134/79; TEMP 97.3; O2SAT 93
[2023-09-09 18:51] VITALS: BP 120/83; TEMP 97.8; O2SAT 94
[2023-09-09 21:15] VITALS: BP 107/64; TEMP 97.9; O2SAT 93
[2023-09-10 03:40] VITALS: BP 98/58; TEMP 97.2; O2SAT 98
[2023-09-10 12:00] VITALS: BP 104/82; TEMP 97.9; O2SAT 93
[2023-09-10] MEDS: INSULIN LISPRO (NovoLOG) PER UNIT SC SCH (12:15)
[2023-09-10] MEDS: NORCO, ANEXSIA 5/325MG TABLET (HYDROcodone/ACETAMINOPHEN) PO PRN (14:09)
[2023-09-10 20:00] VITALS: BP 104/82; TEMP 97.9; O2SAT 93
[2023-09-10] MEDS: LEVEMIR (INSULIN DETEMIR) 1 UNITS/0.01ML SC SCH (21:35)
[2023-09-10 22:09] VITALS: TEMP 97.9
[2023-09-10 22:31] LABS: BASO # 0.1 10^3/uL (0.0-0.2); BASO % 0.7 % (0.0-1.0); EOS # 0.3 10^3/uL (0.0-0.5); EOS % 2.9 % (0.0-3.0); HEMATOCRIT 38.2 % (42.0-52.0); HEMOGLOBIN 12.7 g/dl (13.5-17.5); LYMPH # 3.2 10^3/uL (1.5-5.0); MEAN CORPUSCULAR HEMOGLOBIN 29.1 pg (27.0-33.0); MEAN CORPUSCULAR HGB CONC 33.2 g/dl (32.0-36.5); MEAN CORPUSCULAR VOLUME 87.6 fl (80.0-96.0); MONO # 0.9 10^3/uL (0.0-0.8); NEUTROPHILS # 4.2 10^3/uL (1.5-8.5); NEUTROPHILS % 49.1 % (36.0-66.0); PLATELET COUNT, AUTOMATED 167 10^3/uL (150-450); RED BLOOD COUNT 4.36 10^6/uL (4.30-6.10); WHITE BLOOD COUNT 8.6 10^3/uL (4.0-10.0)
[2023-09-10 22:57] LABS: ALBUMIN 2.9 G/DL (3.2-5.2); ALKALINE PHOSPHATASE 52 U/L (46-116); ALT/SGPT 42 U/L (7.0-40); AST/SGOT 37 U/L (<34); BILIRUBIN,TOTAL 0.3 MG/DL (0.3-1.2); BLOOD UREA NITROGEN 45 MG/DL (9-23); CALCIUM LEVEL 8.5 MG/DL (8.5-10.1); CARBON DIOXIDE LEVEL 25 MMOL/L (20-31); CHLORIDE LEVEL 104 MMOL/L (98-107); CREATININE FOR GFR 0.77 MG/DL (0.70-1.30); GLOMERULAR FILTRATION RATE > 60.0 (>56); GLUCOSE, FASTING 379 MG/DL (60-100); MAGNESIUM LEVEL 1.3 MG/DL (1.8-2.4); POTASSIUM SERUM 5.2 MMOL/L (3.5-5.1); SODIUM LEVEL 134 MMOL/L (136-145); TOTAL PROTEIN 5.3 G/DL (5.7-8.2)
[2023-09-11] MEDS: NS 1,000 ML IV ONE (00:51)
[2023-09-11] MEDS: MAGNESIUM OXIDE 400MG TAB (MAG-OX) PO ONE (00:51)
[2023-09-11] MEDS: MAG SULF 1GM/100ML (MAG RUN) 1 GM in IV 1 EA IV SCH (00:52)
[2023-09-11 02:53] VITALS: BP 106/64
[2023-09-11 04:00] VITALS: BP 109/64; TEMP 97.2; O2SAT 99
[2023-09-11 08:39] LABS: BASO # 0.1 10^3/uL (0.0-0.2); BASO % 0.8 % (0.0-1.0); EOS # 0.2 10^3/uL (0.0-0.5); EOS % 3.1 % (0.0-3.0); HEMATOCRIT 41.9 % (42.0-52.0); HEMOGLOBIN 13.6 g/dl (13.5-17.5); LYMPH # 2.6 10^3/uL (1.5-5.0); LYMPH % 34.1 % (24.0-44.0); MEAN CORPUSCULAR HEMOGLOBIN 28.6 pg (27.0-33.0); MEAN CORPUSCULAR HGB CONC 32.5 g/dl (32.0-36.5); MONO # 0.8 10^3/uL (0.0-0.8); MONO % 10.4 % (2.0-8.0); NEUTROPHILS # 3.8 10^3/uL (1.5-8.5); NEUTROPHILS % 50.9 % (36.0-66.0); PLATELET COUNT, AUTOMATED 153 10^3/uL (150-450); RED BLOOD COUNT 4.76 10^6/uL (4.30-6.10); WHITE BLOOD COUNT 7.5 10^3/uL (4.0-10.0)
[2023-09-11 08:57] LABS: ALBUMIN 3.3 G/DL (3.2-5.2); ALKALINE PHOSPHATASE 55 U/L (46-116); ALT/SGPT 44 U/L (7.0-40); AST/SGOT 37 U/L (<34); BILIRUBIN,TOTAL 0.4 MG/DL (0.3-1.2); BLOOD UREA NITROGEN 40 MG/DL (9-23); CALCIUM LEVEL 8.7 MG/DL (8.5-10.1); CARBON DIOXIDE LEVEL 29 MMOL/L (20-31); CHLORIDE LEVEL 103 MMOL/L (98-107); CREATININE FOR GFR 0.72 MG/DL (0.70-1.30); GLOMERULAR FILTRATION RATE > 60.0 (>56); GLUCOSE, FASTING 225 MG/DL (60-100); MAGNESIUM LEVEL 1.8 MG/DL (1.8-2.4); POTASSIUM SERUM 5.5 MMOL/L (3.5-5.1); SODIUM LEVEL 135 MMOL/L (136-145)
[2023-09-11] MEDS: NS 1,000 ML IV SCH (10:49)
[2023-09-11 12:00] VITALS: BP 116/67; TEMP 97.9; O2SAT 94
[2023-09-11] MEDS: SOD POLYSTYRENE SULFONATE SUSP 15GM 60ML UD PO ONE (13:02)
[2023-09-11 20:00] VITALS: BP 97/70; TEMP 97.9; O2SAT 93
[2023-09-12 04:00] VITALS: BP 128/76; TEMP 97.7; O2SAT 95
[2023-09-12 06:09] LABS: BASO # 0.1 10^3/uL (0.0-0.2); EOS # 0.3 10^3/uL (0.0-0.5); EOS % 3.5 % (0.0-3.0); HEMATOCRIT 38.6 % (42.0-52.0); HEMOGLOBIN 12.6 g/dl (13.5-17.5); LYMPH # 2.5 10^3/uL (1.5-5.0); MEAN CORPUSCULAR HEMOGLOBIN 28.4 pg (27.0-33.0); MEAN CORPUSCULAR HGB CONC 32.6 g/dl (32.0-36.5); MEAN CORPUSCULAR VOLUME 87.1 fl (80.0-96.0); MONO # 0.7 10^3/uL (0.0-0.8); MONO % 10.3 % (2.0-8.0); NEUTROPHILS # 3.6 10^3/uL (1.5-8.5); NEUTROPHILS % 49.8 % (36.0-66.0); PLATELET COUNT, AUTOMATED 148 10^3/uL (150-450); RED BLOOD COUNT 4.43 10^6/uL (4.30-6.10); WHITE BLOOD COUNT 7.2 10^3/uL (4.0-10.0)
[2023-09-12 06:36] LABS: ALKALINE PHOSPHATASE 50 U/L (46-116); ALT/SGPT 38 U/L (7.0-40); AST/SGOT 25 U/L (<34); BILIRUBIN,TOTAL 0.4 MG/DL (0.3-1.2); BLOOD UREA NITROGEN 34 MG/DL (9-23); CALCIUM LEVEL 8.5 MG/DL (8.5-10.1); CARBON DIOXIDE LEVEL 28 MMOL/L (20-31); CHLORIDE LEVEL 107 MMOL/L (98-107); GLOMERULAR FILTRATION RATE > 60.0 (>56); GLUCOSE, FASTING 178 MG/DL (60-100); MAGNESIUM LEVEL 1.6 MG/DL (1.8-2.4); POTASSIUM SERUM 4.9 MMOL/L (3.5-5.1); SODIUM LEVEL 139 MMOL/L (136-145); TOTAL PROTEIN 5.5 G/DL (5.7-8.2)
[2023-09-12 11:19] VITALS: BP 131/94
[2023-09-12 12:00] VITALS: BP 140/56; TEMP 98.1; O2SAT 99
[2023-09-12 19:31] VITALS: BP 128/64; TEMP 97.5; O2SAT 93
[2023-09-13 04:00] VITALS: BP 127/75; TEMP 97.7; O2SAT 96
[2023-09-13 06:04] LABS: BASO % 0.6 % (0.0-1.0); EOS # 0.2 10^3/uL (0.0-0.5); EOS % 3.2 % (0.0-3.0); HEMATOCRIT 38.4 % (42.0-52.0); HEMOGLOBIN 12.2 g/dl (13.5-17.5); LYMPH # 2.4 10^3/uL (1.5-5.0); LYMPH % 35.3 % (24.0-44.0); MEAN CORPUSCULAR HEMOGLOBIN 28.2 pg (27.0-33.0); MEAN CORPUSCULAR HGB CONC 31.8 g/dl (32.0-36.5); MEAN CORPUSCULAR VOLUME 88.7 fl (80.0-96.0); MONO # 0.8 10^3/uL (0.0-0.8); NEUTROPHILS # 3.4 10^3/uL (1.5-8.5); NEUTROPHILS % 48.5 % (36.0-66.0); PLATELET COUNT, AUTOMATED 161 10^3/uL (150-450); RED BLOOD COUNT 4.33 10^6/uL (4.30-6.10); WHITE BLOOD COUNT 6.9 10^3/uL (4.0-10.0)
[2023-09-13 06:32] LABS: ALBUMIN 3.1 G/DL (3.2-5.2); ALKALINE PHOSPHATASE 53 U/L (46-116); ALT/SGPT 37 U/L (7.0-40); AST/SGOT 21 U/L (<34); BILIRUBIN,TOTAL 0.3 MG/DL (0.3-1.2); BLOOD UREA NITROGEN 26 MG/DL (9-23); CALCIUM LEVEL 8.9 MG/DL (8.5-10.1); CARBON DIOXIDE LEVEL 30 MMOL/L (20-31); CHLORIDE LEVEL 106 MMOL/L (98-107); CREATININE FOR GFR 0.72 MG/DL (0.70-1.30); GLOMERULAR FILTRATION RATE > 60.0 (>56); GLUCOSE, FASTING 181 MG/DL (60-100); MAGNESIUM LEVEL 1.4 MG/DL (1.8-2.4); POTASSIUM SERUM 4.6 MMOL/L (3.5-5.1); SODIUM LEVEL 140 MMOL/L (136-145); TOTAL PROTEIN 5.7 G/DL (5.7-8.2)
[2023-09-13] MEDS: MAG SULF 1GM/100ML (MAG RUN) 1 GM in IV 1 EA IV SCH (07:35)
[2023-09-13 11:25] VITALS: BP 164/82
[2023-09-13 12:00] VITALS: BP 160/86; TEMP 97.5; O2SAT 94
[2023-09-13] MEDS: amLODIPine 5 MG TAB PO ONE (13:23)
[2023-09-13 20:00] VITALS: BP 123/69; TEMP 97.5; O2SAT 95
[2023-09-13] MEDS: KETOROLAC 30 MG/ML 1ML VIAL IV ONE (22:44)
[2023-09-14 04:00] VITALS: BP 141/80; TEMP 97.3; O2SAT 96
[2023-09-14 06:06] LABS: BASO # 0.1 10^3/uL (0.0-0.2); BASO % 0.7 % (0.0-1.0); EOS # 0.2 10^3/uL (0.0-0.5); EOS % 3.1 % (0.0-3.0); HEMATOCRIT 38.4 % (42.0-52.0); HEMOGLOBIN 12.5 g/dl (13.5-17.5); LYMPH # 2.2 10^3/uL (1.5-5.0); LYMPH % 32.7 % (24.0-44.0); MEAN CORPUSCULAR HEMOGLOBIN 28.4 pg (27.0-33.0); MEAN CORPUSCULAR HGB CONC 32.6 g/dl (32.0-36.5); MEAN CORPUSCULAR VOLUME 87.3 fl (80.0-96.0); MONO # 0.8 10^3/uL (0.0-0.8); MONO % 11.6 % (2.0-8.0); NEUTROPHILS # 3.4 10^3/uL (1.5-8.5); NEUTROPHILS % 51.2 % (36.0-66.0); PLATELET COUNT, AUTOMATED 162 10^3/uL (150-450); WHITE BLOOD COUNT 6.7 10^3/uL (4.0-10.0)
[2023-09-14 06:35] LABS: ALBUMIN 3.1 G/DL (3.2-5.2); ALKALINE PHOSPHATASE 50 U/L (46-116); ALT/SGPT 38 U/L (7.0-40); AST/SGOT 24 U/L (<34); BILIRUBIN,TOTAL 0.3 MG/DL (0.3-1.2); BLOOD UREA NITROGEN 30 MG/DL (9-23); CALCIUM LEVEL 8.6 MG/DL (8.5-10.1); CARBON DIOXIDE LEVEL 29 MMOL/L (20-31); CHLORIDE LEVEL 104 MMOL/L (98-107); CREATININE FOR GFR 0.73 MG/DL (0.70-1.30); GLOMERULAR FILTRATION RATE > 60.0 (>56); GLUCOSE, FASTING 152 MG/DL (60-100); MAGNESIUM LEVEL 1.7 MG/DL (1.8-2.4); POTASSIUM SERUM 4.7 MMOL/L (3.5-5.1); SODIUM LEVEL 138 MMOL/L (136-145); TOTAL PROTEIN 5.5 G/DL (5.7-8.2)
[2023-09-14] MEDS ORDERED: GABA-282 PO (08:44)
[2023-09-14] MEDS ORDERED: ASPI81TAEC PO (08:44)
[2023-09-14] MEDS ORDERED: AMLO1TAB24 PO (08:44)
[2023-09-14] MEDS: MAG SULF 1GM/100ML (MAG RUN) 1 GM in IV 1 EA IV ONE (09:04)
[2023-09-14 09:06] VITALS: BP 141/80
[2023-09-14] MEDS: amLODIPine 5 MG TAB PO SCH (09:06)
== END 2023-09-14 11:15 | DRG 45 ==
LOC: M ED 20:09 → M ED INP 09-04 16:30 → M PCU 09-04 20:22 → M MSPAV 09-05 16:41
PROVIDERS: ADMIT Internal Medicine; ATTEND Internal Medicine
PROC: B246ZZZ Ultrasonography of Right and Left Heart (ICD-10-PCS; principal; 2023-09-05)
DX: I63.532 Cerebral infarction due to unspecified occlusion or stenosis of left posterior cerebral artery (principal); E11.40 Type 2 diabetes mellitus with diabetic neuropathy, unspecified; E11.65 Type 2 diabetes mellitus with hyperglycemia; M48.02 Spinal stenosis, cervical region; E87.5 Hyperkalemia; E87.1 Hypo-osmolality and hyponatremia; I10 Essential (primary) hypertension; E78.5 Hyperlipidemia, unspecified; K21.9 Gastro-esophageal reflux disease without esophagitis; F32.A Depression, unspecified; G47.33 Obstructive sleep apnea (adult) (pediatric); E66.9 Obesity, unspecified; M47.22 Other spondylosis with radiculopathy, cervical region; M50.11 Cervical disc disorder with radiculopathy, high cervical region; D72.829 Elevated white blood cell count, unspecified; K59.00 Constipation, unspecified; R94.6 Abnormal results of thyroid function studies; Z89.421 Acquired absence of other right toe(s); Z79.4 Long term (current) use of insulin; Z79.899 Other long term (current) drug therapy; Z68.35 Body mass index [BMI] 35.0-35.9, adult